=== PATIENT | male | born 1960 | race Caucasian/White ===

== ENCOUNTER 2019-05-06 01:30 | Emergency (ER) | payer BC ==
[~2019-05-06 01:30] MED LIST: CYCL10 PO; IBUP200 PO; LIDO5TP TOP; Mobic15 MG PO
== END 2019-05-06 02:00 | disposition left against medical advice (07) ==
LOC: ER 01:30
DX: Z53.21 Procedure and treatment not carried out due to patient leaving prior to being seen by health care provider (principal)

== ENCOUNTER 2019-05-11 15:34 | Emergency (ER) | payer BC ==
[~2019-05-11] VITALS: Ht 180.3 cm; Wt 81.7 kg
[2019-05-11] MEDS ORDERED: LEVEMIR FL100 UNIT/1 SC (16:13)
[2019-05-11] MEDS ORDERED: INSDET100 SC (16:17)
[2019-05-11] MEDS ORDERED: LISI20 PO (16:19)
[2019-05-11] MEDS ORDERED: AMLO10 PO (16:19)
[2019-05-11] MEDS ORDERED: Amaryl1 MG PO (16:19)
== END 2019-05-11 16:27 | disposition home or self-care (01) ==
LOC: ER 15:34
DX: Z76.0 Encounter for issue of repeat prescription (principal); I10 Essential (primary) hypertension; E11.42 Type 2 diabetes mellitus with diabetic polyneuropathy; Z79.4 Long term (current) use of insulin; Z79.899 Other long term (current) drug therapy
CPT/HCPCS: 82947; 99283

== ENCOUNTER 2019-05-24 17:01 | Emergency (ER) | payer BC ==
[~2019-05-24] VITALS: Ht 180.3 cm; Wt 90.7 kg
[~2019-05-24 17:01] MED LIST changes: +AMLO10 PO; +Amaryl1 MG PO; +INSDET100 SC; +LEVEMIR FL100 UNIT/1 SC; +LISI20 PO
[2019-05-24] MEDS ORDERED: BENADRYL25 MG PO (18:47)
[2019-05-24] MEDS ORDERED: Prednisone20 MG PO (18:47)
[2019-05-24] MEDS ORDERED: PRAVASTATIN SOD10 MG PO (19:06)
== END 2019-05-24 19:16 | disposition home or self-care (01) ==
LOC: ER 17:01
DX: L23.7 Allergic contact dermatitis due to plants, except food (principal); E11.42 Type 2 diabetes mellitus with diabetic polyneuropathy; I10 Essential (primary) hypertension; Z79.4 Long term (current) use of insulin; Z79.899 Other long term (current) drug therapy
CPT/HCPCS: 96372; 99282-25; J3301; Q0163

== ENCOUNTER 2019-05-31 03:52 | Emergency (ER) | payer SELFPAY ==
[~2019-05-31] VITALS: Ht 180.3 cm; Wt 99.8 kg
[~2019-05-31 03:52] MED LIST changes: +BENADRYL25 MG PO; +PRAVASTATIN SOD10 MG PO; +Prednisone20 MG PO
[2019-05-31] MEDS ORDERED: TRAM50 (04:08)
[2019-05-31] MEDS ORDERED: Vistaril50 MG PO (04:29)
== END 2019-05-31 04:51 | disposition home or self-care (01) ==
LOC: ER 03:52
DX: L23.7 Allergic contact dermatitis due to plants, except food (principal); E11.9 Type 2 diabetes mellitus without complications; I10 Essential (primary) hypertension; Z79.899 Other long term (current) drug therapy; Z79.4 Long term (current) use of insulin; Z79.891 Long term (current) use of opiate analgesic
CPT/HCPCS: 99283; J1200; J7512; Q0163

== ENCOUNTER 2019-06-09 18:05 | Emergency (ER) | payer SELFPAY ==
[~2019-06-09] VITALS: Ht 180.3 cm; Wt 99.8 kg
[~2019-06-09 18:05] MED LIST changes: +TRAM50; +Vistaril50 MG PO
[2019-06-09] MEDS ORDERED: Keflex500 MG PO (18:39)
[2019-06-09] MEDS ORDERED: Bactrim Ds Tab1 EACH PO (18:39)
== END 2019-06-09 18:57 | disposition home or self-care (01) ==
LOC: ER 18:05
DX: L03.114 Cellulitis of left upper limb (principal); L02.414 Cutaneous abscess of left upper limb; E11.9 Type 2 diabetes mellitus without complications; I10 Essential (primary) hypertension; E78.5 Hyperlipidemia, unspecified; Z79.899 Other long term (current) drug therapy; Z79.4 Long term (current) use of insulin
CPT/HCPCS: 99282

== ENCOUNTER 2019-06-20 22:52 | Emergency (ER) | payer OTHER ==
[~2019-06-20] VITALS: Ht 180.3 cm; Wt 104.3 kg
[~2019-06-20 22:52] MED LIST changes: +Bactrim Ds Tab1 EACH PO; +Keflex500 MG PO
== END 2019-06-21 00:26 | disposition home or self-care (01) ==
LOC: ER 22:52
DX: S50.812A Abrasion of left forearm, initial encounter (principal); S50.811A Abrasion of right forearm, initial encounter; R07.89 Other chest pain; E11.9 Type 2 diabetes mellitus without complications; I10 Essential (primary) hypertension; Z79.899 Other long term (current) drug therapy; Z79.4 Long term (current) use of insulin; X58.XXXA Exposure to other specified factors, initial encounter
CPT/HCPCS: 71046; 99283-25

== ENCOUNTER 2019-06-26 12:06 | Emergency (ER) | payer OTHER ==
[~2019-06-26] VITALS: Ht 180.3 cm; Wt 109.8 kg
[2019-06-26] MEDS ORDERED: MUPIROCIN15 GM TOP (13:06)
[2019-06-26] MEDS ORDERED: Ultram50 MG PO (13:06)
== END 2019-06-26 13:26 | disposition home or self-care (01) ==
LOC: ER 12:06
DX: S51.812D Laceration without foreign body of left forearm, subsequent encounter (principal); S61.511D Laceration without foreign body of right wrist, subsequent encounter; L03.114 Cellulitis of left upper limb; L03.113 Cellulitis of right upper limb; I10 Essential (primary) hypertension; E11.9 Type 2 diabetes mellitus without complications; Z79.899 Other long term (current) drug therapy; Z79.4 Long term (current) use of insulin
CPT/HCPCS: 99282

== ENCOUNTER 2019-06-30 03:59 | Emergency (ER) | payer OTHER ==
[~2019-06-30] VITALS: Ht 172.7 cm; Wt 102.1 kg
[~2019-06-30 03:59] MED LIST changes: +MUPIROCIN15 GM TOP; +Ultram50 MG PO
== END 2019-06-30 05:00 | disposition home or self-care (01) ==
LOC: ER 03:59
DX: L03.114 Cellulitis of left upper limb (principal); E11.9 Type 2 diabetes mellitus without complications; I10 Essential (primary) hypertension; Z91.14 Patient's other noncompliance with medication regimen; Z79.899 Other long term (current) drug therapy
CPT/HCPCS: 99282; A9270-GY

== ENCOUNTER 2019-07-12 01:52 | Emergency (ER) | payer OTHER ==
[~2019-07-12] VITALS: Ht 180.3 cm; Wt 104.3 kg
[2019-07-12] MEDS ORDERED: Mupirocin22 GM TOP (04:13)
== END 2019-07-12 04:33 | disposition home or self-care (01) ==
LOC: ER 01:52
DX: L03.012 Cellulitis of left finger (principal); E11.9 Type 2 diabetes mellitus without complications; I10 Essential (primary) hypertension; Z79.899 Other long term (current) drug therapy
CPT/HCPCS: 99283

== ENCOUNTER 2019-07-26 00:09 | Emergency (ER) | payer OTHER ==
[~2019-07-26] VITALS: Ht 180.3 cm; Wt 106.6 kg
[~2019-07-26 00:09] MED LIST changes: +Mupirocin22 GM TOP
[2019-07-26] MEDS ORDERED: CEFP200 PO (00:47)
== END 2019-07-26 00:53 | disposition home or self-care (01) ==
LOC: ER 00:09
DX: L03.012 Cellulitis of left finger (principal); R23.8 Other skin changes; E11.9 Type 2 diabetes mellitus without complications; I10 Essential (primary) hypertension; Z79.899 Other long term (current) drug therapy
CPT/HCPCS: 99282

== ENCOUNTER 2019-07-28 01:11 | Observation (INO) | payer OTHER ==
[~2019-07-28] VITALS: Ht 180.3 cm; Wt 101.6 kg
[~2019-07-28 01:11] MED LIST changes: +CEFP200 PO
[2019-07-28 02:06] LABS: BASOPHILS ABSOLUTE AUTO 0.03 K/mm3 (0.00-0.23); BASOPHILS PERCENT AUTO 0 % (0-2); EOSINOPHILS ABSOLUTE AUTO 0.17 K/mm3 (0.00-0.68); EOSINOPHILS PERCENT AUTO 1 % (0-6); Hematocrit 43.3 % (37.0-53.0); Hemoglobin 14.2 g/dL (13.5-17.5); IMMATURE GRAN ABSOLUTE AUTO 0.13 K/mm3 (0.00-0.10); IMMATURE GRAN PERCENT AUTO 1 % (0-1); LYMPHOCYTES ABSOLUTE AUTO 1.46 K/mm3 (0.84-5.20); LYMPHOCYTES PERCENT AUTO 12 % (21-46); MONOCYTES ABSOLUTE AUTO 0.75 K/mm3 (0.16-1.47); MONOCYTES PERCENT AUTO 6 % (4-13); Mean Corpuscular HGB Conc 32.8 g/dL (31.5-36.5); Mean Corpuscular Volume 85 fL (80-100); Mean Platelet Volume 9.7 fL (9.1-12.4); NEUTROPHILS ABSOLUTE AUTO 9.51 K/mm3 (1.96-9.15); NEUTROPHILS PERCENT AUTO 79 % (41-73); Platelet Count 286 K/mm3 (150-400); RDW Coefficient Variation 13.9 % (11.7-14.2); RDW Standard Deviation 43.2 fL (35.1-46.3); Red Blood Cell Count 5.07 M/mm3 (4.30-5.90); White Blood Cell Count 12.05 K/mm3 (4.00-11.30)
[2019-07-28 02:20] LABS: Alanine Aminotransfer (ALT/SGP 33 U/L (12-78); Albumin, Blood 3.1 g/dL (3.4-5.0); Albumin/Globulin Ratio 0.8 (0.8-1.8); Alk Phos 113 U/L (50-136); Anion Gap 11 mmol/L (6-16); Aspartate Aminotrans (AST/SGOT 17 U/L (12-37); Bilirubin, Total 0.5 mg/dL (0.1-1.0); Blood Urea Nitrogen 13 mg/dL (8-24); Bun/Creatinine Ratio 19.5 (12.0-20.0); CO2, Blood 22 mmol/L (21-32); Calcium, Blood 8.2 mg/dL (8.5-10.1); Chloride, Blood 108 mmol/L (98-108); Creatinine, Blood 0.67 mg/dL (0.60-1.20); Globulin, Blood 3.8 g/dL (2.2-4.0); Glomerular Filtration Rate >60 (60-); Glucose, Blood 246 mg/dL (70-99); Potassium, Blood 3.5 mmol/L (3.5-5.5); Sodium, Blood 141 mmol/L (136-145); Total Protein, Blood 6.9 g/dL (6.4-8.2); Troponin I 0.059 ng/mL (0.000-0.040)
[2019-07-28] MEDS ORDERED: GABA300 PO (04:57)
--- NOTE | 2019-07-28 06:13 | NUR ---
SHIFT SUMMARY PT WAS A NEW ADMIT DURING THE NIGHT, ARRIVING ON THE FLOOR AT 0452. HE IS A&O X 4 AND INDEPENDENT IN THE ROOM. PT WAS ADMITTED FOR CHEST PAIN AFTER HAVING AN ANXIETY ATTACK DURING A POLICE STAND-OFF AT HIS HOME PER ER REPORT. HE HAS DENIED CP SINCE ADMISSION. NO C/O NAUSEA OR SOB. TELE SHOWED NSR IN THE 70S. VITALS STABLE. NO ACUTE CHANGES IN PT CONDITION NOTED SINCE ADMISSION. WILL CONTINUE TO MONITOR AND TREAT PER EMAR UNTIL HAND OFF TO DAY SHIFT RN.
--- NOTE | 2019-07-28 07:48 | NUR ---
trop ch 1.15, attempt to notify dani via phone, message to voicemail. charge aide notified.
[2019-07-28 09:01] LABS: International Normalized Ratio 0.99; Prothrombin Time Results 10.6 Sec (9.7-11.5)
[2019-07-28 13:27] LABS: U Amphetamine Screen Not Detected; U Barbituate Screen Not Detected; U Benzodiazapine Screen Not Detected; U Buprenorphine Screen Not Detected; U Cannabinoids Screen Not Detected; U Cocaine Screen Not Detected; U Methadone Screen Not Detected; U Methamphetamine Screen Not Detected; U Opiates Screen Not Detected; U Oxycodone Screen Not Detected; U Phencyclidine Screen Not Detected; U Propoxyphene Screen Not Detected
--- NOTE | 2019-07-28 16:26 | NUR ---
SUMMARY TROP CH THIS AM 1.15, DR CRONIN START PT ON HEP GTT & ORDER CARDIAC CONSULT. DR BATISTA IN TO SEE PT, REVIEW TX'S, ORDER CARDIAC STRESS TEST. NUC MED COMPLETE 1ST PORTION TODAY, HE WILL HAVE 2ND PORTION IN AM, NPO X WATER/MEDS AFTER MIDNITE. HE HAS STATED NO CHEST PAIN, PRESSURE OR DISCOMFORT T/O DAY. NO N/T EXTREMITIES. TELE MX REPORT NSR T/O DAY, HR 70-80'S. VSS. PT STATES HAS HAD MULT STRESSORS RECENTLY, HIS MOTHER CALLED STATE SHE IS STEPPING IN TO ASSIST HIM WITH LEGAL ISSUES/STRESSORS, RELAYED TO PT. HE HAS BEEN CALM & INCREASINGLY PLEASANT, ATTEMPTING TO RELAX TODAY.
--- NOTE | 2019-07-29 06:05 | NUR ---
PENETRATION TESTER SUMMARY PT A/O X4. PLEASANT AND COOPERATIVE. PT DENIES CHEST PAIN, NAUSEA AND DIZZINIESS. HEPARIN DRIP RATE HAS BEEN TITRATED UP PER PHARMACY. HEPARIN BOLUS ALSO GIVEN VIA IV PER PHARMACY. BOTH HEPARINS VERIFIED WITH JADEN BALDERAS. SEE EMAR FOR MORE INFO. PT WAS FOUND TO BE IN THE SHOWER WHILE HEPARIN WAS STILL RUNNING AND TELE WAS STILL ON. PT WAS NOTIFIED EARILER IN SHIFT THAT I WOULD CHECK WITH THE DR. FIRST TO KNOW IF HE CAN BE DISCONNCTED FROM HEPARIN TO TAKE SHOWER. HOWEVER, PT HAD ALREADY WENT TO THE BATHROOM BY HIMSELF BY THE TIME I COULD TELL HIM THAT HE CANNOT BE DISCONNECTED FROM HEPARIN DRIP. I WENT IN AFTER I FOUND OUT HE WAS IN THE SHOWER AND ASKED HIM ABOUT HIS IV. PT DID NOT GET IV SITE WET AND WAS CONNECTED TO HEPARIN THE ENTIRE TIME. TELE STICKERS WERE WET AND REPLACED BY VANDANA STOUT. PT INSTRUCTED THAT HE CANNOT DISCONNECT HIS IV AND IF HE NEEDS ANYTHING, TO USE CALL LIGHT AND LET STAFF KNOW. PT INSTRUCTED IT IS VERY IMPORTANT TO STAY CONNECTED TO HEPARIN DRIP. PT SLEPT WELL THROUGH THE NIGHT. VSS, WILL CONTINUE TO MONITOR.
--- NOTE | 2019-07-29 12:14 | NUR ---
HEPERIN GTT STOPPED AT 1210
[2019-07-29] MEDS ORDERED: ATOR80 PO (15:13)
[2019-07-29] MEDS ORDERED: METO50ER PO (15:14)
[2019-07-29] MEDS ORDERED: CLOP75 PO (15:14)
[2019-07-29] MEDS ORDERED: ASPI81CH PO (15:14)
--- NOTE | 2019-07-29 16:35 | NUR ---
1548 PT DISCHARGED HOME VIA PERSONAL VEHICLE ACCOMPANIED AND DRIVEN BY HIS MOTHER. PT ESCORTED TO FACILITY ENTRANCE VIA W/C BY STAFFING BRANCH MANAGER. IV REMOVED. D/C PAPERWORK REVIEWED WITH PT AND COPY PROVIDED. NEW RX FAXED TO [facility] PER PT REQUEST. PT DENIED CHEST PAIN THIS SHIFT, TOLERATED STRESS TEST WELL.
== END 2019-07-29 15:48 | disposition home or self-care (01) ==
LOC: ER 01:11 → MEDS 01:12
PROVIDERS: Emergency Medicine; Family Medicine; Pharmacist; ADMIT Hospitalist
DX: I21.4 Non-ST elevation (NSTEMI) myocardial infarction (principal); I10 Essential (primary) hypertension; E78.5 Hyperlipidemia, unspecified; I24.9 Acute ischemic heart disease, unspecified; E11.59 Type 2 diabetes mellitus with other circulatory complications; D72.829 Elevated white blood cell count, unspecified; Z79.82 Long term (current) use of aspirin; Z79.84 Long term (current) use of oral hypoglycemic drugs; Z79.899 Other long term (current) drug therapy
CPT/HCPCS: 36415; 71046; 78452; 80053; 82947; 84484; 85025; 85610; 85730; 93005; 93010; 93017; 93306; 96374; 96376; 99285-25; A9500; G0378; J0706; J1644; J2785

== ENCOUNTER 2022-04-27 22:52 | Emergency (ER) | payer OTHER ==
[~2022-04-27] VITALS: Ht 175.3 cm; Wt 108.9 kg
[~2022-04-27 22:52] MED LIST changes: +ASPI81CH PO; +ATOR80 PO; +CLOP75 PO; +GABA300 PO; +METO50ER PO
[2022-04-28] MEDS ORDERED: DOXY100 PO (00:55)
[2022-04-28] MEDS ORDERED: METF500C PO (01:19)
== END 2022-04-28 03:20 | disposition home or self-care (01) ==
LOC: ER 22:52
DX: L02.211 Cutaneous abscess of abdominal wall (principal); E11.65 Type 2 diabetes mellitus with hyperglycemia; I10 Essential (primary) hypertension; E78.5 Hyperlipidemia, unspecified; I25.2 Old myocardial infarction; F17.290 Nicotine dependence, other tobacco product, uncomplicated; Z79.899 Other long term (current) drug therapy; Z79.82 Long term (current) use of aspirin
CPT/HCPCS: 10061; 82947; 99283-25; A9270; J1815

== ENCOUNTER 2022-06-01 18:22 | Emergency (ER) | payer OTHER ==
[~2022-06-01] VITALS: Ht 175.3 cm; Wt 111.1 kg
[~2022-06-01 18:22] MED LIST changes: +DOXY100 PO; +METF500C PO
[2022-06-01 18:55] LABS: BASOPHILS ABSOLUTE AUTO 0.03 K/mm3 (0.00-0.23); BASOPHILS PERCENT AUTO 0 % (0-2); EOSINOPHILS ABSOLUTE AUTO 0.16 K/mm3 (0.00-0.68); EOSINOPHILS PERCENT AUTO 1 % (0-6); Hematocrit 38.2 % (37.0-53.0); Hemoglobin 13.2 g/dL (13.5-17.5); IMMATURE GRAN ABSOLUTE AUTO 0.11 K/mm3 (0.00-0.10); IMMATURE GRAN PERCENT AUTO 1 % (0-1); LYMPHOCYTES ABSOLUTE AUTO 1.17 K/mm3 (0.84-5.20); LYMPHOCYTES PERCENT AUTO 10 % (21-46); MONOCYTES ABSOLUTE AUTO 0.87 K/mm3 (0.16-1.47); MONOCYTES PERCENT AUTO 7 % (4-13); Mean Corpuscular HGB 26.8 pg (26.0-34.0); Mean Corpuscular HGB Conc 34.6 g/dL (31.5-36.5); Mean Corpuscular Volume 78 fL (80-100); Mean Platelet Volume 9.2 fL (9.1-12.4); NEUTROPHILS ABSOLUTE AUTO 9.79 K/mm3 (1.96-9.15); NEUTROPHILS PERCENT AUTO 81 % (41-73); Platelet Count 458 K/mm3 (150-400); RDW Coefficient Variation 12.8 % (11.7-14.2); RDW Standard Deviation 36.5 fL (35.1-46.3); Red Blood Cell Count 4.92 M/mm3 (4.30-5.90); White Blood Cell Count 12.13 K/mm3 (4.00-11.30)
[2022-06-01 19:16] LABS: Albumin/Globulin Ratio 0.4 (0.8-1.8); Bilirubin, Total 0.4 mg/dL (0.1-1.0); Bun/Creatinine Ratio 13.7 (12.0-20.0); Calcium, Blood 8.6 mg/dL (8.5-10.1); Creatinine, Blood 0.51 mg/dL (0.60-1.20); Globulin, Blood 5.1 g/dL (2.2-4.0); Potassium, Blood 3.1 mmol/L (3.5-5.5); Total Protein, Blood 7.1 g/dL (6.4-8.2)
[2022-06-01] MEDS ORDERED: SULTRIDS PO (20:47)
== END 2022-06-01 20:57 | disposition home or self-care (01) ==
LOC: ER 18:22
PROVIDERS: Emergency Medicine
DX: L02.31 Cutaneous abscess of buttock (principal); E11.65 Type 2 diabetes mellitus with hyperglycemia; I10 Essential (primary) hypertension; I25.2 Old myocardial infarction; E78.5 Hyperlipidemia, unspecified; F17.220 Nicotine dependence, chewing tobacco, uncomplicated; Z79.899 Other long term (current) drug therapy; Z79.82 Long term (current) use of aspirin; Z79.84 Long term (current) use of oral hypoglycemic drugs
CPT/HCPCS: 36415; 80053; 82947; 85025; A9270

== ENCOUNTER 2022-06-06 12:32 | Inpatient (IN) | payer OTHER ==
[~2022-06-06] VITALS: Ht 177.8 cm; Wt 108.9 kg
[~2022-06-06 12:32] MED LIST changes: +SULTRIDS PO
[2022-06-06 14:03] LABS: BASOPHILS ABSOLUTE AUTO 0.02 K/mm3 (0.00-0.23); BASOPHILS PERCENT AUTO 0 % (0-2); EOSINOPHILS ABSOLUTE AUTO 0.24 K/mm3 (0.00-0.68); EOSINOPHILS PERCENT AUTO 3 % (0-6); Hematocrit 40.3 % (37.0-53.0); Hemoglobin 13.4 g/dL (13.5-17.5); IMMATURE GRAN PERCENT AUTO 1 % (0-1); LYMPHOCYTES ABSOLUTE AUTO 1.38 K/mm3 (0.84-5.20); LYMPHOCYTES PERCENT AUTO 19 % (21-46); MONOCYTES ABSOLUTE AUTO 0.45 K/mm3 (0.16-1.47); MONOCYTES PERCENT AUTO 6 % (4-13); Mean Corpuscular HGB 26.1 pg (26.0-34.0); Mean Corpuscular HGB Conc 33.3 g/dL (31.5-36.5); Mean Corpuscular Volume 78 fL (80-100); Mean Platelet Volume 9.3 fL (9.1-12.4); NEUTROPHILS ABSOLUTE AUTO 5.12 K/mm3 (1.96-9.15); NEUTROPHILS PERCENT AUTO 70 % (41-73); Platelet Count 557 K/mm3 (150-400); RDW Coefficient Variation 12.8 % (11.7-14.2); RDW Standard Deviation 36.6 fL (35.1-46.3); Red Blood Cell Count 5.14 M/mm3 (4.30-5.90); White Blood Cell Count 7.31 K/mm3 (4.00-11.30)
[2022-06-06 14:12] LABS: Albumin/Globulin Ratio 0.4 (0.8-1.8); Bilirubin, Total 0.3 mg/dL (0.1-1.0); Bun/Creatinine Ratio 12.1 (12.0-20.0); Calcium, Blood 8.4 mg/dL (8.5-10.1); Creatinine, Blood 0.5 mg/dL (0.60-1.20); Globulin, Blood 5.3 g/dL (2.2-4.0); Potassium, Blood 3.5 mmol/L (3.5-5.5); Total Protein, Blood 7.3 g/dL (6.4-8.2)
--- NOTE | 2022-06-06 19:37 | NUR ---
ARRIVAL SUMMARY PT ARRIVED TO THE FLOOR AT 1830, A/OX4, REPORTS NOT WANTING TO STAND UP D/T ABSCESS DRAINAGE, TRANSFERRED TO BED USING SLIDER SHEET, CHANGED OUT DIRTY LINENS FROM ER AND ASSESSED ABSCESS WHICH HAD MODERATE SANGUINOUS DRAINAGE c PUS. WHITE SUPER ABSORBANCY PAD PLACED UNDER PATIENT AND ABD PLACED OVER ABSCESS TO HELP MANAGE DRAINAGE. PT SETTLED IN ROOM. REPORT GIVEN TO TODD STANLEY.
[2022-06-06 20:33] LABS: Influenza A, PCR NEGATIVE (NEGATIVE); Influenza B, PCR NEGATIVE (NEGATIVE); Resp Syncytial Virus, PCR NEGATIVE (NEGATIVE); SARS-Cov-2 (COVID-19) PCR, MMC NEGATIVE (NEGATIVE)
--- NOTE | 2022-06-07 03:59 | NUR ---
VSS. GROIN AND BUTTOX ABSCESS COVERED WITH ABD PADS, CHANGED PRN. PURULENT DRAINAGE NOTED FROM BOTH ABSCESSES. BOTH SITES ARE NOTED TO BE SWOLLEN AND RED, THEY REMAIN BLANCHABLE. THE PT SLEPT T/O THE WHOLE NIGHT. PT DID NOT REQUIRE ANY PAIN MEDICATION. PT HAS BEEN NPO SINCE 0000. PLAN FOR PT TO HAVE AN I&D TODAY. THE PATIENT IS CURRENTLY SLEEPING, IN NO DISTRESS, CALL LIGHT IN REACH.
[2022-06-07 04:53] LABS: BASOPHILS ABSOLUTE AUTO 0.04 K/mm3 (0.00-0.23); BASOPHILS PERCENT AUTO 1 % (0-2); EOSINOPHILS PERCENT AUTO 5 % (0-6); Hematocrit 37.5 % (37.0-53.0); Hemoglobin 12.2 g/dL (13.5-17.5); IMMATURE GRAN ABSOLUTE AUTO 0.12 K/mm3 (0.00-0.10); IMMATURE GRAN PERCENT AUTO 2 % (0-1); LYMPHOCYTES ABSOLUTE AUTO 1.85 K/mm3 (0.84-5.20); LYMPHOCYTES PERCENT AUTO 28 % (21-46); MONOCYTES ABSOLUTE AUTO 0.57 K/mm3 (0.16-1.47); MONOCYTES PERCENT AUTO 9 % (4-13); Mean Corpuscular HGB 25.8 pg (26.0-34.0); Mean Corpuscular HGB Conc 32.5 g/dL (31.5-36.5); Mean Corpuscular Volume 79 fL (80-100); NEUTROPHILS ABSOLUTE AUTO 3.76 K/mm3 (1.96-9.15); NEUTROPHILS PERCENT AUTO 57 % (41-73); Platelet Count 498 K/mm3 (150-400); RDW Coefficient Variation 12.9 % (11.7-14.2); RDW Standard Deviation 36.9 fL (35.1-46.3); Red Blood Cell Count 4.73 M/mm3 (4.30-5.90); White Blood Cell Count 6.64 K/mm3 (4.00-11.30)
[2022-06-07 08:02] LABS: Albumin, Blood 1.8 g/dL (3.4-5.0); Albumin/Globulin Ratio 0.4 (0.8-1.8); Bilirubin, Total 0.3 mg/dL (0.1-1.0); Calcium, Blood 8.1 mg/dL (8.5-10.1); Creatinine, Blood 0.56 mg/dL (0.60-1.20); Globulin, Blood 4.5 g/dL (2.2-4.0); Potassium, Blood 3.2 mmol/L (3.5-5.5); Total Protein, Blood 6.3 g/dL (6.4-8.2)
--- NOTE | 2022-06-07 08:46 | NUR ---
phone conversation with dr. lock, blood sugar is 213. Pt's surgery is scheduled for 1500. Dr. Lock with orders to hold insulin due to NPO status.
--- NOTE | 2022-06-07 13:12 | NUR ---
Pt is NPO awaiting surgery. Room air. IV in left wrist, patent and infusing. Pt with three abscesses on inner left thigh, inner right thigh and right glute draining serosanguinous drainage. Insulin held per Dr. Lock while pt is NPO. Pt continually denies pain when asked, states, "I don't know what you can do to help." Withdrawn mood. He has remained quiet in bed, attempting to rest most of the shift.
--- NOTE | 2022-06-07 19:38 | NUR ---
PT UNDERWENT I AND D PROCEDURE TODAY FOR ABSCESSES ON INNER THIGHS AND RIGHT BUTTOCK. THERE IS A DRE DRAIN TO THE RIGHT BUTTOCK, COVERED WITH A CLEAN/DRY/INTACT DRESSING. TWO ABSCESSES ON INNER RIGHT THIGH AND INNER LEFT THIGH COVERED WITH GAUZE/PAPER TAPE. PT IS RESTING WELL AFTER SURGERY. VITAL SIGNS STABLE. 2LPM O2 VIA NC. GOOD APPETITE, TOLERATING PO INTAKE. PT USES CALL LIGHT APPROPRIATELY.
[2022-06-07 23:37] LABS: Vancomycin, Trough 27.2 ug/mL (5.0-10.0)
--- NOTE | 2022-06-08 01:18 | NUR ---
BLOOD SUAGR CALL PLACED TO DR SAVAGE AROUND 2004 FOR A CBG OF 415, OBTAINED ORDER FOR 8 UNITS OF HUMALOG NOW. CBG CHECKED AGAIN AROUND 2099 BEFORE HS DOSE OF GLARGINE, IT WAS 446. CBG CHECKED AGAIN AROUND 2214 AND IT WAS 457, ANOTHER CALLED PLACED TO DR SAVAGE AND RECIEVED AN ORDER FOR 6 UNITS OF HUMALOG NOW. CBG RECHECKED AT 0020 WITH RESULTS OF 408. PLAN TO CHECK PTS CBG THIS AM TO ASSESS IF IT IS STILL TRENDING DOWN. PLAN TO CALL HOSPITALIST WITH FURTHER CONCERNS.
[2022-06-08 04:50] LABS: BASOPHILS ABSOLUTE AUTO 0.02 K/mm3 (0.00-0.23); BASOPHILS PERCENT AUTO 0 % (0-2); EOSINOPHILS ABSOLUTE AUTO 0.01 K/mm3 (0.00-0.68); EOSINOPHILS PERCENT AUTO 0 % (0-6); Hemoglobin 11.8 g/dL (13.5-17.5); IMMATURE GRAN ABSOLUTE AUTO 0.15 K/mm3 (0.00-0.10); IMMATURE GRAN PERCENT AUTO 2 % (0-1); LYMPHOCYTES PERCENT AUTO 14 % (21-46); MONOCYTES ABSOLUTE AUTO 0.76 K/mm3 (0.16-1.47); MONOCYTES PERCENT AUTO 8 % (4-13); Mean Corpuscular HGB 25.4 pg (26.0-34.0); Mean Corpuscular HGB Conc 31.9 g/dL (31.5-36.5); Mean Corpuscular Volume 80 fL (80-100); Mean Platelet Volume 9.2 fL (9.1-12.4); NEUTROPHILS ABSOLUTE AUTO 7.35 K/mm3 (1.96-9.15); NEUTROPHILS PERCENT AUTO 77 % (41-73); Platelet Count 521 K/mm3 (150-400); RDW Coefficient Variation 13.1 % (11.7-14.2); RDW Standard Deviation 37.2 fL (35.1-46.3); Red Blood Cell Count 4.64 M/mm3 (4.30-5.90); White Blood Cell Count 9.59 K/mm3 (4.00-11.30)
[2022-06-08 05:15] LABS: Albumin, Blood 1.8 g/dL (3.4-5.0); Anion Gap 8 mmol/L (6-16); Blood Urea Nitrogen 15 mg/dL (8-24); Bun/Creatinine Ratio 10.3 (12.0-20.0); CO2, Blood 23 mmol/L (21-32); Calcium, Blood 7.7 mg/dL (8.5-10.1); Chloride, Blood 103 mmol/L (98-108); Creatinine, Blood 1.45 mg/dL (0.60-1.20); Glomerular Filtration Rate 55 (60-); Glucose, Blood 422 mg/dL (70-99); Phosphorus, Blood 3.2 mg/dL (2.5-4.9); Potassium, Blood 4.2 mmol/L (3.5-5.5); Sodium, Blood 134 mmol/L (136-145); Vancomycin, Random 22.9 ug/mL
--- NOTE | 2022-06-08 05:35 | NUR ---
BLOOD SUAGR AM LAB RESULTS SHOW A CBG OF 402. CALL PLACED TO DR NEVILLE, OBTAINED ORDER FOR 15 U LANTUS NOW AND THEN 12U OF LANTUS BID. PLAN TO CALL WITH FURTHER CONCERNS
--- NOTE | 2022-06-08 05:36 | NUR ---
POD1 FOR GROIN ABSCESS REMOVAL ABD DRE DRAIN PLACEMENT. MODERATE SS DRAINAGE NOTED FROM THE DRE. NEW 4X4 GAUZE PLACED ON DRE, OTHER DRESSINGS ARE C/D/I. VSS. THE PT SLEPT ON AND OFF T/O THE NIGHT. PAIN MANAGED WITH TYLENOL AND FENTYNAL. PT VOIDING INTO URINAL AND PASSING FLATTUS W/O DIFFICULTY. TOLLERATING PO INTAKE W/O N/V. PT DID NOT GET OOB THIS SHIFT. LPAN FOR PT TO REMAIN ON IV ABD AND D/C HOME WHEN APPROPRIATE. THE PATIENT IS RESTING IN BED, IN NO DISTRESS, CALL LIGHT IN REACH
--- NOTE | 2022-06-08 15:38 | NUR ---
06/08/22 1538 Karli Trotter VERIFICATIONS: EDIT CHART.
--- NOTE | 2022-06-08 16:31 | NUR ---
SHIFT SUMMARY PT POD #1 FOR I&D TO R GROIN, THIGH, AND BUTTOCK. 4X4 [address] IN PL[address] WITH TAPE, CDI. PT VERY WITHDRAWN AND FATIGUED. PT DECLINES TO GET UP OR TO TAKE A SHOWER. BROTHER OF THE PT REPORTED THAT THIS BEHAVIOR IS HIS BASELINE. PT'S INSULIN ADJUSTED AND BLOOD GLUCOSE LEVELS TRENDING DOWN. PT CONTINUING TO RECEIVE IV ABX AND VSS.
[2022-06-09 05:19] LABS: BASOPHILS ABSOLUTE AUTO 0.03 K/mm3 (0.00-0.23); BASOPHILS PERCENT AUTO 0 % (0-2); EOSINOPHILS ABSOLUTE AUTO 0.14 K/mm3 (0.00-0.68); EOSINOPHILS PERCENT AUTO 1 % (0-6); Hematocrit 36.8 % (37.0-53.0); Hemoglobin 11.8 g/dL (13.5-17.5); IMMATURE GRAN ABSOLUTE AUTO 0.19 K/mm3 (0.00-0.10); IMMATURE GRAN PERCENT AUTO 2 % (0-1); LYMPHOCYTES ABSOLUTE AUTO 1.92 K/mm3 (0.84-5.20); LYMPHOCYTES PERCENT AUTO 18 % (21-46); MONOCYTES ABSOLUTE AUTO 0.81 K/mm3 (0.16-1.47); MONOCYTES PERCENT AUTO 8 % (4-13); Mean Corpuscular HGB 25.7 pg (26.0-34.0); Mean Corpuscular HGB Conc 32.1 g/dL (31.5-36.5); Mean Corpuscular Volume 80 fL (80-100); NEUTROPHILS ABSOLUTE AUTO 7.43 K/mm3 (1.96-9.15); NEUTROPHILS PERCENT AUTO 71 % (41-73); Platelet Count 470 K/mm3 (150-400); RDW Coefficient Variation 13.2 % (11.7-14.2); RDW Standard Deviation 37.9 fL (35.1-46.3); Red Blood Cell Count 4.59 M/mm3 (4.30-5.90); White Blood Cell Count 10.52 K/mm3 (4.00-11.30)
[2022-06-09 05:45] LABS: Albumin, Blood 1.8 g/dL (3.4-5.0); Anion Gap 8 mmol/L (6-16); Blood Urea Nitrogen 17 mg/dL (8-24); Bun/Creatinine Ratio 7.7 (12.0-20.0); CO2, Blood 23 mmol/L (21-32); Calcium, Blood 7.8 mg/dL (8.5-10.1); Chloride, Blood 109 mmol/L (98-108); Creatinine, Blood 2.21 mg/dL (0.60-1.20); Glomerular Filtration Rate 33 (60-); Glucose, Blood 182 mg/dL (70-99); Phosphorus, Blood 3.6 mg/dL (2.5-4.9); Potassium, Blood 3.5 mmol/L (3.5-5.5); Sodium, Blood 140 mmol/L (136-145)
--- NOTE | 2022-06-09 07:30 | NUR ---
PT SLEPT MOST OF NIGHT. NEEDS ENC TO PARTICIPATE IN ACTIVITY, BLOOD SUGARS ARE IMPROVING.VOIDING.IV FLUIDS WERE INFUSING AT SHIFT CHANGE AND STOPPED THIS AM ORDERED FOR 1LITER.PT TAKING SOME PO THIS SHIFT WHICH IS NOTED IMPROVEMENT FROM REPORTED ABSENCE OF PO INTAKE DURING DAY SHIFT.
--- NOTE | 2022-06-09 09:35 | NUR ---
ASSUMED CARE OF PT AT THIS TIME. INTRODUCED MYSELF TO PT, NO NEEDS AT THIS TIME, REQUESTS TO "JUST SLEEP".
--- NOTE | 2022-06-09 09:58 | NUR ---
PT REFUSING MORNING MEDS AT THIS TIME. "I JUST WANT TO SLEEP" WILL ADMINISTER AM MEDICATIONS IN 1 HR. PT AGREES.
--- NOTE | 2022-06-09 15:36 | NUR ---
SHIFT SUMMARY: POD 2 PINROSE DRAIN ON RIGHT BUTTOCK PATIENT IS A&OX4. VS ARE WNL AND IS ON RA. PATIENT DENIES PAIN AT THIS TIME. DRESSING WAS JUST CHANGED WITH GAUZE, ABD PAD, AND HIS DEPENDS THAT ARE NOW C/D/I. DENIES NUMBNESS OR TINGLING IN ALL EXTREMITIES. HE IS A SBA TO THE BATHROOM AND BACK TO BED. HE IS TOLERATING PO INTAKE AND IS VOIDING/PASSING GAS. CALLS APPROPRIATELY. CALL LIGHT WITHIN REACH. THE PLAN IS TO CONTINUE IV FLUIDS TO AIDE WITH IMPROVING HIS KIDNEY LABS/FUNCTION.
[2022-06-10 05:30] LABS: BASOPHILS ABSOLUTE AUTO 0.03 K/mm3 (0.00-0.23); BASOPHILS PERCENT AUTO 0 % (0-2); EOSINOPHILS ABSOLUTE AUTO 0.13 K/mm3 (0.00-0.68); EOSINOPHILS PERCENT AUTO 2 % (0-6); Hemoglobin 11.4 g/dL (13.5-17.5); IMMATURE GRAN ABSOLUTE AUTO 0.16 K/mm3 (0.00-0.10); IMMATURE GRAN PERCENT AUTO 2 % (0-1); LYMPHOCYTES ABSOLUTE AUTO 1.96 K/mm3 (0.84-5.20); LYMPHOCYTES PERCENT AUTO 23 % (21-46); MONOCYTES ABSOLUTE AUTO 0.72 K/mm3 (0.16-1.47); MONOCYTES PERCENT AUTO 8 % (4-13); Mean Corpuscular HGB 25.6 pg (26.0-34.0); Mean Corpuscular HGB Conc 31.7 g/dL (31.5-36.5); Mean Corpuscular Volume 81 fL (80-100); Mean Platelet Volume 9.1 fL (9.1-12.4); NEUTROPHILS ABSOLUTE AUTO 5.69 K/mm3 (1.96-9.15); NEUTROPHILS PERCENT AUTO 66 % (41-73); Platelet Count 439 K/mm3 (150-400); RDW Coefficient Variation 13.4 % (11.7-14.2); RDW Standard Deviation 38.9 fL (35.1-46.3); Red Blood Cell Count 4.45 M/mm3 (4.30-5.90); White Blood Cell Count 8.69 K/mm3 (4.00-11.30)
[2022-06-10 05:53] LABS: Albumin, Blood 1.7 g/dL (3.4-5.0); Anion Gap 9 mmol/L (6-16); Blood Urea Nitrogen 14 mg/dL (8-24); Bun/Creatinine Ratio 5.9 (12.0-20.0); CO2, Blood 21 mmol/L (21-32); Chloride, Blood 113 mmol/L (98-108); Creatinine, Blood 2.36 mg/dL (0.60-1.20); Glomerular Filtration Rate 31 (60-); Glucose, Blood 111 mg/dL (70-99); Phosphorus, Blood 4.2 mg/dL (2.5-4.9); Potassium, Blood 3.4 mmol/L (3.5-5.5); Sodium, Blood 143 mmol/L (136-145)
--- NOTE | 2022-06-10 07:25 | NUR ---
POD 3 S/P I&D. DRE DRAIN LOOSELY IN PLACE. SITE W/SS DRNG, ABD PAD CHANGED X1 THIS SHIFT. PT REP PAIN MINIMAL, MED W/TYLENOL W/REP RELIEF. PT VOIDING W/O DIFFICULTY. IVF ADN ABX CONT PER ORDERS.
--- NOTE | 2022-06-10 14:52 | NUR ---
SHIFT SUMMARY: POD 3 LEFT BUTTOCKS I&D NO SIGNIFICANT CHANGES. PATIENT IS TOLERATING SMALL AMOUNTS OF PO INTAKE AND IS VOIDING/HAVING BMS/PASSING GAS. DR. FORDE CAME BY THE PATIENTS ROOM EARLIER TODAY AND TOOK OUT THE PINROSES SINCE THEY WERE FALLING OUT WHICH HE TOLERATED WELL. HE WAS ABLE TO SHOWER SHORTLY AFTER HAVING THE PINROSES REMOVED AND GOT CLEANED UP. HE IS A SBA TO THE BATHROOM. PAIN IS MANAGED WITH PO TYLENOL. ON HIS TWO INCISION SITES ON HIS CHARLI AREA HE HAS GAUZE AND AN ABD PAD WITH HIS DEPENDS THAT ARE C/D/I. CALLS APPROPRIATELY. CALL LIGHT WITHIN REACH. THE PLAN IS TO HAVE HIS LABS DRAWN AGAIN TO HOPEFULLY SEE IMPROVEMENT. IF THERE IS IMPROVEMENT AND IF ITS APPROPRIATE HE MIGHT BE ABLE TO GO HOME TOMORROW.
--- NOTE | 2022-06-11 06:31 | NUR ---
PT HAD UNEVENTFUL NIGHT. VSS. PT APPEARED TO SLEEP FOR MAJORITY OF NIGHT. INCISION W/SMALL ANT SS DRNG. PT REG GENERALIZED BACK PAIN, DECLINED NEED FOR PAIN MEDS. PT CORDELIA REG PO, IS VOIDING URINE W/O DIFFICULTY. IVF AND ABX CONT PER ORDERS
[2022-06-11 10:14] LABS: Bun/Creatinine Ratio 6.4 (12.0-20.0); Calcium, Blood 7.8 mg/dL (8.5-10.1); Creatinine, Blood 2.18 mg/dL (0.60-1.20); Potassium, Blood 3.6 mmol/L (3.5-5.5)
--- NOTE | 2022-06-11 16:36 | NUR ---
GABAPENTIN PT REPORTS HE WILL NOT TAKE GABAPENTIN. PT ALSO STATES THAT HE HAS IT ORDERED AT HOME AND REFUSES TO TAKE THAT WELL.
--- NOTE | 2022-06-11 19:35 | NUR ---
SHIFT SUMMARY POD4 CHARLI-RECTAL ABSCESS I&D, A/OX 4, VSS, TOLERATING PO, VOIDING AND HAVING BM'S, DENIES PAIN, IV ABX INFUSED ORDERED, PT HAS FLAT AFFECT BUT ANSWERS QUESTIONS. NO ACUTE EVENTS THIS SHIFT, CALL LIGHT IN REACH, REPORT GIVEN TO TODD RN.
--- NOTE | 2022-06-12 03:53 | NUR ---
SHIFT SUMMARY POD 4 FOR PERIRECTAL ABCESS I&D. MEPILEX PLACED ON OPEN WOUND. SS SCANT-MODERATE DRAINAGE NOTED. PATIENT UP TO BSC 1 ASSIST GB, FWW. ABLE TO VOID, AND HAVE BM THIS SHIFT. CLEAN ATTENDS IN PLACE. PATIENT MEDICATED FOR PAIN WITH TYLENOL, DENIES NEED FOR FURTHER PAIN MEDICATION. TOLERATES CL INTAKE, NOT TAKING IN MUCH FOOD. REPORTS HE HAS NO APPETITE. PATIENT ABLE TO REPOSITION SELF IN BED REFUSES ASSISTANCE. VSS. CALL LIGHT IN REACH
[2022-06-12 04:47] LABS: BASOPHILS ABSOLUTE AUTO 0.03 K/mm3 (0.00-0.23); BASOPHILS PERCENT AUTO 0 % (0-2); EOSINOPHILS ABSOLUTE AUTO 0.26 K/mm3 (0.00-0.68); EOSINOPHILS PERCENT AUTO 3 % (0-6); Hematocrit 34.2 % (37.0-53.0); Hemoglobin 11.2 g/dL (13.5-17.5); IMMATURE GRAN ABSOLUTE AUTO 0.07 K/mm3 (0.00-0.10); IMMATURE GRAN PERCENT AUTO 1 % (0-1); LYMPHOCYTES PERCENT AUTO 17 % (21-46); MONOCYTES PERCENT AUTO 7 % (4-13); Mean Corpuscular HGB 26.2 pg (26.0-34.0); Mean Corpuscular HGB Conc 32.7 g/dL (31.5-36.5); Mean Corpuscular Volume 80 fL (80-100); NEUTROPHILS ABSOLUTE AUTO 6.18 K/mm3 (1.96-9.15); NEUTROPHILS PERCENT AUTO 72 % (41-73); Platelet Count 416 K/mm3 (150-400); RDW Coefficient Variation 13.5 % (11.7-14.2); Red Blood Cell Count 4.28 M/mm3 (4.30-5.90); White Blood Cell Count 8.64 K/mm3 (4.00-11.30)
[2022-06-12 05:06] LABS: Bun/Creatinine Ratio 6.5 (12.0-20.0); Creatinine, Blood 2.15 mg/dL (0.60-1.20); Potassium, Blood 3.2 mmol/L (3.5-5.5)
--- NOTE | 2022-06-12 20:06 | NUR ---
SHIFT SUMMARY POD4 CHARLI RECTAL I&D, A/OX 4, VSS, TOLERATING PO THOUGH HE HAS HAD MINIMAL INTAKE TODAY, CBG HAVE BEEN NORMAL AND NO INSULIN COVERAGE, LONG ACTING INSULING HELD THIS AM R/T CBG OF 74 AND NO INTAKE AT BREAKFAST. INCISIONS CLEANED AND DRESSED TO KEEP STOOL OUT OF THEM. PT HAS FLAT AFFECT AND DOESN'T APPEAR TO BE MOTIVATED TO PROVIDE HIS OWN CARE. NO ACUTE EVENTS THIS SHIFT, CALL LIGHT IN REACH, REPORT GIVEN TO TODD RN.
--- NOTE | 2022-06-13 01:18 | NUR ---
HYPERTENSIVE PT REMAINS HYPERTENSIVE WITH REPEAT VITALS CHECK, DR. FISCHER CALLED AND NOTIFIED. RECEIVED ORDER FOR IV HYDRALYZINE.
--- NOTE | 2022-06-13 03:40 | NUR ---
HYPERTENSIVE PT STILL HYPERTENSIVE DESPITE IV HYDRALYZINE, SBP DID NOT CHNAGE STILL 178. DR. FISCHER CALLED AND NOTIFIED. IV LABATELOL, AND TELE ORDERED. INSTRUCTIONS TO HOLD IV FLUIDS FOR NOW.
--- NOTE | 2022-06-13 04:26 | NUR ---
SHIFT SUMMARY PT HAS SLEPT OFF AND ON T/O THE SHIFT. POD 4 I&D OF GROIN ABCESS. WOUNDS DRAINING LIGHT SERIOSANGUINEOUS, DRESSINGS CHANGED THIS SHIFT. PT INCONTINENT OF STOOL. HE FEELS WHEN HE HAS TO GO, BUT DOES NOT GET UP OR CALL FOR ASSISTANCE. PT HAD ONE SMALL BM THIS SHIFT. APPETITE HAS BEEN LOW, BUT HE IS TAKING IN PLENTY OF FLUIDS. PT HYPERTENSIVE THIS SHIFT, PT HAS PMH OF HTN. DR. FISCHER NOTIFIED AND ANTIHYPERTENSIVES ORDERED. PT IS NOW ON TELE, AND FLUIDS ARE ON HOLD FOR NOW. POSSIBLE DC TODAY PENDING LAB RESULTS. BED IN LOWEST POSITON, CALL LIGHT WITHIN REACH.
[2022-06-13 07:24] LABS: BASOPHILS ABSOLUTE AUTO 0.03 K/mm3 (0.00-0.23); BASOPHILS PERCENT AUTO 0 % (0-2); EOSINOPHILS ABSOLUTE AUTO 0.27 K/mm3 (0.00-0.68); EOSINOPHILS PERCENT AUTO 3 % (0-6); Hematocrit 38.2 % (37.0-53.0); Hemoglobin 12.3 g/dL (13.5-17.5); IMMATURE GRAN ABSOLUTE AUTO 0.07 K/mm3 (0.00-0.10); IMMATURE GRAN PERCENT AUTO 1 % (0-1); LYMPHOCYTES ABSOLUTE AUTO 1.15 K/mm3 (0.84-5.20); LYMPHOCYTES PERCENT AUTO 12 % (21-46); MONOCYTES ABSOLUTE AUTO 0.62 K/mm3 (0.16-1.47); MONOCYTES PERCENT AUTO 6 % (4-13); Mean Corpuscular HGB 25.9 pg (26.0-34.0); Mean Corpuscular HGB Conc 32.2 g/dL (31.5-36.5); Mean Corpuscular Volume 81 fL (80-100); Mean Platelet Volume 9.3 fL (9.1-12.4); NEUTROPHILS ABSOLUTE AUTO 7.79 K/mm3 (1.96-9.15); NEUTROPHILS PERCENT AUTO 79 % (41-73); Platelet Count 399 K/mm3 (150-400); RDW Coefficient Variation 13.5 % (11.7-14.2); RDW Standard Deviation 39.8 fL (35.1-46.3); Red Blood Cell Count 4.74 M/mm3 (4.30-5.90); White Blood Cell Count 9.93 K/mm3 (4.00-11.30)
[2022-06-13 07:38] LABS: Bun/Creatinine Ratio 6.2 (12.0-20.0); Calcium, Blood 8.4 mg/dL (8.5-10.1); Creatinine, Blood 2.25 mg/dL (0.60-1.20); Magnesium, Blood 2.1 mg/dL (1.6-2.4)
--- NOTE | 2022-06-13 08:06 | NUR ---
PT INCONTINENT OF STOOL THIS AM, PT ABLE TO AMBULATE TO THE BATHROOM WITH WALKER AND STANDBY ASSIST, REFUSED TO TAKE A SHOWER, DRESSINGS CHANGED, PT REMINDED TO CALL IF HE NEEDS TO GO TO THE BATHROOM FOR ASSISTANCE.
[2022-06-13] MEDS ORDERED: BASAGLAR K100 UNIT/1 SC (15:54)
[2022-06-13] MEDS ORDERED: DOXY100 PO (15:55)
--- NOTE | 2022-06-13 18:11 | NUR ---
PT HAS BEEN AMBULATING TO THE BATHROOM W/ WALKER AND STANDBY ASSIST, CORDELIA WELL, DIARRHEA HAS DECREASED THIS AFTERNOON, DSG CHANGED THIS AFTERNOON, PT DC'D HOME, DC INSTRUCTIONS GIVEN TO MOM OVER THE PHONE W/ PT CONSENT AND TO PT, PT ACCOMPANIED BY BROTHER, VERBALIZED UNDERSTANDING, [facility] TO CONTACT PT W/ PCP APPT PER CARE MANAGEMENT, WOUND CARE REFERRAL SENT TO THE WOUND CLINIC.
== END 2022-06-13 18:30 | disposition home or self-care (01) | DRG 603 ==
LOC: ER 12:32 → SURS 15:55
PROVIDERS: Emergency Medicine; Family Medicine; Student in an Organized Health Care Education/Training Program; Surgery; ADMIT Internal Medicine
PROC: 0J9C0ZZ Drainage of Pelvic Region Subcutaneous Tissue and Fascia, Open Approach (ICD-10-PCS; 2022-06-07)
PROC: 0J9M0ZZ Drainage of Left Upper Leg Subcutaneous Tissue and Fascia, Open Approach (ICD-10-PCS; principal; 2022-06-07 14:00)
PROC: 0J990ZZ Drainage of Buttock Subcutaneous Tissue and Fascia, Open Approach (ICD-10-PCS; 2022-06-07 14:00)
DX: L02.214 Cutaneous abscess of groin (principal); E87.1 Hypo-osmolality and hyponatremia; L02.416 Cutaneous abscess of left lower limb; L02.31 Cutaneous abscess of buttock; N17.9 Acute kidney failure, unspecified; L03.314 Cellulitis of groin; I10 Essential (primary) hypertension; E78.5 Hyperlipidemia, unspecified; E11.42 Type 2 diabetes mellitus with diabetic polyneuropathy; F17.220 Nicotine dependence, chewing tobacco, uncomplicated; E11.65 Type 2 diabetes mellitus with hyperglycemia; F12.10 Cannabis abuse, uncomplicated; E87.6 Hypokalemia; D75.839 Thrombocytosis, unspecified; D64.9 Anemia, unspecified; E88.09 Other disorders of plasma-protein metabolism, not elsewhere classified; B95.61 Methicillin susceptible Staphylococcus aureus infection as the cause of diseases classified elsewhere; Z20.822 Contact with and (suspected) exposure to COVID-19; I25.2 Old myocardial infarction; Z79.899 Other long term (current) drug therapy; Z79.811 Long term (current) use of aromatase inhibitors; Z79.02 Long term (current) use of antithrombotics/antiplatelets; Z79.82 Long term (current) use of aspirin; Z79.84 Long term (current) use of oral hypoglycemic drugs; Z79.2 Long term (current) use of antibiotics; Z98.890 Other specified postprocedural states
CPT/HCPCS: 0241U; 36415; 72193; 80048; 80053; 80069; 80202; 82947; 83036; 83735; 83880; 85025; 87070; 87075; 87077; 87186; 87205; 96374-59; 96375; 99285-25; A9270; J0360; J0690; J0692; J1100; J1815; J1885; J2250; J2405; J2543; J2704; J3010; J3370; J3480; J7030; J7050; J7120; Q9967

== ENCOUNTER 2023-05-21 01:43 | Inpatient (IN) | payer OTHER ==
[2023-05-21] VITALS (32 sets, daily range): BP systolic 119–189; BP diastolic 81–111
[~2023-05-21] VITALS: Ht 180.3 cm; Wt 96.5 kg
[~2023-05-21 01:43] MED LIST changes: +BASAGLAR K100 UNIT/1 SC
[2023-05-21 03:00] LABS: BASOPHILS ABSOLUTE AUTO 0.06 K/mm3 (0.00-0.23); BASOPHILS PERCENT AUTO 0 % (0-2); EOSINOPHILS ABSOLUTE AUTO 0.03 K/mm3 (0.00-0.68); EOSINOPHILS PERCENT AUTO 0 % (0-6); Hematocrit 43.5 % (37.0-53.0); Hemoglobin 14.4 g/dL (13.5-17.5); IMMATURE GRAN ABSOLUTE AUTO 0.17 K/mm3 (0.00-0.10); IMMATURE GRAN PERCENT AUTO 1 % (0-1); LYMPHOCYTES ABSOLUTE AUTO 0.27 K/mm3 (0.84-5.20); LYMPHOCYTES PERCENT AUTO 1 % (21-46); MONOCYTES ABSOLUTE AUTO 1.56 K/mm3 (0.16-1.47); MONOCYTES PERCENT AUTO 8 % (4-13); Mean Corpuscular HGB 26.8 pg (26.0-34.0); Mean Corpuscular HGB Conc 33.1 g/dL (31.5-36.5); Mean Corpuscular Volume 81 fL (80-100); Mean Platelet Volume 10.5 fL (9.1-12.4); NEUTROPHILS ABSOLUTE AUTO 17.52 K/mm3 (1.96-9.15); NEUTROPHILS PERCENT AUTO 89 % (41-73); Platelet Count 352 K/mm3 (150-400); RDW Coefficient Variation 13.6 % (11.7-14.2); RDW Standard Deviation 40.1 fL (35.1-46.3); Red Blood Cell Count 5.37 M/mm3 (4.30-5.90); White Blood Cell Count 19.61 K/mm3 (4.00-11.30)
[2023-05-21 03:50] LABS: Alanine Aminotransfer (ALT/SGP 13 U/L (12-78); Albumin, Blood 2.3 g/dL (3.4-5.0); Albumin/Globulin Ratio 0.4 (0.8-1.8); Alk Phos 158 U/L (50-136); Anion Gap 16 mmol/L (6-16); Aspartate Aminotrans (AST/SGOT 9 U/L (12-37); Bilirubin, Total 1.1 mg/dL (0.1-1.0); Blood Urea Nitrogen 23 mg/dL (8-24); Bun/Creatinine Ratio 24.2 (12.0-20.0); C-Reactive Protein, High Sens. >190.000 mg/L (0.000-3.000); CO2, Blood 20 mmol/L (21-32); Calcium, Blood 9.4 mg/dL (8.5-10.1); Chloride, Blood 90 mmol/L (98-108); Creatinine, Blood 0.95 mg/dL (0.60-1.20); Globulin, Blood 5.4 g/dL (2.2-4.0); Glomerular Filtration Rate 91 (60-); Glucose, Blood 431 mg/dL (70-99); Potassium, Blood 3.8 mmol/L (3.5-5.5); Sodium, Blood 126 mmol/L (136-145); Total Protein, Blood 7.7 g/dL (6.4-8.2)
[2023-05-21 07:58] LABS: Glucose, Blood 442 mg/dL (70-99)
[2023-05-21 16:54] LABS: Anti-Xa UFH, PHA Monitoring <0.10 IU/mL; International Normalized Ratio 1.17; Prothrombin Time Results 12.2 Sec (9.7-11.5)
--- NOTE | 2023-05-21 18:45 | NUR ---
Summary. Pt arrived to ICU at 0845, report received from HISTOPATH TECH. Pt alert and oriented, on RA. R/leg has large blood blister and diabetic ulcer on bottom of foot, area red/inflammed with red streaking running up foot and inside of calf/thigh. CT w/contrast and MRI completed this shift. Venous Duplex of R/leg completed. Dr. Mari at bedside this afternoon to evaluate pt. Pt tired/sleeping much of shift. Able to move own weight independently, bed controls and call light within reach all shift. Pt voiding using urinal w/out difficulty. See chart for further details, will continue to monitor and report off to nightshift RN.
--- NOTE | 2023-05-21 20:00 | NUR ---
update family this rn talked to the patients wellingtondi taylor. wellingtonece called wanting and update, and per patient okay to give update. while on the phone with claudia, she mentioned that the living environment the patient will not be able to return to due to the mortage being reversed and payments haven't been made. claudia stated that the lety and his brother live in their moms house, who passed recently. this rn listened to claudia concerns and informed her that the information would be passed along. will inform day shift RN when giving report.
[2023-05-22 01:01] VITALS: BP 110/73
[2023-05-22 01:11] LABS: Hematocrit 37.6 % (37.0-53.0); Hemoglobin 12.7 g/dL (13.5-17.5); Mean Corpuscular HGB 26.9 pg (26.0-34.0); Mean Corpuscular HGB Conc 33.8 g/dL (31.5-36.5); Mean Corpuscular Volume 80 fL (80-100); Mean Platelet Volume 10.7 fL (9.1-12.4); Platelet Count 308 K/mm3 (150-400); RDW Coefficient Variation 13.7 % (11.7-14.2); RDW Standard Deviation 39.9 fL (35.1-46.3); Red Blood Cell Count 4.72 M/mm3 (4.30-5.90); White Blood Cell Count 18.27 K/mm3 (4.00-11.30)
[2023-05-22 01:40] LABS: Albumin, Blood 1.7 g/dL (3.4-5.0); Albumin/Globulin Ratio 0.4 (0.8-1.8); Bilirubin, Total 0.4 mg/dL (0.1-1.0); Bun/Creatinine Ratio 29.7 (12.0-20.0); Calcium, Blood 8.4 mg/dL (8.5-10.1); Creatinine, Blood 0.91 mg/dL (0.60-1.20); Globulin, Blood 4.5 g/dL (2.2-4.0); Potassium, Blood 3.3 mmol/L (3.5-5.5); Total Protein, Blood 6.2 g/dL (6.4-8.2)
[2023-05-22 01:55] LABS: BAND PERCENT MAN 15 % (0-8); BASOPHILS PERCENT MAN 0 % (0-2); EOSINOPHILS PERCENT MAN 0 % (0-6); LYMPHOCYTES ABSOLUTE MAN 0.73 K/mm3 (0.84-5.20); LYMPHOCYTES PERCENT MAN 4 % (21-46); MONOCYTES ABSOLUTE MAN 1.46 K/mm3 (0.16-1.47); MONOCYTES PERCENT MAN 8 % (4-13); NEUTROPHILS ABSOLUTE MAN 16.07 K/mm3 (1.96-9.15); SEG NEUTROPHILS PERCENT MAN 73 % (41-73); TOTAL CELLS COUNTED 100
[2023-05-22 03:56] VITALS: BP 110/79
--- NOTE | 2023-05-22 04:41 | NUR ---
shift summary this rn assumed care at 1900. vital signs stable and have remained stable throughout the shift. pcu status. tele sr. patient is alert and oriented x4. neuro is intact. patient has a flat affect and is withdrawn. patient reports no chest pain/pressure, shortness of breath, or pain. see shift assessment for further detials. patient uses urinal indepdently. patient as heparin infusing at 20u/kg/hr. see emar. plan of care is up to date. no acute changes. call light within reach and bed in lowest position.
--- NOTE | 2023-05-22 10:33 | NUR ---
ASSUMPTION OF CARE BEDSIDE SHIFT REPORT RECEIVED FROM NOC RN. PT RESTING IN BED, ALERT AND ORIENTED. PT ANSWERS MOST QUESTIONS APPROPRIATELY AND IS ABLE TO MAKE HIS NEEDS KNOWN. PT AFFECT FLAT, AND WITHDRAWN. HR 70-80'S NSR, MAP >65. PT ON RA, OXYGEN SATURATION >95%, PT DENIES SOB OR CP. PT USES URINAL TO VOID, ATTENDS IN PLACE. PIV TO RIGHT FOREARM AND LEFT FOREARM SL. PT HAS LARGE BLISTER TO RIGHT FOOT, ULCER ALSO PRESENT, RED STREAKING PRESENT THAT GOES UP THE RIGHT EXTREMITY TO THE GROIN. BED IN LOWEST POSITION, CALL LIGHT WITHIN REACH. CARE CONTINUES.
--- NOTE | 2023-05-22 12:27 | NUR ---
PT UPDATE THIS RN BROUGHT THE PTS LUNCH TRAY IN, UPON OFFERING THE TRAY THE PT DECLINED AND STATED "I TOLD MY BROTHER THAT I CAME HERE TO SO THATS WHAT I'M GOING TO DO". PT DENIES HAVING A PLAN OR THOUGHTS OF KILLING OR HARMING HIMSELF. PT STATED HE JUST DOESNT HAVE THE DESIRE TO CONTINUE LIVING. CHARGE NURSE AWARE. PALLIATIVE CARE CONSULTED.
[2023-05-22] MEDS ORDERED: ACET500 PO (13:21)
--- NOTE | 2023-05-22 14:48 | NUR ---
Palliative Care called to pt's room this am by the bedside RN. She states the pt has been making comments about wanting to . Attempted to assess pt, and he immediately closed his eyes and crossed his arms. He answered mostly the questions requiring only yes or no answers, and otherwise remained mostly silent. He did state he "didn't want to come here",that he "only came to the hospital to ". Bedside RN states he refused both breakfast and lunch trays today. He also stated he has no interests left in life since his parents and aunts and uncles . I did speak to his brother Feliciano who acts in a caregiver capacity towards the patient, and reports pt stopped checking blood sugars, stopped getting up off the couch, even began soiling himself sometime ago. Feliciano also reports the patient worked at a [employer] for many years up until 2019, when he was abruptly fired from his job, and began getting into trouble with local police officers. Requested Mental Health evaluation for this patient, discussed with GREASE PACKER. Palliative Care will continue to follow. Palliative Care will remain involved.
[2023-05-22 16:36] VITALS: BP 116/81
--- NOTE | 2023-05-22 16:52 | NUR ---
SHIFT SUMMARY PT ALERT AND ORIENTED X4, ABLE TO MAKE NEEDS KNOWN. HR NSR 70-80'S, MAP >65. PT ON RA, OXYGEN SATURATION >95%. PIV TO RAC AND LAC SL. PT USES URINAL TO VOID. NO BM THIS SHIFT. REPORT CALLED TO SURGICAL FLOOR RN. PT TRANSFERED TO SURGICAL FLOOR ROOM 227 VIA HOSPITAL BED WITH BELONGINGS.
--- NOTE | 2023-05-22 19:18 | NUR ---
TRANFER TO 227 PT ARRIVED FROM ICU IN HIS BED, TRANSFERRED TO NEW BED WITH LIFT SHEET, FOLLOWS, INSTRUCTIONS BUT DID NOT SAY ANYTHING TO STAFF, COOPERATING WITH CARE/MEDICATIONS BUT REFUSING PO, CONFIRMED DINNER INSULIN GIVEN MY EQUIPMENT SUPERINTENDENT BUT WAS NOT CHARTED. PT RESTING COMFORTABLY WITH CALL LIGHT IN REACH.
[2023-05-22 19:45] VITALS: BP 132/82
[2023-05-23 04:43] VITALS: BP 143/83
--- NOTE | 2023-05-23 05:53 | NUR ---
SHIFT SUMMARY PT IS HERE FOR AN ULCERATION/INFX OF HIS RIGHT FOOT. PT WAS TRANSFERRED FROM ICU YESTERDAY (05/22/23) AROUND SHIFT CHANGE (1900). PT HAS HAD MINIMAL INTERACTIONS WITH STAFF. PT HAS USED THE URINAL APPROPRIATELY THROUGHOUT THE SHIFT AND HIS VITAL SIGNS HAVE BEEN STABLE. NO ACUTE EVENTS OVERNIGHT. BED IS IN LOWEST POSITION, CALL LIGHT IS WITHIN REACH.
[2023-05-23 06:02] LABS: Hematocrit 34.9 % (37.0-53.0); Hemoglobin 11.6 g/dL (13.5-17.5); Mean Corpuscular HGB 26.7 pg (26.0-34.0); Mean Corpuscular HGB Conc 33.2 g/dL (31.5-36.5); Mean Corpuscular Volume 80 fL (80-100); Mean Platelet Volume 10.8 fL (9.1-12.4); Platelet Count 326 K/mm3 (150-400); RDW Coefficient Variation 14.3 % (11.7-14.2); RDW Standard Deviation 41.6 fL (35.1-46.3); Red Blood Cell Count 4.34 M/mm3 (4.30-5.90); White Blood Cell Count 18.75 K/mm3 (4.00-11.30)
[2023-05-23 06:25] LABS: Albumin, Blood 1.7 g/dL (3.4-5.0); Anion Gap 11 mmol/L (6-16); Blood Urea Nitrogen 23 mg/dL (8-24); Bun/Creatinine Ratio 28.6 (12.0-20.0); CO2, Blood 20 mmol/L (21-32); Calcium, Blood 8.4 mg/dL (8.5-10.1); Chloride, Blood 105 mmol/L (98-108); Glomerular Filtration Rate 101 (60-); Glucose, Blood 237 mg/dL (70-99); Phosphorus, Blood 2.1 mg/dL (2.5-4.9); Potassium, Blood 3.4 mmol/L (3.5-5.5); Sodium, Blood 136 mmol/L (136-145)
[2023-05-23 07:25] VITALS: BP 132/83
[2023-05-23 08:58] LABS: BAND PERCENT MAN 9 % (0-8); BASOPHILS PERCENT MAN 0 % (0-2); EOSINOPHILS PERCENT MAN 0 % (0-6); LYMPHOCYTES ABSOLUTE MAN 0.37 K/mm3 (0.84-5.20); LYMPHOCYTES PERCENT MAN 2 % (21-46); MONOCYTES ABSOLUTE MAN 1.12 K/mm3 (0.16-1.47); MONOCYTES PERCENT MAN 6 % (4-13); NEUTROPHILS ABSOLUTE MAN 17.25 K/mm3 (1.96-9.15); SEG NEUTROPHILS PERCENT MAN 83 % (41-73); TOTAL CELLS COUNTED 100
[2023-05-23 15:41] VITALS: BP 138/90
[2023-05-23 15:42] VITALS: BP 138/88
--- NOTE | 2023-05-23 19:22 | NUR ---
SHIFT SUMMARY S/P R FOOT BLISTER, A/OX4 BUT WITH FLAT AFFECT AND VWRY WITHDRAWN, HE DOES RESPOND TO QUESTIONS BUT HIS RESPONSES ARE MINIMAL AND INTERMITTENT, HE HAS BEEN REFUSING CARE T/O THE SHIFT WITH PO FOOD/DRINK/MEDS, HE WAS RESISTANT AT TAKING HIS INSULING TODAY FOR LUNCH BUT EVENTUALLY WAS RECEPTIVE TO TAKING IT, IV ABX INFUSED HE HAS NOT REFUSED ANY OF THEM, DENIES PAIN, REFUSED REPOSITIONING AND JUST WANTED TO SLEEP TODAY. NO ACUTE EVENTS THIS SHIFT, CALL LIGHT IN REACH.
[2023-05-23 20:13] VITALS: BP 138/87
--- NOTE | 2023-05-24 04:46 | NUR ---
SHIFT SUMMARY VSS. PT SLEPT THROUGHOUT MOST OF THE NIGHT. PT C/O PAIN T/O THE NIGHT BUT WAS UNWILLING TO TAKE MEDICATION MORE THAN ONCE. PT OFFERED MANY NONPHARMACOLOGICAL METHODS, BUT DECLINED ALL. WHILE AWAKE THE PT WAS MINIMALLY COOPERATIVE WITH CARE. HAS BEEN NPO SINCE 0000 IN ANTICIPATION OF POSSIBLE PROCEEDURE ON THE RLE. NO ACUTE EVENTS NOTED T/O THE NIGHT.
[2023-05-24 05:07] VITALS: BP 144/89
[2023-05-24 06:41] LABS: Hematocrit 35.9 % (37.0-53.0); Hemoglobin 12.3 g/dL (13.5-17.5); Mean Corpuscular HGB 27.5 pg (26.0-34.0); Mean Corpuscular HGB Conc 34.3 g/dL (31.5-36.5); Mean Corpuscular Volume 80 fL (80-100); Mean Platelet Volume 10.7 fL (9.1-12.4); Platelet Count 328 K/mm3 (150-400); RDW Coefficient Variation 14.2 % (11.7-14.2); RDW Standard Deviation 41.4 fL (35.1-46.3); Red Blood Cell Count 4.48 M/mm3 (4.30-5.90); White Blood Cell Count 16.39 K/mm3 (4.00-11.30)
[2023-05-24 07:15] LABS: Albumin, Blood 1.6 g/dL (3.4-5.0); Albumin/Globulin Ratio 0.3 (0.8-1.8); Bilirubin, Total 0.6 mg/dL (0.1-1.0); Bun/Creatinine Ratio 20.7 (12.0-20.0); Calcium, Blood 8.3 mg/dL (8.5-10.1); Creatinine, Blood 0.72 mg/dL (0.60-1.20); Globulin, Blood 4.7 g/dL (2.2-4.0); Phosphorus, Blood 2.7 mg/dL (2.5-4.9); Potassium, Blood 3.2 mmol/L (3.5-5.5); Total Protein, Blood 6.3 g/dL (6.4-8.2)
[2023-05-24 07:38] VITALS: BP 149/91
--- NOTE | 2023-05-24 16:04 | NUR ---
PT TO PRE OP SENT 1600 PENCILLIN WITH RN. PT WENT IN BED.
--- NOTE | 2023-05-24 16:19 | NUR ---
PT BROUGHT TO [facility] IN BED. PT IS ALERT AND ORIENTED BUT NODS OFF BETWEEN QUESTONS. Pre-Op teaching done. Pt verbalizes understanding. History, Chart, Medications and Allergies reviewed before start of procedure.Patient confirms NPO status and agrees with scheduled surgery.
[2023-05-24 16:51] VITALS: BP 136/84
--- NOTE | 2023-05-24 16:53 | NUR ---
1615: PT REFUSING TO SIGN ANESTHESIA CONSENT W/DR MONROE. PT UNABLE/UNWILLING TO SAY IF HE WANTS TO HAVE SURGERY. DR. IRBY IN PROCEDURE AND UPDATED. DR. IRBY CANCELLING CASE AND WILL COME SEE PT AT A LATER TIME TO DISCUSS FURTHER POC. 1650 PT RETURNED TO 227 VIA BED.
--- NOTE | 2023-05-24 16:54 | NUR ---
PT BACK TO ROOM DID NOT HAVE SURGERY
--- NOTE | 2023-05-24 18:33 | NUR ---
SUMMARY DR IRBY IN AT SHIFT CHANGE THIS AM AND CHANGED PT'S DRESSING TO RLE. PLANNED FOR I&D THIS AFTERNOON. WHEN PT TAKEN BACK TO PRE OP, PT REFUSED TO PROCEED WITH SURGERY. PT WITHDRAWN. REFUSED REPOSITIONING T/O SHIFT. INITIALLY REFUSED PAIN MEDS THIS AM, BUT AGREED TO TAKE OXYCODONE MIDDAY PER ORDERS FOR PAIN. SLEPT OFF AND ON T/O AFTERNOON. ABX ADMINISTERED PER ORDERS. PT DECLINED DINNER TRAY. RESTING WITH EYES CLOSED AT THIS TIME. BREATHING E/U. CALL LIGHT IN REACH.
[2023-05-24 19:43] VITALS: BP 147/89
[2023-05-25 02:58] VITALS: BP 155/92
[2023-05-25 07:41] LABS: Hematocrit 35.9 % (37.0-53.0); Mean Corpuscular HGB 26.7 pg (26.0-34.0); Mean Corpuscular HGB Conc 33.4 g/dL (31.5-36.5); Mean Corpuscular Volume 80 fL (80-100); Mean Platelet Volume 10.1 fL (9.1-12.4); Platelet Count 365 K/mm3 (150-400); RDW Coefficient Variation 14.4 % (11.7-14.2); Red Blood Cell Count 4.49 M/mm3 (4.30-5.90); White Blood Cell Count 17.82 K/mm3 (4.00-11.30)
--- NOTE | 2023-05-25 07:44 | NUR ---
SHIFT SUMMARY NO ACUTE CHANGES THROUGH THE NIGHT, PT CONTINUES TO DECLINE THE NEED FOR CARE & PAIN MEDICATION, HE DID HOWEVER ALLOW THIS RN & [facility] TECH TO GIVE HIM A BEDBATH & CHANGE HIS LINEN. PT IS USING THE URINAL APPEARS TO BE SEMI INCONTINENT OF BOTH BOWEL/URINE, CHARLI CARE COMPLETED, BRIEF PLACED. PT TOOK ALL MEDICATIONS & ALLOWED ABX INFUSIONS. PT IS ON RA, VSS, PAIN MANAGED PER EMAR, DRSG TO RIGHT FOOT C/D/I, IN THIS AM TO SEE PT, HE CONTINUES TO REFUSE SURGERY. REPORT GIVEN TO DAY RN, CALL LIGHT IN REACH, RESP UNLABORED.
[2023-05-25 08:10] VITALS: BP 136/81
[2023-05-25 08:15] LABS: Bun/Creatinine Ratio 15.2 (12.0-20.0); Calcium, Blood 7.9 mg/dL (8.5-10.1); Creatinine, Blood 0.72 mg/dL (0.60-1.20)
[2023-05-25 14:39] VITALS: BP 129/80
--- NOTE | 2023-05-25 17:35 | NUR ---
SUMMARY NO ACUTE CHANGES T/O SHIFT. PT C/O OF PAIN BUT REFUSED PAIN MEDS TWICE WHEN BROUGHT IN ROOM TO BE ADMINISTERED. PT DECLINED SURGERY WHEN DR IRBY SAW HIM THIS AM. DR IRBY PLANNING TO RETURN THIS EVENING TO DISCUSS SURGERY WITH PATIENT AGAIN. PT HAS HAD MINIMAL PO INTAKE, REFUSED SOME MEALS. REFUSED REPOSITIONING UNTIL THIS EVENING WHEN THIS RN INSISTED HE BE REPOSITIONED TO ATTEMPT TO AVOID SKIN BREAKDOWN. EDUCATED PT ON DANGERS OF LYING IN ONE POSITION. PLACED PILLOW UNDER R HIP. PT SLEPT OFF AND ON T/O DAY. WITHDRAWN. CALL LIGHT IN REACH.
[2023-05-25 19:59] VITALS: BP 141/86
[2023-05-26 03:16] VITALS: BP 151/85
--- NOTE | 2023-05-26 06:09 | NUR ---
SHIFT SUMMARY PT IS HERE AT THE HOSPITAL FOR [facility]PS[facility] AND A RIGHT FOOT INFX/CELLULITIS. PT IS TO BE SEEN BY DR. IRBY THIS AM TO SEE IF HE WILL ALLOW AN I&D OF HIS RIGHT FOOT (PT REFUSED THE PROCEDURE YESTERDAY). PT HAS BEEN NPO SINCE MIDNIGHT. VITAL SIGNS HAVE BEEN STABLE AND THE PT HAD NO ACUTE EVENTS OCCUR THIS SHIFT. BED IS IN LOWEST POSITION, CALL LIGHT IS WITHIN REACH.
[2023-05-26 06:25] LABS: BASOPHILS ABSOLUTE AUTO 0.04 K/mm3 (0.00-0.23); BASOPHILS PERCENT AUTO 0 % (0-2); EOSINOPHILS ABSOLUTE AUTO 0.16 K/mm3 (0.00-0.68); EOSINOPHILS PERCENT AUTO 1 % (0-6); Hematocrit 36.2 % (37.0-53.0); Hemoglobin 12.2 g/dL (13.5-17.5); IMMATURE GRAN ABSOLUTE AUTO 0.65 K/mm3 (0.00-0.10); IMMATURE GRAN PERCENT AUTO 4 % (0-1); LYMPHOCYTES ABSOLUTE AUTO 1.76 K/mm3 (0.84-5.20); LYMPHOCYTES PERCENT AUTO 10 % (21-46); MONOCYTES ABSOLUTE AUTO 1.21 K/mm3 (0.16-1.47); MONOCYTES PERCENT AUTO 7 % (4-13); Mean Corpuscular HGB 26.9 pg (26.0-34.0); Mean Corpuscular HGB Conc 33.7 g/dL (31.5-36.5); Mean Corpuscular Volume 80 fL (80-100); Mean Platelet Volume 10.2 fL (9.1-12.4); NEUTROPHILS ABSOLUTE AUTO 13.47 K/mm3 (1.96-9.15); NEUTROPHILS PERCENT AUTO 78 % (41-73); Platelet Count 414 K/mm3 (150-400); RDW Coefficient Variation 14.4 % (11.7-14.2); RDW Standard Deviation 42.2 fL (35.1-46.3); Red Blood Cell Count 4.54 M/mm3 (4.30-5.90); White Blood Cell Count 17.29 K/mm3 (4.00-11.30)
[2023-05-26 07:03] LABS: Bun/Creatinine Ratio 11.2 (12.0-20.0); Creatinine, Blood 0.72 mg/dL (0.60-1.20); Potassium, Blood 3.4 mmol/L (3.5-5.5)
[2023-05-26 07:45] VITALS: BP 145/88
--- NOTE | 2023-05-26 08:38 | NUR ---
pt laying in bed with eyes closed, wakes easily, a/ox3, very odd, refusing some medications, states he doesn't want to eat, encouraged him to have a few bites as he has potassium this am, he agreed, attempted to move beg legs down so he could have his tray, but was too painful for him, offered a pain pill, he refused, states it wont do any good, attempted to talk with him about it, but he was adiment he didn't want it, lungs clear dim in bases, on r/a, no cough noted, hrr, voids via urinal, can be incont of stool, skin has dressing to right foot, markus, call light in reach.
[2023-05-26] MEDS ORDERED: AMOCLA875 PO (14:10)
[2023-05-26] MEDS ORDERED: INSULANPEN SC (14:10)
[2023-05-26] MEDS ORDERED: VISBIOME 112.51 EACH PO (14:10)
[2023-05-26] MEDS ORDERED: HUMALOG KW100 UNIT/1 SC (14:11)
--- NOTE | 2023-05-26 15:28 | NUR ---
pt has been discharged to home with home health, he states his brother manages his insulin at home, went through instructions, he said he understood, [facility], iv x2 removed intact. given extra dressing supplies for foot. left via wheelchair with transport in attendence.
== END 2023-05-26 15:38 | disposition home or self-care (01) | DRG 872 ==
LOC: ER 01:43 → ICUE 05:14 → ERHOLD 05:14 → SURS 05:14 → ICUE 08:43 → SURS 05-22 16:27
PROVIDERS: Emergency Medicine; Internal Medicine; Pharmacist; ADMIT Internal Medicine
DX: A40.0 Sepsis due to streptococcus, group A (principal); L03.115 Cellulitis of right lower limb; E87.1 Hypo-osmolality and hyponatremia; L97.419 Non-pressure chronic ulcer of right heel and midfoot with unspecified severity; R45.851 Suicidal ideations; F32.A Depression, unspecified; I10 Essential (primary) hypertension; I25.10 Atherosclerotic heart disease of native coronary artery without angina pectoris; E11.42 Type 2 diabetes mellitus with diabetic polyneuropathy; F17.220 Nicotine dependence, chewing tobacco, uncomplicated; E11.65 Type 2 diabetes mellitus with hyperglycemia; E78.5 Hyperlipidemia, unspecified; E11.621 Type 2 diabetes mellitus with foot ulcer; E66.9 Obesity, unspecified; Z68.34 Body mass index [BMI] 34.0-34.9, adult; M19.90 Unspecified osteoarthritis, unspecified site; G89.29 Other chronic pain; M54.9 Dorsalgia, unspecified; K21.9 Gastro-esophageal reflux disease without esophagitis; I25.2 Old myocardial infarction; Z79.82 Long term (current) use of aspirin; Z79.02 Long term (current) use of antithrombotics/antiplatelets; Z59.89 Other problems related to housing and economic circumstances; Z53.29 Procedure and treatment not carried out because of patient's decision for other reasons
CPT/HCPCS: 36415; 71045; 73630; 73701; 73718; 80048; 80053; 80069; 82947; 83036; 83605; 83880; 84100; 84484; 85025; 85027; 85379; 85520; 85610; 85651; 85730; 86141; 87040; 87070; 87147; 87205; 93005; 93010; 93926; 93971; 94644; 94664; 96365-59; 96367-59; 96375-59; 99285-25; A9270; J1644; J1650; J1815; J2270; J2405; J2540; J2543; J2704; J2930; J3010; J3370; J3480; J7030; J7050; J7120; P9047; Q9967

== ENCOUNTER 2023-06-01 02:23 | Observation (INO) | payer OTHER ==
[~2023-06-01] VITALS: Ht 180.3 cm; Wt 93.5 kg
[~2023-06-01 02:23] MED LIST changes: +ACET500 PO; +AMOCLA875 PO; +HUMALOG KW100 UNIT/1 SC; +INSULANPEN SC; +VISBIOME 112.51 EACH PO
[2023-06-01] MEDS ORDERED: Ampicillin Sod/Sulbactam Sod 3 GM in NS 100 ML IV ONE (02:55)
[2023-06-01] MEDS ORDERED: NS 1,000 ML IV SCH ×2 (03:00→13:00)
[2023-06-01 03:30] LABS: BASOPHILS ABSOLUTE AUTO 0.03 K/mm3 (0.00-0.23); BASOPHILS PERCENT AUTO 0 % (0-2); EOSINOPHILS ABSOLUTE AUTO 0.15 K/mm3 (0.00-0.68); EOSINOPHILS PERCENT AUTO 2 % (0-6); Hematocrit 37.1 % (37.0-53.0); Hemoglobin 12.4 g/dL (13.5-17.5); IMMATURE GRAN ABSOLUTE AUTO 0.12 K/mm3 (0.00-0.10); IMMATURE GRAN PERCENT AUTO 1 % (0-1); LYMPHOCYTES ABSOLUTE AUTO 1.53 K/mm3 (0.84-5.20); LYMPHOCYTES PERCENT AUTO 16 % (21-46); MONOCYTES ABSOLUTE AUTO 0.66 K/mm3 (0.16-1.47); MONOCYTES PERCENT AUTO 7 % (4-13); Mean Corpuscular HGB Conc 33.4 g/dL (31.5-36.5); Mean Corpuscular Volume 81 fL (80-100); Mean Platelet Volume 9.2 fL (9.1-12.4); NEUTROPHILS ABSOLUTE AUTO 7.36 K/mm3 (1.96-9.15); NEUTROPHILS PERCENT AUTO 75 % (41-73); Platelet Count 608 K/mm3 (150-400); RDW Coefficient Variation 13.6 % (11.7-14.2); RDW Standard Deviation 39.8 fL (35.1-46.3); White Blood Cell Count 9.85 K/mm3 (4.00-11.30)
[2023-06-01 03:54] LABS: Albumin, Blood 1.7 g/dL (3.4-5.0); Albumin/Globulin Ratio 0.3 (0.8-1.8); Bilirubin, Total 0.4 mg/dL (0.1-1.0); Bun/Creatinine Ratio 18.4 (12.0-20.0); Calcium, Blood 8.4 mg/dL (8.5-10.1); Creatinine, Blood 0.65 mg/dL (0.60-1.20); Globulin, Blood 6.4 g/dL (2.2-4.0); Potassium, Blood 3.9 mmol/L (3.5-5.5); Total Protein, Blood 8.1 g/dL (6.4-8.2)
[2023-06-01] MEDS ORDERED: Mag Hydrox/AL Hydrox/Simeth 30 ML UDC PO ONE (04:30)
[2023-06-01] MEDS ORDERED: FLU VACC QS2023-24(6MOS UP)/PF 60 MCG/0.5 ML SYRINGE IM SCH (12:25)
[2023-06-01] MEDS ORDERED: Acetaminophen 325 MG TABLET PO PRN (12:30)
[2023-06-01] MEDS ORDERED: Ampicillin Sod/Sulbactam Sod 3 GM in NS 100 ML IV SCH (12:45)
[2023-06-01 12:59] VITALS: BP 166/117
[2023-06-01] MEDS ORDERED: HydrALAZINE HCl 20 MG / ML 1ML Vial IV PRN (13:25)
[2023-06-01] MEDS ORDERED: DiphenhydrAMINE HCl 50 MG Cap PO ONE (15:45)
[2023-06-01 16:21] VITALS: BP 147/102
[2023-06-01] MEDS ORDERED: Insulin Regular 100 UNIT/ML 10ML Vial SC SCH ×2 (18:00→21:00)
--- NOTE | 2023-06-01 19:43 | NUR ---
SHIFT SUMMARY: MUNIR IS A&OX4. VS W/IMPROVING BP AND BLOOD SUGAR. PT IS A PATCHY HISTORIAN, UNABLE TO ANSWER QUESTIONS ABOUT PREVIOUS ADMISSION. PT STATES THAT HE LIVES WITH HIS BROTHER, BUT HAS NO CONTACT INFORMATION FOR HIM. UNCLEAR IF PT IS HAVING DIFFICULTIES LEARNING/RETAINING NEW INFORMATION. PT STATES THAT HE WAS NOT TAKING ANY MEDICATIONS AT HOME EXCEPT FOR TYLENOL. PT ALSO STATED THAT HE WAS SITTING IN [place] FOR FIVE DAYS AT HOME, BUT THAT HE DOES NOT USE ANY ASSISTIVE DEVICES TO AMBULATE. PT NWB ON RLE AT THIS TIME. HE IS USING THE URINAL WITHOUT DIFFICULTY, ATTENDS UNDERNEATH PT IF INCONTINENT. PT REFUSED PAIN MEDICATION PER SEP. CALLED HOSPITALIST AND REPORTED RASH AND REDNESS IN CHARLI AREA, ONE TIME ORDER FOR PO BENADRYL GIVEN. ORTHO CONSULT CALLED TO DR. HERNANDEZ. PT REFUSED DINNER. DISCUSSED THE IMPORTANCE OF BLOOD SUGAR CONTROL AND HEALING WITH PT, PT STATED HIS BLOOD SUGAR WAS "FINE" IN THE 200'S. PT IS LYING IN BED WITH THE CALL LIGHT IN REACH. REPORT WAS GIVEN TO DEVELOPMENT COORDINATOR RN.
[2023-06-01 20:24] VITALS: BP 148/94
[2023-06-01] MEDS ORDERED: Insulin Glargine-Yfgn 100 Unit/mL 3 ML SYR SC SCH (21:00)
[2023-06-01] MEDS ORDERED: Lactobacil 2-S.Thermo-Bifido 1 1 Cap PO SCH (21:00)
--- NOTE | 2023-06-02 04:53 | NUR ---
SHIFT SUMMARY MUNIR IS ALERT AND FULLY ORIENTED, BUT RESPONDS SLOWLY. PT DENIES PAIN EVERY TIME HE IS ASKED THIS SHIFT. NASAL MRSA SWAB COLLECTED AND SENT TO LAB. PT NPO FROM MIDNIGHT IN ANTICIPATION OF POTENTIAL BKA TOMORROW. NO ACUTE EVENTS TONIGHT. PT HAS RASHY SKIN ON PROXIMAL EXTREMETIES/ TRUNK. PT HAS NEED FOR EDUCATION REGARDING SURGERY. PT CURRENTLY RESTING IN BED IN A LOW POSITION WITH CALL LIGHT IN REACH.
[2023-06-02 05:26] VITALS: BP 154/87
[2023-06-02 06:42] LABS: Albumin, Blood 1.5 g/dL (3.4-5.0); Albumin/Globulin Ratio 0.3 (0.8-1.8); Bilirubin, Total 0.5 mg/dL (0.1-1.0); Bun/Creatinine Ratio 11.4 (12.0-20.0); Calcium, Blood 7.9 mg/dL (8.5-10.1); Creatinine, Blood 0.7 mg/dL (0.60-1.20); Globulin, Blood 5.4 g/dL (2.2-4.0); Potassium, Blood 3.5 mmol/L (3.5-5.5); Total Protein, Blood 6.9 g/dL (6.4-8.2)
[2023-06-02 07:17] LABS: BASOPHILS ABSOLUTE AUTO 0.04 K/mm3 (0.00-0.23); BASOPHILS PERCENT AUTO 1 % (0-2); EOSINOPHILS PERCENT AUTO 2 % (0-6); Hematocrit 32.6 % (37.0-53.0); Hemoglobin 10.6 g/dL (13.5-17.5); IMMATURE GRAN ABSOLUTE AUTO 0.07 K/mm3 (0.00-0.10); IMMATURE GRAN PERCENT AUTO 1 % (0-1); LYMPHOCYTES ABSOLUTE AUTO 1.53 K/mm3 (0.84-5.20); LYMPHOCYTES PERCENT AUTO 18 % (21-46); MONOCYTES ABSOLUTE AUTO 0.65 K/mm3 (0.16-1.47); MONOCYTES PERCENT AUTO 8 % (4-13); Mean Corpuscular HGB 26.7 pg (26.0-34.0); Mean Corpuscular HGB Conc 32.5 g/dL (31.5-36.5); Mean Corpuscular Volume 82 fL (80-100); Mean Platelet Volume 9.5 fL (9.1-12.4); NEUTROPHILS ABSOLUTE AUTO 5.85 K/mm3 (1.96-9.15); NEUTROPHILS PERCENT AUTO 70 % (41-73); Platelet Count 538 K/mm3 (150-400); RDW Coefficient Variation 13.4 % (11.7-14.2); RDW Standard Deviation 40.7 fL (35.1-46.3); Red Blood Cell Count 3.97 M/mm3 (4.30-5.90); White Blood Cell Count 8.34 K/mm3 (4.00-11.30)
[2023-06-02] MEDS ORDERED: DiphenhydrAMINE HCL 25 MG Cap PO PRN (07:30)
[2023-06-02 07:38] VITALS: BP 158/93
[2023-06-02] MEDS ORDERED: Triamcinolone Acet 0.5% Cream 15 gm TOP SCH (09:00)
[2023-06-02] MEDS ORDERED: CEPH500 PO (15:48)
[2023-06-02] MEDS ORDERED: PROBIOTIC1 EA14 PO (15:49)
--- NOTE | 2023-06-02 18:26 | NUR ---
Pt has agreed to comfort care. Dr. Douglas agrees to keep patient tonight, set up hospice prior to discharge. Pt will require a same day admission. Pt's reports leg pain at 8/10.
[2023-06-02] MEDS ORDERED: LORazepam 1 MG Tab PO PRN (18:35)
[2023-06-02] MEDS ORDERED: Morphine Sulfate 20 MG/1ML 1 ML Oral Syringe SL PRN (18:35)
--- NOTE | 2023-06-02 18:52 | NUR ---
Patient alert & oriented 2-3. Ortho surgeon consulted this morning, educated patient on plan of care, and the need for BKA. Patient responsed that he has heard this before. And stated "I don't want, surgery, I will with this leg". MD plan to discharge home with ABX. Palliative care RN met with patient & contacted family, patient agreeable to comfort care & to discharge home on hospice. Patient will not DC home tonight. Will continue plan of care, awaiting discharge planning.
--- NOTE | 2023-06-03 04:26 | NUR ---
SHIFT SUMMARY PATIENT ON COMFORT CARE. AXOX 2 AND BEDREST. FLAT AFFECT. DENIES CHEST PAIN, SOB, AND N/V. SLEPT MOST OF THE SHIFT. NO IV ACCESS. CALL LIGHT IN REACH. BED IN LOWEST POSITION. WILL CONTINUE TO MONITOR UNTIL DAY SHIFT NURSE ASSUMES CARE.
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
--- NOTE | 2023-06-03 17:28 | NUR ---
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 HE IS AWARE OF HIS CHOICE AND IS CHOOSING TO KEEP HIS LEG AND WISHES TO WITH HIS LEG. DISCHARGE HAS ALREADY BEEN COMPLETED OF YESTERDAY, BUT AWAITING WHERE [facility] (WORKING WITH NURSE TIMBER REPAIRER ON PLACEMENT) HE HAS REFUSED ALL CARE THAT I HAVE TRIED TO PROVIDE TODAY, EVEN COMFORT CARE MEDICATION; EVEN THOUGH HE STATES HE IS IN BED. EDUCATED PATIENT ON COMFORT CARE AND MEDICATIONS INVOLVED AND PATIENT CONTINUED TO DECLINE; STATING MORPHINE KILLED HIM PARENTS. AFTER PATIENT MADE THAT STATEMENT I ASKED HIM WHAT HIS GOAL WAS AND HIS RESPONSE WAS " I HAVE NO GOALS." PATIENT REQUEST TO SLEEP. CONTINUED TO CHECK IN ON PATIENT THROUGHOUT THE SHIFT TO SEE IF PATIENT'S AQUITY FOR NEED OF CARE CHANGED. HE REMAINS IN BED, SLEEPING, RESPIRATIONS EVEN AND UNLABORED, CALL LIGHT WITHIN REACH; PATIENT REMINDED HOW TO OPERATE CALL LIGHT WITH EXITING ROOM. PATIENT DID NOT USE CALL LIGHT DURING SHIFT. PLAN OF CARE ONGOING. POSSIBLE DISCHARGE TOMORROW; DEPENDING ON PLACEMENT.
--- NOTE | 2023-06-04 04:25 | NUR ---
SHIFT SUMMARY PATIENT HAD NO ACUTE CHANGES. AXOX 2-3 AND BEDREST. ON COMFORT CARE. NO IV ACCESS. DENIES CHEST PAIN, SOB, AND N/V. REFUSED PO MEDICATION. SLEPT MOST OF THE SHIFT. CALL LIGHT IN REACH. BED IN LOWEST POSITION. WILL CONTINUE TO MONITOR UNTIL DAY SHIFT NURSE ASSUMES CARE.
--- NOTE | 2023-06-04 16:37 | NUR ---
pt resting been refusing care review of medications with nursing.
--- NOTE | 2023-06-04 18:04 | NUR ---
SHIFT SUMMARY: PT IS A 62 YEAR OLD MALE HERE ON COMFORT CARE AFTER DECLINING TO MOVE FORWARD TO AMPUTATION OF HIS RIGHT LOWER EXTREMITY. HE IS AWAITING PLAN FOR DISCHARGE FOR PLACEMENT. HE HAS REFUSED MOST CARE WITH THE EXCEPTION OF A ONE TIME ADMINISTERATION OF ROXANOL, HIS PROBIOTIC, AND APPLIED TRIAMCINOLONE TODAY. HE REMAINS IN BED, CALL LIGHT WITHIN REACH ( HASN'T USED)-REORIENTS ON HOW TO USE CALL LIGHT EACH TIME EXITING ROOM. SEE OTHER NURSE NOTES FOR OTHER UPDATES THROUGHOUT THE SHIFT. RESPIRATIONS EQUAL AND UNLABORED. PLAN OF CARE ONGOING.
--- NOTE | 2023-06-04 19:02 | NUR ---
AT SHIFT CHANGE PATIENT COMPLAINING OF HIS BACK ITCHING. HIVES PRESENT TRIAMCINOLONE APPLIED TO RASH AND BENADRYL GIVEN ALONG WITH ATIVAN AND ROXANL PATIENT WAS WILLING AND COOPERATIVE OF CARE/TREATMENT
--- NOTE | 2023-06-05 04:49 | NUR ---
SHIFT SUMMARY 62 YR M ADMITTED ON 06/01/23. COMFORT CARE. PT HAS SLEPT FOR THIS ENTIRE SHIFT. HE DID NOT WANT TO WAKE UP FOR EVENING MEDS SO THEY HAVE BEEN RETURNED TO THE [facility]. NO ACUTE CHANGES THIS SHIFT.
--- NOTE | 2023-06-05 13:10 | NUR ---
Attempted to visit with Pt. Pt resting in bed with his eyes closed. Pt remains with his eyes closed with moderate level of verbal stimuli. No S/S of distress at this time. Spoke with Primary RN Jean Marie and discussed case. Pt wanting to sleep today, no new concerns at this time. Palliative Care will remain available
--- NOTE | 2023-06-05 15:53 | NUR ---
SHIFT SUMMARY: PATIENT HAD NO NEW ACUTE CHANGES IN CONDITION THIS SHIFT. PATIENT ON COMFORT CARE. RECEIVED ONE DOSE OF ROXANOL THIS SHIFT. PATIENT IS ALERT TO SELF AND PLACED. PATIENT HAS BEEN SLEEPING FOR THE MOST PART OF THIS SHIFT. RESPOND TO VERBAL STIMULI, RR IS EVEN AND UNLABORED. PER PATIENT "I JUST WANT TO SLEEP TODAY." REFUSED BREAKFAST AND LUNCH. PATIENT IS CONTINENCE OF BLADDER AND USES URINAL IN BED INDEPNDENTLY. DRESSING TO R FOOT C/D/I. BED ALARM ON FOR SAFETY. CALL LIGHT IN REACH.
--- NOTE | 2023-06-06 04:54 | NUR ---
SHIFT SUMMARY 62 YR M ADMITTED SINCE 06/01/23. COMFORT CARE. NO ACUTE CHANGES THIS SHIFT. PT C/O HIS BACK ITCHING AND HAD CREAM/OINTMENT APPLIED TWICE THIS SHIFT. OTHER THAN THAT HE HAS SLEPT THROUGH THIS SHIFT AND HAS HAD NO REQUESTS FOR ANYTHING. HE DID NOT WANT TO WAKE FOR 2100 MEDS.
[2023-06-06 07:13] VITALS: BP 149/88
--- NOTE | 2023-06-06 09:27 | NUR ---
Attempted to visit with Pt this AM. Just like yesterday morning, Pt does not respond to this RN and remains with his eyes closed. Unsure if he is deeply resting or just not interested in engaging. Spoke with Primary RN Gorge and discussed case. Gorge reports Pt was complaining of pain just prior to this RN's visit and will offer pain medication. Palliative Care will remain available
[2023-06-06] MEDS ORDERED: Morphine Sulfate 20 MG/1ML 1 ML Oral Syringe SL PRN (09:30)
--- NOTE | 2023-06-06 19:35 | NUR ---
SHIFT SUMMARY PT DOES NOT ENGAGE IN CONVERSATION. DIFFICULT TO ASSESS MENTATION. PT REFUSED ALL MEDIATIONS INCLUDING PAIN MEDICATIONS. PT DID ASK DURING THE MORNING ASSESSMENT WHY HIS FOOT HURT. THIS NURSE EXPLAINED HE HAD AN INFECTION. PAIN MADICATIONS WERE BROUGHT IN AND THIS NURSE ATTEMPTED TO ADMINISTER AFTER ASSESSMENT PT PT REFUSED AND STATED HE WANTED TO SLEEP. PT CONTINUED TO REFUSE ALL OFFERS OF PAIN MEDICATIONS T/O DAY. PT ATE AND DRANK VERY LITTLE. OFFERED PT DIFFERENT FOOD AND DRINK OPTIONS BUT PT CONTINUED TO STATE HE JUST WANTED TO SLEEP. URINE IS VERY CONSINTRATED. PT USES URINAL IND. BED IN LOWEST POSITION AND CALL LIGHT IN REACH.
--- NOTE | 2023-06-07 10:27 | NUR ---
Case review facilitated. Medical history, social matrix, and prognostic indicators discussed with Dr Douglas. The principal is a 62 y/o gentlemen with a treatable condition that requires surgical remediation. He verbalizes that he is unreceptive to having the recommended procedure i.e. BKA, and consistently refuses all other forms of clinical intervention e.g. antibiotic therapy, dressing changes, debridement, alalgesics etc. It is reported that he has not been amenable to a cognitive evaluation. His recall performance is low, but he is able to communicate his choices cohesively, and according to the orthopedist he appears to comprehend the benefits of ongoing care, and the risks associated with forgoing it. While his judgement seems questionable when benchmarked against normal standards, this alone does not sufficiently or necessarily indicate that he is non-decisional. If his mentation is intact, it is his right and privilege to refuse treatments that do not align with his value laden preferences. If he has deemed that his quality of life would be diminished by the loss of a limb to the extent that would be a more reasonable option, then his autonomy of choice should be honored. If however, we suspect that his mentation is grossly impaired, then we should pursue a guardianship arrangement. I made a formal recommendation to Dr Douglas to have our psychiatric nurse practioner engage in further assesment. Perhaps by leveraging this resource, we can get a better sense of his capacity status, and maybe even ascertain what the unvoiced or underlying predicates to his treatment disinterest are. Conceptually, you could discharge the patient home with a hospice election, but given the complexities identified by the care coordination office e.g. an unsuitable domicile and a lack of family assistance, this does not appear to be feasible or safe. If he is found to be decisional, and he is elegible to be dispositioned to a hospice care unit, then this may constitute a logical path forward, assuming that his medical diagnosis meets the required threshold, and he has the appropriate insurance benefits. Thank you for this consult. Bhavesh Cardenas ThD, PAMELA
--- NOTE | 2023-06-07 17:16 | NUR ---
SHIFT SUMMARY PATIENT CONTINUES TO BE ON COMFORT CARE. PATIENT SLEEPING MOST OF THE TIIME. PATIENT WILL AROUSE AND ANSWER A FEW QUESTIONS. PATIENT EASILY AGITATED AND STATES THAT HE WISHES PEOPLE WOULD JUST LEAVE HIM ALONE. PATIENT REFUSING ANY MEDICATIONS INCLUDING PAIN MEDICATION. PATIENT TELLING PROVIDERS HE DOESNT CARE IF HE DIES. PATIENT STATING IF HE HAD A GUN HE WOULD JUST SHOOT HIMSELF AND GET IT OVERWITH. PATIENT STATES THAT HE DOESNT CARE IF THEY CUT HIS FOOT OFF AND THEN HE CAN JUST BLEED TO . PATIENT REFUSING TO EAT BECAUSE HE DOESNT HAVE A WAY TO GET UP TO THE BATHROOM AND REFUSES TO TRY TO USE A COMMODE. PATIENT WILLING TO DRINK SOME WATER. DRESSING REMOVED FROM R FOOT. NEW DRESSING APPLIED. PATIENT CONTINUES TO BE EASILY AGITATED WHEN ATTEMPTING TO PROVIDE ANY CARE. PATIENT VERBALLY EXPRESSING FRUSTRATION AND REPEATEDLY STATING HE WISHED EVERYONE WOULD LEAVE HIM ALONE AND LET HIM .
--- NOTE | 2023-06-07 17:59 | NUR ---
Pt withdrawn and struggling with interaction. Mostly says no or expresses wanting to . Pt looks more fatigued and anil. review of pt with Tunnel Elastic Operator Chainstitch for review of his abilities. Will follow up after assessment for plan of care and contacts.
[2023-06-07] MEDS ORDERED: Ampicillin Sod/Sulbactam Sod 3 GM in NS 100 ML IV SCH (18:00)
--- NOTE | 2023-06-07 22:08 | NUR ---
BEDSIDE REPORT DONE WITH JIMMY RN, SHE NOTIFIED PT THAT WE WERE GOING TO COVER HIS WOUND, PT AT FIRST SAID NO BUT DID ALLOW US TO APPLY BANDAGE- URINAL AT BEDSIDE WITH 400ML DARK DONNY URINE DUMPED -SPOKE WITH PT RE: STARTING IV FOR ABX AND PT STATED " NO MEDICATIONS DO NOT WORK" INFORMED PT THAT THIS RN WOULD COME BACK AND DISCUSS IN MORE DETAIL 1999 PT REFUSED ASSESSMENT, CONTINUES TO DENY ALLOWING IV STARTED, " HE STATED IF HE HAD A GUN HE WOULD JUST SHOOT OFF HIS LEG" ENCOURAGED PT TO THINK ABOUT ALLOWING IV ABX, PT STATED NO- PT DID ALLOW THIS RN TO BRING HIM FRESH ICE WATER - PT PRETENDED TO BE SLEEPING WHEN RETURNING WITH THE WATER- REMINDED PT THAT I'M RIGHT OUTSIDE HIS DOOR AND IF HE CHANGES HIS MIND ON FOOD, DRINK, OR MEDICATIONS TO PLEASE GIVE A CALL- BED LOW POSITION, CALL LIGHT WITHIN REACH
--- NOTE | 2023-06-08 04:34 | NUR ---
SHIFT SUMMARY PT REFUSED ALL CARE T/O SHIFT, PT AGREED TO A GLASS OF ICE WATER AND WARM BLANKETS T/P NIGHT, PT USED THE URINAL TWICE- PT ANSWERED NO TO ALL OTHER QUESTIONS, PT SLEEPING IN OWN CLOTHES- ASKED PT IF HE WOULD CONSIDER ALLOWING ANTIBIOTICS - HE STATED, "MEDICATIONS DO NOT WORK"- SPOKE WITH PT AND REQUESTED TO LET ME KNOW IF HE CHANGES HIS MIND. PATIENT DIDN'T ANSWER JUST CLOSED HIS EYES AND STOPPED TALKING TO THIS RN- BED LOW POSITION, CALL LIGHT WITHIN REACH
--- NOTE | 2023-06-08 07:55 | NUR ---
Case update. The decisional capacity assessments provided by the behavioral medicine team are much appreciated. The care coordination office will initiate the guardianship process per psychiatrys recommendation. Bhavesh Cardenas, PhD, PAMELA
--- NOTE | 2023-06-08 16:37 | NUR ---
SHIFT SUMMARY PATIENT CONTINUES TO REFUSE ALL CARE. PATIENT REFUSES ANY PAIN MEDICATIONS. PATIENT WILL NOT ALLOW NURSING TO INSERT IV FOR IV ANTIBIOTICS. PATIENT GETS EASILY AGITATED WITH QUESTIONS AND TELLS STAFF TO LEAVE HIM ALONE. PATIENT REFUSES TO ALLOW STAFF TO PROVIDE ANY PERSONAL CARE. FOOT DRESSING CHANGED YESTERDAY BY THIS NURSE YESTERDAY. PATIENT REFUSES TO ALLOW NURSE TO CHANGE DRESSING TODAY. PATIENT STATES IF HE HAD A GUN HE WOULD GET IT ALL OVER WITH. PATIENT NOT EATING OR DRINKING. FOOD AND WATER OFFERED TO PATIENT THROUGHOUT THE DAY.
--- NOTE | 2023-06-09 05:28 | NUR ---
SHIFT SUMMARY NOC A/O TO SELF ON COMFORT CARE MEASURES. REFUSED ALL CARE AND RX INCLUDING Q6H ABX. PT IS WITHDRAWN AND ORDERS STAFF OUT OF ROOM. NUTRITION AND FLUIDS OFFERED, BUT PT REFUSES BOTH ADAMANTLY AND TELLS STAFF TO LEAVE. PT HAS DRESSING IN PLACE ON R FOOT THAT IS C/D/I. PT IS CURRENTLY RESTING WITH BED IN LOWEST POSITION, AND CALL LIGHT WITHIN REACH.
--- NOTE | 2023-06-09 16:43 | NUR ---
SHIFT SUMMARY- PT SLEPT FOR MOST OF THIS SHIFT. HE IS REFUSING MEDICTION AND FOOD. BED IS IN THE LOW PSOITON AND CALL LIGHT IS WITHIN REACH.
--- NOTE | 2023-06-09 17:50 | NUR ---
RN TO RN REPORT AND HANDOFF FROM KENAN JORGE RN AT [id number]
--- NOTE | 2023-06-09 18:45 | NUR ---
PATIENT REFUSED ZOSYN THIS EVENING.
--- NOTE | 2023-06-10 05:52 | NUR ---
SHIFT SUMMARY NOC A/O TO SELF AND PLACE ON COMFORT CARE. PLEASANT BUT STILL REFUSING ALL ASSESSMENT AND PERSONAL CARE. NO ACUTE CHANGES TO REPORT. PT REFUSED ALL RX WELL. PT IS CURRENTLY RESTING WITH BED IN LOWEST POSITION, AND CALL LIGHT WITHIN REACH.
--- NOTE | 2023-06-10 17:02 | NUR ---
SHIFT SUMMARY Pt remains verbally aroused. Declines to answer location/date assessment. Denies pain. States leave me alone, I just want to sleep. Declines IV start, explained importance of IV antibiotics. Resp even nonlabored on RA. Urine dark sun in color. Has not been out of bed this shift. Emotional support provided. Pain and safety maintained. Drsg to right foot intact.
--- NOTE | 2023-06-10 21:40 | NUR ---
PATIENT DENIED 2100 MEDS.
--- NOTE | 2023-06-11 00:23 | NUR ---
PATIENT REFUSED TO LET THIS RN PUT AN IV IN TO RECEIVE IV ANTIBIOTICS-ASKED PATIENT WHY-HE STATED "BECAUSE YOU ARE NOT A DOCTOR". TRIED TO TALK TO PATIENT ABOUT BENEFITS TO GETTING HIS ANTIBIOTICS-PATIENT STOPPED TALKING.
--- NOTE | 2023-06-11 05:05 | NUR ---
SHIFT SUMMARY PATIENT IS ALERT TO SELF WITH VERBAL STIMULI. PATIENT REFUSED MEDS, REFUSED TO HAVE IV PLACED FOR IV ANTIBIOTICS-PATIENT EDUCATED ON THE IMPORTANCE OF ANTIBIOTICS. PATIENT HAS USED THE URINAL THIS SHIFT. PATIENT REFUSING CARE. PATIENT STATES-"LEAVE ME ALONE SO I CAN SLEEP". PATIENT COMFORT CARE. BED IS LOCKED IN THE LOWEST POSITION WITH CALL LIGHT IN REACH.
[2023-06-11] MEDS ORDERED: Ondansetron 4 MG SoluTab MM PRN (14:35)
--- NOTE | 2023-06-11 15:01 | NUR ---
PT CONTINUES TO DECLINE IV ANTIBIOTICS. PT DID EAT SOME CRACKERS WITH PEANUTBUTTER AND DRINKING WATER. COMPLAINED OF FEELING ILL. EDUCAITON PROVIDED ON THE BENEFITS OF IV ANTIBIOTICS. PT REFUSED. REPORTED NAUSEA. DR. Weaver NOTIFIED. SEE EMAR. OFFERED PAIN MEDICATION THIS MORNING. PT ACCEPTED TYLENOL. BUT REFUSED PAIN MEDICAION THIS AFTERNOON. PT IS VERY WITHDRAWN AND REFUSES TO ANSWER QUESTIONS AT TIMES.
[2023-06-11 15:15] VITALS: BP 163/84
--- NOTE | 2023-06-11 15:22 | NUR ---
Case Conference Note Spoke with Dr Kaplan and discussed case. Comfort Care order cancelled and Pt placed as Full Code until guardianship can be established as Pt does not have capacity to make decisions. Palliative Care will remain available
--- NOTE | 2023-06-11 19:07 | NUR ---
SHIFT SUMMARY NO ACUTE CHANGES THIS SHIFT. PT DID EAT SOME FOOD AND DRINK. REFUSING IV MEDICAITIONS. REFUSING MOST CARE. I WAS UNABLE TO ASSESS ANY OTHER SYSTEM EXECPT FOR LUNG SOUNDS. PT SHUT DOWN AND WOULD NOT ANSWER ANY QUESTIONS OR ALLOW A FULL ASSESSMENT. PLS SEE PREVIOUS NOTE PT MADE A FULL CODE TODAY PT STATING THAT HE DOESNT WANT TO LIVE
[2023-06-11 19:46] VITALS: BP 158/93
--- NOTE | 2023-06-11 21:25 | NUR ---
PATIENT C/O FEELING NAUSEOUS AND LIKE HE COULD VOMIT-ASKED PATIENT IF HE WANTED THE NAUSEA MEDICINE HE HAD EARLIER TODAY-PATIENT DENIED, ASKED PATIENT IF HE WANTED A NAUSEA BAG-HE ASKED FOR A BUCKET-WAS BASIN GIVEN TO PATIENT.
[2023-06-12 04:14] VITALS: BP 145/89
--- NOTE | 2023-06-12 04:14 | NUR ---
SHIFT SUMMARY NO ACUTE CHANGES THIS SHIFT. PATIENT ASKED FOR WARM BLANKETS. PATIENT REFUSED IV MEDICATIONS AND ORAL MEDICATION. PATIENT REFUSED MOST CARE-DID READJUST HIMSELF IN BED WHEN ASKED TO MOVE UP IN BED TO PREVENT HIM FROM FALLING. PATIENT C/O BEING COLD-WARM BLANKETS PROVIDED. CALLED FACILITIES TO HAVE ROOM TEMPERATURE TURNED UP. BED LOCKED IN THE LOWEST POSITION WITH CALL LIGHT IN REACH.
[2023-06-12 07:32] VITALS: BP 133/83
[2023-06-12 11:32] VITALS: BP 125/82
--- NOTE | 2023-06-12 13:07 | NUR ---
PT IS VERY WITHDRAWN. REFUSING ALL CONVERSATION WITH ME. PALLIATIVE CARE AT PT BEDSIDE TODAY. CONTINUES TO REFUSE ALL IV AND NEEDLE POKES.
[2023-06-12] MEDS ORDERED: Morphine Sulfate 20 MG/1ML 1 ML Oral Syringe SL PRN (14:50)
[2023-06-12 15:30] VITALS: BP 147/91
--- NOTE | 2023-06-12 15:56 | NUR ---
SHIFT SUMMARY PT DECLINES CONVERSATION. STATES THAT HE JUST WANTS TO BE LEFT ALONE. MEDICATED PAIN PER EMAR. PT REFUSED TO EAT, BUT LEFT SOME SNACKS IN THERE AND HE ATE THEM WHEN NO ONE WAS IN THE ROOM. HE IS CONTINUING TO REFUSE IV AND NEEDLE POKES. HIS BEHAVOIR APPEARS CHILD LIKE IN NATURE. USED NURTURING AND FIRM CONVERSATION. PT SEEMED TO BE SLIGHTLY MORE RESPONSIVE AND AGGREABLE.
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
[2023-06-12 20:09] VITALS: BP 154/85
[2023-06-13 02:39] VITALS: BP 127/77
--- NOTE | 2023-06-13 07:24 | NUR ---
SHIFT SUMMARY PATIENT REFUSED ALL MEDICATIONS. PATIENT REFUSED IV ACCESS IV ABX AND THE IV ABX. ASKED THE PATIENT IF WE COULD START AN IV ON HIM SO HE CAN RECEIVE HIS ABX-"PATIENT SAID NO YOUR NOT A DOCTOR" ASKED PATIENT IF A DOCTOR PUT AN IV IN WOULD HE TAKE HIS ABX-PATIENT STATED "NO THE DOCTORS NOT PUTTING ONE IN AND I WONT TAKE ANYTHING". PATIENT SLEPT T/O NIGHT, ADJUSTING HIMSELF IN BED, USING THE URINAL. BED IS LOCKED IN THE LOWEST POSITION WITH CALL LIGHT IN REACH.
[2023-06-13 08:06] VITALS: BP 139/92
--- NOTE | 2023-06-13 09:28 | NUR ---
pt resting looks comfortable. Nursing was able to get him to order food today. slot shift supervisor unable to get him to acccept medications. Will reassess today and see how he tolerates turns and bedside care. Will try some more therputic time with him and nomalized conversation to see if he can respond.
[2023-06-13 15:40] VITALS: BP 122/79
[2023-06-13] MEDS ORDERED: Calcium Carbonate 500 MG Tab Chew PO PRN (16:00)
--- NOTE | 2023-06-13 16:43 | NUR ---
NO CHANGES. PT REFUSED IV ANTIBIOTICS. HE DID REQUEST TUMS. SEE UPDATED EMAR. REFUSED PAIN MEDICAITON. HE ATE 50% SOME OF HIS LUNCH TODAY. HE WANTED A GRILLED CHEESE SANDWICH. DRANK 25% OF GLUCERNA
[2023-06-13 19:39] VITALS: BP 139/82
[2023-06-14 03:17] VITALS: BP 144/88
--- NOTE | 2023-06-14 05:18 | NUR ---
SHIFT SUMMARY NO ACUTE CHANGES. PATIENT REFUSED ANTIBIOTICS, AND IV PLACEMENT. PATIENT REFUSED SCHEDULED MEDICATIONS. PATIENT C/O PAIN-ASKED PATIENT IF HE WOULD LIKE TYLENOL FOR PAIN-MEDICATED WITH TYLENOL. BED IS LOCKED IN THE LOWEST POSITION WITH CALL LIGHT IN REACH.
[2023-06-14 07:18] VITALS: BP 129/77
--- NOTE | 2023-06-14 14:00 | NUR ---
Isidro is resting on his right side. He appears comfortable. His lunch tray is untouched. Offered lunch or snack. He kept his eyes closed and didn't respond. Offered to read him a poem. Isidro asked this RN to go away. He did not appear angry, just matter of fact. Will remain available and continue to offer theraputic cares.
[2023-06-14 15:51] VITALS: BP 140/90
--- NOTE | 2023-06-14 17:10 | NUR ---
PT HAS HAD NOT ACUTE CHANGES. PT REFUSES IV AND REFUSES MEDICATION TO DAY. ATTEMPTS TO DO FOOT CARE PT NOT COOPERATING AND DID NOT WANT IT UNWRAPPED. BANDAGE OVER R FOOT ULCER IS INTACT. PT RESTING IN BED DENIES ANY NEED FOR PAIN MEDICATION. WILL CONTINUE TO MONITOR. CALL LIGHT WITHIN REACH.
[2023-06-14 19:40] VITALS: BP 155/98
[2023-06-15 02:44] VITALS: BP 118/71
--- NOTE | 2023-06-15 04:09 | NUR ---
CAREER SERVICES COORDINATOR SUMMARY VSS WHEN ALLOWING STAFF TO TAKE THEM. HAS BEEN REFUSING MEDS AND TREATMENTS THROUGHOUT SHIFT. AT TIMES WILL IGNORE NURSE WHEN NURSE IS OFFERING MEDS. OTHER TIMES WILL OUTRIGHT REFUSE THEM. HAD BEEN SLEEPING MOST OF THE SHIFT, THEN AROUND [facility], VOICED FEELING "COLD". OFFERED WARM BLANKET AND PT ACCEPTED IT. RESPS EVEN. ISOLATION PRECAUTIONS MAINTAINED. CALL LIGHT IN REACH. WILL CONTINUE TO ENCOURAGE COMPLIANCE WITH TREATMENT/PLAN OF CARE.
[2023-06-15 07:10] VITALS: BP 147/94
[2023-06-15] MEDS ORDERED: Miconazole Nitrate 2% 85 GM PWD TOP PRN (09:50)
--- NOTE | 2023-06-15 13:24 | NUR ---
Isidro is laying on his right side with his knees pulled up. Blankets are half on half off. FLACC scale places pain 2/10. He declined pain medication at this time with a nod of his head. Offered a snack with no response. Left snack on his bedside table. Replaced batteries in his bedside fan. Will remain available and continue to offer theraputic cares.
[2023-06-15 16:09] VITALS: BP 167/101
--- NOTE | 2023-06-15 17:08 | NUR ---
PATIENT REFUSING ALL CARE TODAY DESPITE MULTIPLE ATTEMPTS TO CARE FOR HIM. REFUSING MEALS. WHEN ATTEMPTED TO EDUCATE THIS PATIENT HE STATES "I'M NOT INTERESTESTED IN YOUR LISTS." AWAITING GUARDIANSHIP. PATIENT VERY WITHDRAWN AND ANGRY WITH STAFF. MD AWARE.
[2023-06-15 20:53] VITALS: BP 154/102
[2023-06-16 05:06] VITALS: BP 147/94
--- NOTE | 2023-06-16 07:46 | NUR ---
SHIFT SUMMARY PT REFUSING CARE. COOPERTIVE WITH VITAL SIGNS BUT REFUSED IV IN ORDER TO ADMINISTER IV ANTIBIOTICS. DID NOT ALLOW ME TO UNWRAP DRESSING TO RIGHT FOOT TO ASSESS. PATIENT SLEPT MAJORITY OF SHIFT, USED URINAL ONCE, DARK TEA COLORED URINE. CALL LIGHT IN REACH. AWAITING GUARDIANSHIP. AWARE OF PT'S NONCOMPLIANCE. PT HAS NO MOTIVATION AND KEEPS TELLING US TO "LEAVE HIM ALONE" STAFF ENTERS ROOM FOR CARE, BETWEEN MYSELF AND REGULATORY INTERN.
[2023-06-16 07:53] VITALS: BP 130/86
--- NOTE | 2023-06-16 08:16 | NUR ---
Isidro resting with eyes closed. He nodded head no when asked about pain. Other than that he agreed to fan this morning. No further communication NOC RN denies any changes last night. This morning his hands are very warm to the touch compared to his arms. When this PC RN mentioned to pt that his hands were warm he said, "fan over there." Turned bedside fan toward pt. Plan: Will remain available.
[2023-06-16 15:29] VITALS: BP 148/87
--- NOTE | 2023-06-16 17:43 | NUR ---
SHIFT SUMMARY PT REMAINED IN BED T/O SHIFT. REFUSED REPOSITIONING. REFUSED MEDICATIONS. REFUSED MEALS. REFUSED BEDBATH. REFUSED PAIN MEDS. REFUSED ORAL CARE. REFUSED DRESSING CHANGE TO FOOT. REFUSED PARTS OF HEAD TO TOE ASSESSMENT. PT STATES THAT HE IS IN PAIN, YET WILL NOT ACCEPT ANY PAIN MEDS FROM THIS RN. PT STATES HE WOULD "RATHER LIE HERE IN PAIN, THAN TAKE MEDS". MD AWARE OF THESE REFUSALS. PT DID AGREE TO A FRESH ICE WATER TWICE TODAY. NO OTHER ACUTE CHANGES AT THIS TIME. VS REVIEWED. CALL LIGHT IN REACH.
[2023-06-16] MEDS ORDERED: Bisacodyl 10 MG Supp PR PRN (18:00)
[2023-06-16] MEDS ORDERED: Magnesium Hydroxide Conc 10 ML UDC PO PRN (18:00)
--- NOTE | 2023-06-16 20:42 | NUR ---
PT REFUSED ALL PM MEDICATIONS, VITAL SIGNS, ALLOWED THIS NURSE TO LISTEN TO HIS HEART/LUNGS. REFUSED ALL OTHER CARE AT THIS TIME.
[2023-06-16] MEDS ORDERED: Docusate Sodium 100 MG Cap PO SCH (21:00)
[2023-06-16] MEDS ORDERED: Sennosides 8.6 MG Tab PO SCH (21:00)
--- NOTE | 2023-06-17 04:14 | NUR ---
SHIFT SUMMARY PT REFUSED ALL CARE THIS SHIFT. REFUSED MEDICATIONS, VITAL SIGNS, AND CARE. LET THIS NURSE LOOK AT HIS FOOT BANDAGE BUT WOULD NOT LET ME TOUCH HIM. BANDAGE LOOKS DRY AND INTACT. BED KEPT IN LOWEST POSITION WITH CALL LIGHT IN REACH.
[2023-06-17 07:32] VITALS: BP 100/41
--- NOTE | 2023-06-17 16:52 | NUR ---
PT CONTINUES TO REFUSE CARE. MANY TIMES PT WILL NOT EVEN RESPOND WHEN TALKED TO. PT WOULD NOT LET BANDAGE BE CHANGED ON R FOOT. CALL LIGHT IS WITHIN REACH WILL CONTINUE TO MONITOR.
--- NOTE | 2023-06-18 03:31 | NUR ---
SHIFT SUMMARY PT REFUSING ALL CARE, VITALS, MEDICATIONS. WOULD NOT LET ME ASSESS HIS FOOT AT ALL. PT STATED THERE WAS NOTHING I COULD DO TO HELP HIM. I ENCOURAGED PT TO TAKE ABX BUT STILL REFUSING. IGNORES STAFF OR SOMETIMES WILL GIVE A YES OR NO RESPONSE WHEN ASKED QUESTIONS. PT DID ASK ME FOR WATER AND TOLD ME HE WAS COLD. PT GIVEN ICE WATER AND WARM BLANKETS. BED KEPT IN LOWEST POSITION WITH CALL LIGHT WITHIN REACH. WILL CONTINUE TO MONITOR.
[2023-06-18 07:18] VITALS: BP 150/93
--- NOTE | 2023-06-18 17:14 | NUR ---
SHIFT SUMMARY PATIENT CONTINUES TO BE RESISTANT WITH CARE. PATIENT REFUSING TO ALLOW STAFF TO HELP WITH REPOSITIONING AND TURNING. PATIENT FOUND INCONTINENT OF STOOL. PATIENT RELUCTANTLY ALLOWED STAFF TO GIVE HIM A BED BATH AND CHANGE LINENS. CHARLI AREA EXCORIATED WITH WHITE DISCHARGE. MEDICATED POWDER APPLIED TO AREA. PATIENT CONTINUES TO REFUSE TO TAKE MEDICATIONS. PATIENT PAINFUL BUT UNWILLING TO TAKE MEDICATIONS. PATIENT CONTINUES TO REFUSE TO EAT. OCCASIONALLY DRINKING SOME WATER. R FOOT DRESSING REWRAPPED.
[2023-06-18 19:48] VITALS: BP 116/68
--- NOTE | 2023-06-19 07:28 | NUR ---
REPORT RECEIVED. ENTERED ROOM AND SPOKE QWITH PT BUT PT WOULDNT ANSWER, HE KEPT EYES CLOSED AND WHEN I OFFERED ANYTHING HE WOULDNT ANSWER. NO IV ACCESS. ONCE I SPOKE ABOUT WARM BLANKETS PT FINALLY ANSWERED AND AGREED TO A BLANKET. NO C/O PAIN NO DISTRESS, PT JUST QUIETLY LAYED THERE PARTIAL ASSESSMENT WAS DONE.
[2023-06-19 07:45] VITALS: BP 141/82
[2023-06-19] MEDS ORDERED: OxyCODONE HCL 10 MG TABCR PO PRN (12:25)
[2023-06-19 15:54] VITALS: BP 135/83
[2023-06-19] MEDS ORDERED: Nystatin 100,000 Unit/GM CREAM 15 GM TOP SCH (16:00)
--- NOTE | 2023-06-19 18:00 | NUR ---
SHIFT SUMMARY PATIENT CONTINUES TO REFUSE MOST CARE. PATIENT AGREED TO TAKE PAIN MEDS TODAY. PAIN MEDS CHANGED TO PILL FORM. PATIENT NOT LIKING TASTE OF ROXINOL. PATIENT REQUESTED MORE PAIN MEDICATION THIS AFTERNOON AND TOOK PILL EASILY. PATIENT CONTINUES TO EAT AND DRINK MINIMALLY. GROIN CONTINUES TO BE VERY TENDER WITH WHITE DISCHARGE. PATIENT VERBALLY IRRITABLE WITH ANY CARE. PATIENT OFTEN DOES NOT INTERACT OR ANSWER QUESTIONS, BUT IMPROVED TODAY. PATIENT CONTINUES TO STATE THAT IF HE HAD A GUN HE WOULD GET THIS OVERWITH.
[2023-06-19 19:51] VITALS: BP 130/92
[2023-06-20 02:49] VITALS: BP 124/68
--- NOTE | 2023-06-20 06:33 | NUR ---
SHIFT SUMMARY: PT IS ADMITTED FOR DIABETIC FOOT ULCER AND HYPERGLYCEMIA AND IS A DNR. IS ALERT AND ABLE TO MAKE SOME NEEDS KNOWN. DECLINED ALL MEDS AND STATED WHAT'S THE POINT BUT HAS ALLOWED MOST NIGHT ADLs. HE IS ON CONTACT PRECAUTIONS FOR MRSA.
[2023-06-20 15:49] VITALS: BP 116/64
--- NOTE | 2023-06-20 17:18 | NUR ---
SHIFT SUMMARY PATIENT RESTLESS THROUGHOUT SHIFT. PATIENT PULLED NG TUBE OUT AT SHIFT CHANGE THIS MORNING. NEW KENZIE PLACED AND XRAY OBTAINED. TUBE FEEDING RESTARTED. FAMILY AT BEDSIDE AFTER NEW KENZIE PLACED. EDUCATED FAMILY THAT PATIENT WILL NEED TO BE RESTRAINED IF NOT BEING MONITORED BY FAMILY. FAMILY IN AGREEMENT WITH PLAN. PATIENT DANGLED AT BEDSIDE 3 X TODAY. PATIENT CONTINUES TO HAVE BACK PAIN AND DIFFICULTY GETTING COMFORTABLE. PATIENT CONTINUES TO BE INCONTINENT WITH URINE AND NEEDING FREQUENT ATTENDS CHANGES. CONTINUE TO PROVIDE EDUCATION AND SUPPORT TO FAMILY. FAMILY VERY HOPEFUL THAT PATIENT WILL RETURN TO BASELINE PRIOR TO THIS EVENT. PATIENT TO BE NPO AT MIDNIGHT FOR POSSIBLE CHRISS BY CARDIOLOGY. DR ARELLANO SPOKE TO PALMYRA REGARDING TRANSFER. NO BEDS AVAILABLE AT THIS TIME. PATIENT PLACED IN RESTRAINT, OUT OF ROOM AND PATIENT ATTEMPTING TO PULL NG TUBE OUT RESTRAINTS INITIATED.
--- NOTE | 2023-06-20 17:36 | NUR ---
SHIFT SUMMARY PATIENT CONTINUES TO BE RESISTANT WITH CARE AT TIMES. PATIENT CONTINUES TO EAT MINIMAL FOODS AND DRINK LIMITED LIQUIDS. PATIENT BATHED AND PERICARE PROVIDED. GROIN CONTINUES TO BE INFLAMED AND TENDER. POWDER AND CREAM APPLIED TO AREA. PATIENT WILLING TO TAKE A PAIN PILL TODAY FOR FOOT PAIN. PATIENT STATES L FOOT VERY PAINFUL ALSO. NO OPEN WOUNDS OR DISCOLORATION SEEN.
--- NOTE | 2023-06-21 05:15 | NUR ---
REINFORCING BAR SETTER SUMMARY CONTINUE TO REFUSE ALL TREATMENTS, MEDS AND ATTEMPTS TO ASSESS/CHANGE HIM. CALL LIGHT IN REACH. ISOLATION PRECAUTIONS MAINTIANED
[2023-06-21 07:41] VITALS: BP 144/80
--- NOTE | 2023-06-21 10:28 | NUR ---
NURSE NOTE THIS RN ATTEMPTED TO COMPLETE ASSESSMENT AND PASS MEDICATIONS AND PATIENT REFUSED. PATIENT HAS BEEN DECLINING CARE, MEDICATIONS, AND FOOD AT THIS TIME, WILL TRY AGAIN LATER IN SHIFT. IS AWARE.
--- NOTE | 2023-06-21 17:29 | NUR ---
SHIFT SUMMARY PATIENT IS ALERT AND ORIENTED. PATIENT HAS REFUSED CARE ALL SHIFT. PATIETNT ALLOWED NURSING STAFF TO GET MORNING VITALS. ASSESSMENT WAS DONE TO BEST THAT PATIENT ALLOWED THIS RN TO GIVE. DR DESOUZA.
--- NOTE | 2023-06-21 21:44 | NUR ---
REFUSING ALL MEDS AND TREATMENTS. WILL CONTINUE TO ENCOURAGE PT TO COMPLY WITH TREATMENT. RESTING QUIETLY WATCHING TV. CALL LIGHT IN REACH
--- NOTE | 2023-06-22 05:49 | NUR ---
DIRECT SUPPORT STAFF MEMBER SUMMARY CONTINUES TO REFUSE CARE AND ALL MEDS. HAS BEEN RESTING QUIETLY WITH OCCASIONAL INTERRUPTIONS. WATCHING TV. RESPS EVEN. CALL LIGHT IN REACH. ISOLATION PRECAUTIONS MAINTAINED. REQUEST MADE TO CHARGE NURSE FOR F/U WITH PSYCH CONSULT/VISIT RE PT RATIONALE FOR REFUSAL. WILL CONT TO MONITOR
[2023-06-22 07:42] VITALS: BP 133/80
[2023-06-22 16:05] VITALS: BP 148/92
--- NOTE | 2023-06-22 18:31 | NUR ---
Will ask for multidisiplinary team meeting to review pt care needs. Pt does not have the ability to navigate multiple staff and requests. He is lacking capacity. Pt is having pain he has lost his family and has endstage disease. Will suggest hospice house out of area.
--- NOTE | 2023-06-22 19:13 | NUR ---
SHIFT SUMMARY PATIENT REFUSED MOST CARE AND FOOD TODAY, HE DID REQUEST WATER AND ICE CREAM. PATIENT STATES PAIN 04/27 BUT STATES "THOSE MEDS DONT WORK" REFUSED ALL MEDICATIONS TODAY. BED IN LOW POSITION. CALL LIGHT IN REACH. PATIENT DOES NOT CALL.
--- NOTE | 2023-06-23 06:36 | NUR ---
SHIFT SUMMARY PT IS DROWSY, BUT WAKES WHEN STERNAL RUBBED. IRRITATED, TELLING ME TO GET OUT OF HIS ROOM. REFUSING ALL CARES AND MEDICATIONS. WOULD NOT ALLOW ME TO PREFORM AN ASSESSMENT. BED IN LOWEST POSITION. FIRE SAFETY CHECKS COMPLETED
[2023-06-23 15:18] VITALS: BP 150/91
--- NOTE | 2023-06-23 15:41 | NUR ---
Isidro does not want to talk to this PC RN this morning. Primary RN reports Isidro asked for Tylenol this morning. This afternoon, RN reports pt had self tranfered to [facility] and back to bed. He interacted with RN from yesterday. He would greatly benefit from continuity of care with the same Primary RN as much as possible. Will discuss with discharge planner.
--- NOTE | 2023-06-23 17:04 | NUR ---
SHIFT SUMMARY- PT IS ALERT AND PLESANT THIS SHIFT. HE SAT AT THE EDGE OF THE BED TWICE THIS SHIFT. THE BED ALARM WAS SET OFF AND PT HAD TRANSFERED HIMSELF TO THE [facility]. HE REPORTED THAT HE NEEDED TO HAVE A BM BUT WAS UNSUCCESSFUL. HE REPORTED WANTING TO TRY TO GO TO THE [facility] LATER THIS SHIFT BUT DECIDED AGAINST IN DUE TO FEAR OF FALLING. HE SLEPT FOR MUCH OF THIS SHIFT. OFFERED TYLONEL SEVERAL TIMES THIS SHIFT PT WAS OPEN TO TAKING IT BUT WANTED TO WAIT UNTIL LATER. HIS BED IS IN THE LOW POSITION AND CALL LIGHT IS WITIN REACH.
[2023-06-23 19:37] VITALS: BP 114/68
[2023-06-24 03:45] VITALS: BP 141/87
--- NOTE | 2023-06-24 05:30 | NUR ---
SHIFT SUMMARY NOC PT A/O TO SELF AND PLACE. PLEASANT BUT REFUSING MOST CARE. PT DID HAVE C/O OF BLE PAIN AND GIVEN TYLENOL. PT OTHERWISE SLEPT ENTIRETY OF SHIFT. PT IS CURRENTLY RESTING WITH BED ALARM ON, BED IN LOWEST POSITION, AND CALL LIGHT WITHIN REACH.
[2023-06-24 07:16] VITALS: BP 140/83
--- NOTE | 2023-06-24 16:59 | NUR ---
SHIFT SUMMARY- PT SLEPT FOR MOST OF THIS SHIFT. HIS APPETITE IS POOR. HE DENIES ANY PAIN TODAY. HIS BED IS IN THE LOW POSITION AND CALL LIGHT IS WITIN REACH.
[2023-06-24 20:09] VITALS: BP 125/77
--- NOTE | 2023-06-25 06:02 | NUR ---
SHIFT SUMMARY: PT IS ADMITTED FOR DIABETIC FOOT ULCER AND IS A DNR. IS ALERT AND ABLE TO MAKE MOST NEEDS KNOWN. HAS REFUSED ALL CARES THROUGH SHIFT. STATING I JUST WANT TO BE LEFT ALONE AND SLEEP OR GO AWAY. THESE STATEMENTS ALSO COVER MEDICATIONS. WHEN ASKED ABOUT PAIN HE DID NOT RESPOND. HE DID NOT SHOW ANY SX OF PAIN.
--- NOTE | 2023-06-25 11:42 | NUR ---
PATIENT ON SCHEDULED IV ABX, DOES NOT HAVE IV ACCESS AND HAS BEEN REFUSING MEDS. THIS RN SPOKE TO DR. BREWER REGARDING THIS CONCERNED. RECEIVED ORDER FROM DR. BREWER TO DC'D IV ABX.
--- NOTE | 2023-06-25 17:06 | NUR ---
SHIFT SUMMARY: PATIENT A/OX3, APPEARS TO BE WITHDRAWN AND HAS FLAT AFFECT. PATIENT REFUSED SCHEDULED MEDS PER EMAR AND VITALS TAKEN THIS SHIFT. PATIENT ALLOWED THIS RN TO PERFOMED PART OF SKIN ASSESSMENT AND REQUESTED "JUST LET ME SLEEP." PATIENT HAS BEEN SLEEPING OFF AND ON T/O SHIFT. PATIENT REFUSED ALL MEALS AND USES URINAL IN BED INDEPNDENTLY. PATIENT ASSIGNED GUARDIAN (TRAY) CAME AND SAW PATIENT TODAY. DRESSING TO R FOOT C/D/I. NO IV ACCESS PER ORDER. BED ALARM ON FOR SAFETY. CALL LIGHT IN REACH.
--- NOTE | 2023-06-26 03:39 | NUR ---
SHIFT SUMMARY PT IS A&O TO SELF AND PLACE. REFUSING ALL MEDICATIONS, CARE, AND VITALS THIS SHIFT. PT REFUSING TO ANSWER ASSESSMENT QUESTIONS. THIS RN ATTEMPTED TO PERFORM ASSESSMENT. PT NOT RESPONDING OR IGNORING ANY OF MY QUESTIONS. LITTLE TO NO PO INTAKE THIS SHIFT. PT SLEEPING/RESTING IN BED T/O SHIFT. REFUSES ANY PAIN MEDICATIONS. BED KEPT IN LOWEST POSITION WITH CALL LIGHT WITHIN REACH. WILL CONTINUE TO MONITOR.
[2023-06-26 08:04] VITALS: BP 112/67
--- NOTE | 2023-06-26 16:23 | NUR ---
SHIFT SUMMARY: PATIENT A/OX3, CALM, PLEASANT AND COOPERATIVE c CARE PROVIDED THIS SHIFT. PATIENT ALLOWED THIS RN TO PERFORMED FULL HEAD TO TOE SKIN ASSESSMENT AND TOOK ALL SCHEDULED MEDS PER EMAR THIS SHIFT. PATIENT ALLOWED THIS RN AND BAG WORKER GIVING HIM BEDBATH AND LINEN CHANGED TODAY. PATIENT DECLINED TO EAT HIS MEALS, BUT REQUESTED SADI CRACKERS AND ICE WATER, WHICH HAS BEEN PROVIDED TO THE PATIENT T/O SHIFT. THIS RN ASKED PATIENT OF WHY HE IS NOT ALLOWING NURSES TO TAKE CARE FOR HIM AND REFUSING MEDS. PER PATIENT, "I DON'T CARE ANYMORE, MY MOM , ALL MY SISTER AND I HAVE TWO BROTHER WHO ARE STILL ALIVE, BUT THEY DON'T CARE ABOUT ME AND WHY SHOULD I." PATIENT APPEARS DEPRESSED, WITHDRAWN AND HAS FLAT AFFECT. PATIENT CONTINENCE AND USES URINAL IN BED. R FOOT DRESSING C/D/I. PATIENT DENIES CP/PRESSURE, SOB, N/V AND GENERALIZED PAIN. PATIENT USES CALL LIGHT AND ABLE TO MAKE NEEDS KNOWN THIS SHIFT. NO IV ACCESS PER ORDER. BED ALARM ON FOR SAFETY. CALL LIGHT IN REACH.
[2023-06-26 16:27] VITALS: BP 127/76
[2023-06-26 20:15] VITALS: BP 104/62
--- NOTE | 2023-06-27 03:58 | NUR ---
SHIFT SUMMARY PT HAS RESTED T/O THE SHIFT, PT HAS REFUSED MEDICATIONS THIS SHIFT, STATING "JUST LET ME SLEEP." PT DID ALLOW TO HAVE HIS VITALS TAKEN AND DID LET RN PERFORM ASSESSMENT, PT HOWEVER DID NOT WANT ME TO TOUCH HIS RIGHT FOOT FOR A FULL ASSESSMENT. DRESSING APPEARS C/D/I. PT REPORTS THAT HIS FEET ARE NUMB AND TINGLING ALL THE THE. PT REPORTS PAIN IN RIGHT FOOT A 10/10 BUT REFUSED PAIN MEDICATIONS WHEN OFFERED. PT ROUNDED ON T/O THE NIGHT AND DENIES NEEDS WHEN ASKED. VITALS ARE STABLE. BED IN LOWEST POSITION, CALL LIGHT WITHIN REACH.
[2023-06-27 05:30] VITALS: BP 137/81
[2023-06-27 07:25] VITALS: BP 111/74
[2023-06-27 15:29] VITALS: BP 133/79
--- NOTE | 2023-06-27 17:40 | NUR ---
SHIFT SUMMARY: PATIENT REFUSED SCHEDULED MEDS PER EMAR THIS SHIFT. PATIENT ALLOWED UNDERWRITING DIRECTOR TO HAVE HIS VITALS TAKEN AND DID LET THIS RN PERFORM ASSESSMENT, REFUSED DRESSING CHANGED TO R FOOT, DRESSING TO R FOOT APPEARS C/D/I. THIS RN REMINDED PATIENT THAT TODAY HIS BIRTHDAY, PATIENT REPLIED "I DON'T GIVE A F... JUST LET ME SLEEP AND LIVE ME ALONE WHEN YOU ARE DONE LISTENING TO MY LUNGS." PATIENT SLEPT THE ENTIRETY OF THIS SHIFT. NO URINE OUTPUT THIS SHIFT. PATIENT REPORTS PAIN 10/10 TO R FOOT, OFFERED PRN PAIN MEDS BUT DECLINED. VITAL SIGNS REVIEWED. BED ALARM ON FOR SAFETY. CALL LIGHT IN REACH.
[2023-06-27 20:34] VITALS: BP 136/88
--- NOTE | 2023-06-28 16:41 | NUR ---
SHIFT SUMMARY PT HAS REFUSED ANY CARE TODAY. MEDS AND CREAMS OFFERED. CHECKED FOR BEING WET AND HAS BEEN DRY. DRESSING INTACT TO RLE. SAYS LEAVE ME ALONE WHENEVER STAFF ASKS/OFFERS TO HELP PT. VISITOR FROM THE COURT TO SEE HIM BY THE NAME OF ADAM BUT PT SAID HE DIDN'T WANT TO SPEAK WITH ADAM.
--- NOTE | 2023-06-29 04:28 | NUR ---
Shift Summary Pt refusing all care this shift, just wanted to be left alone to sleep. He slept well t/o the shift. Dressing on R foot appears C/D/I. Awaiting placement into [facility].
--- NOTE | 2023-06-29 18:40 | NUR ---
SHIFT SUMMARY PT REFUSED ANY CARE INCLUDING CHECKING FOR WETNESS. WON'T EAT AND FOOD. SAYS HE WOULDN'T FEED IT TO A DOG. SAYS LEAVE ME THE HELL ALONE OR GO AWAY. BASIC ASSESSMENT COMPLETED WITH LUNGS, HEART, ABD SOUNDS BUT OTHERWISE WOULDN'T ANSWER QUESTIONS OR MOVE FOR SKIN ASSESSMENT. HAS LAID ON HIS R SIDE ALL DAY. ICE WATER OFFERED TODAY BUT REFUSED. DID ACCEPT IT THIS EVENING.
--- NOTE | 2023-06-30 01:16 | NUR ---
06/29/23 6555 PT LYING IN BED, REPORTS PAIN IN R FOOT BUT REFUSES PAIN MEDS OR ANY OTHER INTERVENTIONS. REFUSED DRESSING CHANGE FOR R FOOT AND TO LET THE SOCK BE REMOVED OR CHANGED ON THE L FOOT. PT REFUSED MEDICATIONS AND AN ASSESSMENT. NO AUDIBLE SOB OR RESPIRATORY DISTRESS APPARENT, ON RA. PT REFUSES TO WEAR ARM BANDS, THEY ARE BY THE RN COMPUTER IN ROOM. PT DENIES NEED FOR ANYTHING AT THIS TIME. CALL LIGHT IS IN REACH. PT ENCOURAGED TO CALL IF HE NEEDS ANYTHING.
--- NOTE | 2023-06-30 01:18 | NUR ---
PT LYING IN BED, EYES CLOSED, APPEARS TO BE RESTING. BREATHIG IS EVEN, UNLABORED. NO APPARENT SIGNS OF DISTRESS. CALL LIGHT IS IN REACH.
--- NOTE | 2023-06-30 04:18 | NUR ---
PT LYING IN BED, EYES CLOSED, APPEARS TO BE RESING. BREATHING IS EVEN, UNLABORED. NO APPARENT SIGNS OF DISTRESS. CALL LIGHT IS IN REACH.
--- NOTE | 2023-06-30 04:18 | NUR ---
0200 PT LYING IN BED, EYES CLOSED, APPEARS TO BE RESTING. BREATHING IS EVEN, UNLABORED. NO APPARENT SIGNS OF DISTRESS. CALL LIGHT IS IN REACH.
--- NOTE | 2023-06-30 05:01 | NUR ---
PT IS AAO X SELF AND ?, PT WILL NOT ANSWER QUESTIONS TO FULLY ASSESS ORIENTATION. PT HAS HX OF DEVELOPMENTAL DELAY. ON RA. REPORTS PAIN BUT REFUSES ANY MEDS. ALSO REFUSES ASSESSMENT AND DRESSING CHANGE. NO APPARENT SOB OR RESPIRATORY DISTRESS. DID NOT GIVE PAIN SCALE BUT FACE SCALE FOR PAIN WAS ABOUT A 2/10. WOUND TO R FOOT.
--- NOTE | 2023-06-30 06:02 | NUR ---
PT LYING IN BED, EYES CLOSED, APPEARS TO BE RESTING. BREATHING IS EVEN, UNLABORED. NO APPARENT SIGNS OF DISTRESS. CALL LIGHT IS IN REACH. NO OTHER CHANGES THIS SHIFT.
--- NOTE | 2023-06-30 11:54 | NUR ---
0940- RN WENT INTO PT'S ROOM TO ADMINISTER PT'S AM MEDS. PT POLITELY REFUSED HIS MEDS AND ALSO HIS HEAD TO TOE ASSESSMENT. RN ASKED IF PT WOULD BE OKAY IF HIS FOOT DRESSING WAS CHANGED. PT STATED, "LATER. JUST LEAVE ME ALONE."
--- NOTE | 2023-06-30 16:36 | NUR ---
1637- RN ASKED PT IF HEAD TO TOE ASSESSMENT OR DRESSING CHANGE CAN BE PERFORMED AND PT POLITELY REFUSED. RN ASKED AGAIN AND PT BECAME IRRITBALE. RN LEFT ROOM.
--- NOTE | 2023-06-30 16:38 | NUR ---
1628- PT REFUSED SCHEDULED MED.
--- NOTE | 2023-06-30 17:16 | NUR ---
SUMMARY- PT HAS REFUSED ALL CARE FROM RN THIS SHIFT. RN UNABLE TO PERFORM HEAD TO TOE ASSESSMENT AND DRESSING CHANGE. PT DID LET TALCER PERFORM AM VITALS AND ATE SADI CRACKERS AND CHEESE. PT REFUSED ANY FLUIDS THIS SHIFT. PT SLEPT ALL SHIFT AND WANTED TO BE LEFT ALONE.
--- NOTE | 2023-07-01 04:56 | NUR ---
1900: ASSUMED CARE OF PT, REPORT RECEIVED FROM DAY SHIFT RN. PT IS FOUND TO BE LAYING IN BED WITH EVEN UNLABORED BREATHING. REFUSED ALL CARE, VITALS, MEDICATIONS, AND ASSESSMENTS DURING THE NIGHT. SET OFF BED ALARM AT ONE POINT AND REQUESTED TUMS FOR HEART BURN, PROVIDED PER ORDERS, SEE EMR. NO S/S OF DISTRESS. PROVIDER IS AWARE OF PT'S REFUSAL TO PARTICIPATE IN TREATMENT.
--- NOTE | 2023-07-01 11:41 | NUR ---
PATIENT REFUSING CARE, CONITNUES TO REFUSE, BREAKFAST, MEDICATIONS, REPOSITIONING, PATIENT SLEEPING, NO S/S OF DISTRESS, RESPE EVEN AND NONLABORED, CALL LIGHT WITH IN REACH
--- NOTE | 2023-07-01 15:20 | NUR ---
MINIMLA INTERACTION THROUGH OUT THE DAY, WAKES EASILY AND THEN BACK TO SLEEP
--- NOTE | 2023-07-01 17:31 | NUR ---
NO CHANGE, PATIENT CONTINUES TO REFUSE ALL CARE, FOOD OR MEDICATIONS. WAKES TO VOICE AND TOUCH, EASILY BACK TO SLEEP. FAILURE TO THRIVE, PATIENT ENCOURAGED TO GET UP, PATIENT REFUSES, DENIES PAIN PRESENTLY, CALL LIGHT WITH IN REACH WILL CONTINUE TO MONITOR
[2023-07-01 22:02] VITALS: BP 138/69
--- NOTE | 2023-07-02 05:02 | NUR ---
1900: ASSUMED CARE OF PT, BEDSIDE REPORT RECEIVED FROM DAY SHIFT RN. PT REFUSES TO PARTICIPATE IN REPORT OR CARES. REFUSES ASSESSMENT AND MEDICAIONS THROUGHOUT SHIFT. BREATHING REMAINS EVEN AND UNLABORED DURING THE SHIFT. SAFETY MEASURES TAKEN. PT EXPRESSESS NO NEEDS.
--- NOTE | 2023-07-02 16:44 | NUR ---
SHIFT SUMMARY Pt alert to self this shift. Declines to answer assessment questions or any care to foot or skin. Did allow hygiene care. Pt declines meals. Pt states to leave him alone and turn the lights off.
[2023-07-02 19:58] VITALS: BP 115/78
--- NOTE | 2023-07-03 01:57 | NUR ---
END OF SHIFT SUMMARY PT SLEPT FOR THE ENTIRE SHIFT. PT REQUESTED ONE CUP OF WATER. PT WOULD NOT ANSWER ASSESSMENT QUESTIONS. TRAFFIC CONTROL TECHNICIAN WAS ABLE TO OBTAIN VS AT BEGINNING OF SHIFT. PT DID NOT ACKNOWLEDGE THIS AUTHOR's COMMANDS, PT DID NOT EVEN OPEN HIS EYES. MEDICATIONS WERE NOT GIVEN DUE TO PT'S INABILITY TO OPEN EYES. CALL LIGHT WITHIN REACH, WCTM.
--- NOTE | 2023-07-03 18:02 | NUR ---
SHIFT SUMMARY Pt continues to decline care, assessment, answer questions, or to eat meals. Continues to lay on right side, refuses to open eyes or converse. Just states to leave him alone, "no meds". No acute distress noted. Resp even nonlabored.
--- NOTE | 2023-07-04 02:33 | NUR ---
07/04/231999 PT LYING IN BED, WAS ABLE TO LISTEN TO LUNGS, THEY WERE CLEAR T/O, PT REFUSED FURTHER ASSESSMENT, REFUSED DRESSING CHANGE, REFUSED MEDS. DID ASK FOR COLD WATER, BROUGHT THAT TO HIM. DENIES NEED FOR ANYTHING ELSE AT THIS TIME. NO OTHER APPARENT SIGNS OF DISTRESS. CALL LIGHT IS IN REACH.
--- NOTE | 2023-07-04 02:34 | NUR ---
07/03/23 2200 PT LYING IN BED, EYES CLOSED, APPEARS TO BE RESTING. BREATHING IS EVEN, UNLABORED. NO APPARENT SIGNS OF DISTRESS. CALL LIGHT IS IN REACH.
--- NOTE | 2023-07-04 02:35 | NUR ---
0000 PT LYING IN BED, EYES CLOSED, APPEARS TO BE RESTING. BREATHING IS EVEN, UNLABORED. NO APPARENT SIGNS OF DISTRESS. CALL LIGHT IS IN REACH.
--- NOTE | 2023-07-04 02:36 | NUR ---
PT REQUESTED AND RECIEVED WARM BLANKET FROM THE [place] DECORATOR. DENIES NEED FOR ANYTHING ELSE AT THIS TIME. NO OTHER APPARENT SIGNS OF DISTRESS. CALL LIGHT IS IN REACH.
--- NOTE | 2023-07-04 05:10 | NUR ---
0400 PT LYING IN BED, AWAKE, NO APPARENT SIGNS OF DISTRESS. CALL LIGHT IS IN REACH.
--- NOTE | 2023-07-04 05:11 | NUR ---
PT IS AAO TO SELF AND UNK TO WHAT ELSE, PT REFUSES TO COOPERATE WITH AN ASSESSMENT. HX OF DEVELOPMENTALLY DELAYED. PT REPORTS PAIN ALL OVER BUT REFUSES PAIN MEDS AND ANY OTHER TYPE OF MEDS. WAS ABLE TO LISTEN TO PT'S LUNGS, THEY WERE CLEAR T/O, HOWEVER PT REFUSED ANY FURTHER ASSESSMENT. WOUND TO R FOOT, DRESSING IS INTACT, PT REFUSED DRESSING CHANGE AND ASSESSMENT OF WOUND.
[2023-07-04 09:18] VITALS: BP 121/75
[2023-07-04 15:07] VITALS: BP 141/84
--- NOTE | 2023-07-04 17:20 | NUR ---
SHIFT SUMMARY Pt continues to decline to answer assessment questions or allow assessment or care. Declines all meds, however did c/o nausea after eating cheese requesting Tums. Sx subsided. Voiding dark sun urine per urinal. Declines to get oob. Pain and safety maintained at this time. Will continue to monitor this shift.
[2023-07-04 19:25] VITALS: BP 129/79
--- NOTE | 2023-07-05 04:19 | NUR ---
END OF SHIFT SUMMARY PT SLEPT WELL OVERNIGHT. PT REFUSED 2100 MEDICATIONS. PT ALSO REFUSING CARE. PT DID LET CARESTAFF TAKE VITAL SIGNS. PT DENIED PAIN/DISCOMFORT. DOLLY PUSHER NOTIFIED THIS RN THAT PT HAS BEEN INDEPENDENT WITH TRANSFERS IN THE ROOM. PT REFUSED TO LET THIS AUTHOR ASSESS LEG DRESSINGS. PT ABLE TO MAKE NEEDS KNOWN. PT REQUESTED A WARM BLANKET, AND EXTRA PILLOW. CALL LIGHT WITHIN REACH, WCTM.
--- NOTE | 2023-07-05 08:17 | NUR ---
pt laying on his side, woke him up, pt refused care, assessment, and medications, told this nurse to leave, just leave. call light in reach.
--- NOTE | 2023-07-05 16:44 | NUR ---
attempted to give pt a pain pill several times, he wont respond, he is laying on his side, resp even and unlabored, wont open eyes. will try again later, call light in reach.
--- NOTE | 2023-07-05 18:09 | NUR ---
pt still remains unwilling to speak to staff, offered pain meds throughout the day, wont open his eyes, his linen was changed and he was changed this afternoon. no further changes this shift. call light in reach.
[2023-07-05 20:36] VITALS: BP 121/64
--- NOTE | 2023-07-06 02:16 | NUR ---
PT STILL REFUSING CARE. OFFERED PT PAIN MEDS AND HE REFUSED. DOES NOT WANT TO EAT OR DRINK. PT WOULD NOT OPEN EYES WHEN SPEAKING, STATES "I WISH YOU WOULD JSUT LEAVE ME ALONE"
--- NOTE | 2023-07-06 11:02 | NUR ---
REFUSED PT REFUSED BREAKFAST. REFUSED MORING MEDICATIONS. REFUSED ASSESSEMENT. REFUSED VS. HE WAS POLITE ABOUT THE REFUSEL OF CARE. HE WANTED THE LIGHTS OFF AND THE DOOR SHUT. DRESSING TO RIGHT FOOT CD&I. HE REFUSED DRESSING CARE. CARE ONGOING.
--- NOTE | 2023-07-06 14:53 | NUR ---
NOTE PT RESTING QUEITLY. RESP EVEN AND UNLABORED. THE ONLY THING HE ATE FOR LUNCH WERE CRACKERS. TRAY REMOVED. CARE ON GOING.
--- NOTE | 2023-07-06 16:50 | NUR ---
EVENING NOTE FAMILY CALLED. RELATED GUAREDSHIP INFORMATION. PT REFUSING CARE. BROUGHT HIM A PEPSI AND WATER. SAT AT BEDSIDE AND TALKED WHILE HE LAY THERE WITH HIS EYES CLOSED. NO PHYSICAL RESPONSE. CARE ONGOING.
--- NOTE | 2023-07-06 22:15 | NUR ---
PT REFUSES ALL CARE - SAYS "LEAVE ME ALONE." PT SAYS "NO" WHEN ASKED ABOUT HIM TAKING HIS MEDICATIONS. I ASKED PT IF I COULD LISTEN TO HIS LUNGS - "NO". PT REQUESTING TO BE LEFT ALONE, BUT ASKING FOR A WARM BLANKET - PROVIDED. CALL LIGHT WITHIN REACH.
--- NOTE | 2023-07-07 05:31 | NUR ---
SHIFT SUMMARY - PT HAS DECLINED CARE ALL NIGHT. CARE MANAGEMENT IS ON BOARD. REPORT IS PT NOW HAS A GUARDIAN. BED ALARM ON FOR SAFETY. CALL LIGHT WITHIN REACH. BED IN LOW POSITION. PT HAS BEEN OFF/ON SLEEPING THROUGHOUT THE NIGHT. WILL CONTINUE TO MONITOR UNTIL AM SHIFT CHANGE.
[2023-07-07 07:37] VITALS: BP 145/93
--- NOTE | 2023-07-07 09:28 | NUR ---
ASSESSMENT PT REFUSED BREAKFAST. REFUSED MORNING MEDCIATIONS. REFUSED DRESSING CHANGE. TOLD HIM THAT SOME NEW PEOPLE MAYBE COMING TO SEE HIM TODAY. MUNIR STATED,"TELL THEM TO FUCK OFF." CARE ONGOING.
--- NOTE | 2023-07-07 16:19 | NUR ---
Spiritual Care Consult received, chart reviewed, and information gathered from pt's RN. Patient immediately moved as I walked in but then turned his head to the side and closed his eyes. I speak to patient like he is fully involved in the conversation but he does not respond to any me except to peek out of one eye every now and then when he thought I might have looked away. I talk in simple terms about the meaning, purpose and the value of life. I speak about the of his mother, the grieving process and ways to manage that kind of loss. I spend time empowering him, highlighting his courage and drive to have some fight left in him and beauty of what he gets to carry on in his mother's honor. Patient did not respond except to lift his head and look at me real quick when I was taking the ISO gown and gloves off while exiting the . I will continue to remain available to patient and family.
[2023-07-07 20:29] VITALS: BP 139/83
[2023-07-07 20:30] VITALS: BP 139/83
[2023-07-08 00:50] VITALS: BP 155/101
--- NOTE | 2023-07-08 00:50 | NUR ---
PATIENT C/O CHEST PAIN, WHEN ASKED TO DESCRIBE THE PAIN PATIENT SAID HE COULDNT. I ASKED PATIENT IF HSI CHEST FELT TIGHT-PATIENT RESPONDED WITH I DONT KNOW. ASKED PATIENT IF HIS CHEST FELT HEAVY- IF SOMEONE WAS SITTING ON CHEST-PATIENT RESPONDED WITH I DONT KNOW. CHECKED PATIENTS B/P-B/P-155/101, PULSE-114. PATIENT STATING THAT HIS CHEST WAS HURTING REALLY BAD.
--- NOTE | 2023-07-08 01:00 | NUR ---
HOSPITALIST CONTACTED. HOSPITALIST CONTACTED AND INFORMED OF PATIENTS VITALS SIGNS AND CHEST PAIN. DR. FISCHER ORDER TO TREAT PATIENT FOR PAIN AND ASSESS FOR FURTHER CHEST PAIN FOLLOWING TREATMENT.
--- NOTE | 2023-07-08 01:10 | NUR ---
TOOK PAIN MEDICATION TO PATIENT FOR CHEST PAIN. PATIENT REFUSED TO TAKE PAIN MED. EXPLAINED TO PATIENT THAT THE DOCTOR ORDER FOR PATIENT TO BE TREATED WITH PRN PAIN MEDS-SEE EMAR-PATIENT REFUSED AND SAID-"IM NOT TAKING FUCKING DRUGS". MED DESTROYED WITH DIXON GRECO RN.
--- NOTE | 2023-07-08 06:03 | NUR ---
SHIFT SUMMARY. PATIENT HAS DECLINED MOST OF CARE TONIGHT.PATIENT ALLOWED THIS RN TO LISTEN TO HIS LUNGS AND BOWEL TONES. PATIENT ALLOWED FOR B/P TO BE TAKEN. PATIENT HAS DECLINED ALL OTHER CARE AND MEDICATIONS. PATIENT TOLD THIS RN THAT THE MEDICATION IS POSION. EDUCATED PATIENTS ON MEDICATION COMPLIANCE-PATIENT NON-RECEPTIVE TO EDUCATION AND TOLD THIS RN TO "FUCK OFF". BROUGHT PATIENT SNACK OF GRAHM CRACKERS AND PEANUT BUTTER-PATIENT ATE SNACK. BED IS LOCKED IN THE LOWEST POSITION WITH CALL LIGHT IN REACH.
[2023-07-08 06:52] VITALS: BP 119/79
[2023-07-08 08:06] VITALS: BP 116/103
[2023-07-08 15:52] VITALS: BP 120/78
--- NOTE | 2023-07-08 17:48 | NUR ---
SUMMARY- PT LET RN ASSESS HIM THIS MORNING PARTIALLY. PT REFUSED R FOOT DRESSING CHANGE. PT DID NOT ANSWER ANY QUESTIONS THIS SHIFT. PT STAYED IN BED ALL SHIFT. REFUSED ALL MEDS TODAY. PT LET MALE INFERTILITY SPECIALIST TAKE VITALS X2 THIS SHIFT.
--- NOTE | 2023-07-08 23:11 | NUR ---
PT REFUSING CARE, REFUSING VITALS. PT APPEARS TO BE SLEEPING, WONT ANSWER OUR QUESTIONS. CHEST RISING AND FALLING. DRESING TO RIGHT FOOT C/D/I, WONT ACCEPT CARE FOR DRESSING CHANGES.
[2023-07-09 02:22] VITALS: BP 130/64
--- NOTE | 2023-07-09 02:33 | NUR ---
PT ALLOWED VS THIS MORNING WITH SOME CONVINCING. STATES "WOULD YOU JUST LEAVE ME ALONE". PT STILL OTHERWISE REFUSING CARE. WATER PROVIDED. CALL LIGHT IN REACH. PROVIDED CLEAN TOP SHEET AND WARM BLANKET
--- NOTE | 2023-07-09 03:53 | NUR ---
ASKED MY CHARGE NURSE WENCESLAO MATTA WITH ASSISTANCE IN LOOKING UP WHEN DRESSING TO RIGHT FOOT WAS LAST CHANGED OR ANY KIND OF WOUND CARE DONE. IT LOOKS LIKE THE DRESSING HAS NOT BEEN TOUCHED SINCE 06/18/23 PER DOCUMENTATION. PT IS DEEMED NOT COMPETENT TO MAKE HIS OWN MEDICAL DECISIONS, LEGAL GUARDIANSHIP IS IN PLACE. WILL FOLLOW UP WITH DAY SHIFT AND ELEVATE CONCERNS TO MANAGEMENT AND LEGAL GUARDIANSHIP TO SEE WHAT CAN BE DONE FAR CARE GOES TO THIS DIABETIC FOOT ULCER THAT THE PATIENT REFUSED TO HAVE AMPUTATED THIS HOSPITAL STAY. PT IS PENDING LTC PLACEMENT. CARE CONTINUES.
[2023-07-09 08:20] VITALS: BP 161/84
--- NOTE | 2023-07-09 16:22 | NUR ---
DISCUSSED CASE WITH BEDSIDE RN. SHE REPORTED THAT ANISHA HAD NOT HAD HIS DRESSINGS CHANGED OR TAKEN PAIN MEDICATIONS. I WENT IN AND DISCUSSED THIS WITH ANISHA. HE REPORTED THAT THE PAIN MEDICATIONS DIDN'T HELP LAST TIME AND THEY WOULDNT DO ANYTHING THIS TIME. DISCUSSED THAT IT MAY TAKE A FEW DAYS OF BEING ON THEM CONSISTANTLY FOR THEM TO MAKE A DIFFERENCE WITH THE PAIN AND TRIED TO GET THE PATIENT TO OPEN UP ABOUT WHY HE DID NOT WAS TO TRY IT. HE SPOKE ABOUT NOT WANTING TO HAVE HIS FOOT AMPUTATED. CALLED GUARDIAN AND LEFT MESSAGE. FLOOR RN WANTED TO SEE IF SHE WOULD BE AVALIABLE TO COME WATCH THE DRESSING CHANGE POSSIBLY TOMORROW.
[2023-07-09 16:32] VITALS: BP 117/67
--- NOTE | 2023-07-09 17:48 | NUR ---
SHIFT SUMMARY: NO CHANGES IN PATIENT CONDITION. PATIENT ALERT AND ORIENTED, DOES NOT LIKE TO ANSWER TO ASSESSMENT QUESTIONS. PER PATIENT "JUST LEAVE ALONE, I JUST NEED SLEEP." PATIENT REFUSED DRESSING CHANGED TO R FOOT. PATIENT REPORTS PAIN TO R FOOT, OFFERED PAIN MEDICATION, BUT REFUSED. PATIENT REFUSED SCHEDULED MEDS PER EMAR. THIS RN SPOKE TO PALLIATIVE CARE RNKARLA DURING PATIENT ROUNDING REGARDING DRESSING CHANGED REFUSAL OR SHE CAN GET HOLD c PATIENT GUARDIAN IF SHE COULD CONVINCED THE PATIENT TO HAVE DRESSING CHANGED TOMORROW. PER PALLIATIVE CARE RN, SHE WILL MADE AN ATTEMPT TO CONTACT THE PATIENT GUARDIAN THIS PM. PATIENT SLEPT OFF AND ON T/O SHIFT. PATIENT REFUSED ALL MEALS THIS SHIFT AND ONLY ATE CHEESE AND CRACKERS FOR SNACKS PER REQUEST. BED ALARM ON FOR SAFETY. CALL LIGHT IN REACH.
[2023-07-09 21:38] VITALS: BP 140/83
--- NOTE | 2023-07-09 23:12 | NUR ---
PT REFUSED ASSESSMENT THIS EVENING STATED "I DO NOT WANT YOU TO TOUCH ME". I ASKED PT IF I COULD AT LEAST LOOK AT HIS FOOT WOUND AND HE SAID NO, QUESTIONED PT WHY HE DOES NOT WANT ANYONE TO TOUCH HIS FOOT TELLING HIM IT HASNT BEEN CHANGED SINCE 06/18 AND HE STATES "NO ONE HERE IS SKILLED ENOUGH TO DO IT". I ASKED HIM "WHAT WOULD YOU HAVE US DO" AND HE STATES "CUT IT OFF AND THROW IT AWAY" I TOLD PT THAT IS WHAT THE DOCTORS WANTED TO DO IN THE FIRST PLACE AND HE STATED "I KNOW BUT NO ONE HERE IS SKILLED ENOUGH TO DO IT". LEGAL GUARDIANSHIP IS IN PLACE PT IS DEEMED NOT COMPETENT TO MAKE OWN MEDICAL DECISIONS BY PSYCHE. LEGAL GUARDIAN DID NOT COME BY TODAY PER DAY SHIFT NURSE. PALLIATIVE CARE NURSE ATTEMPTED TO REACH LEGAL GUARDIAN BUT NO ANSWER, A VOICEMAIL WAS LEFT PER DAY SHIFT NURSE REPORT. WILL PASS ON TO DAY SHIFT TO ATTEMPT TO REACH LEGAL GUARDIAN AGAIN TO BE PRESENT FOR TREATMENT OF FOOT, TO DISTRACT/COMFORT PT. CARE CONTINUES, CALL LIGHT IN REACH. BED ALARM ON. R FOOT IS NOT DISCOLORED DISTAL TO DRESSING BUT APPEARS DRY.
[2023-07-10 04:46] VITALS: BP 152/94
[2023-07-10 08:10] VITALS: BP 145/110
--- NOTE | 2023-07-10 15:20 | NUR ---
SHIFT SUMMARY: PATIENT LET THIS RN ASSESS HIM THIS AM PARTIALLY AND ANSWER SOME OF THE ASSESSMENT QUESTIONS. PATIENT REFUSED R FOOT DRESSING CHANGED. PATIENT REFUSED BREAKFAST TRAY AND ATE 25% FOR LUNCH. PATIENT STAYED IN BED AND SLEPT OFF AND ON T/O SHIFT. PATIENT REFUSED SCHEDULED MEDS PER EMAR. PATIENT REPORTS PAIN TO R FOOT, OFFERED PAIN MEDICATION, BUT REFUSED. PATIENT LET LINE CONTROLLER TO HAVE HIS VITALS TAKEN. NO IV ACCESS PER ORDER. BED ALARM ON FOR SAFETY. CALL LIGHT IN REACH.
[2023-07-10 16:09] VITALS: BP 146/84
--- NOTE | 2023-07-10 19:00 | NUR ---
Spoke with nursing about changing his dressing and his lack of food and medication. Engaged with lety. He was very crabby and verbal. Lots of wwearing. This writes is aware of his family dynamic and his mothers illness. His language is family. repeated some of his swear words and told [facility]. was parental with lety and told him to eat and get care. set up his tray he fianlly ante some of his meal. His body movements display discomfort and incresing frailty. He threated to knock me down. Told him to get up and try. It was an exercise in stimulus and letting him vent. I them spoke gently about his mother and his loss and reassured him we will care for him. He is disabled, abandoned and sick. Will contact guarding and phsycians and care team about possible pain patch and other routes of medication medications by suppository. Suggest going in and changes dressing in stages with minimal conversation. will review with medical floor leadership staff.
--- NOTE | 2023-07-11 03:47 | NUR ---
1900: ASSUMED CARE OF PT. REPORT RECEIVED FROM DAY SHIFT RN. PT IS LAYING IN BED ON HIS LEFT SIDE. BREATHING IS EVEN AND UNLABORED, LCTA, HRR. NO ACUTE DISTRESS AT THIS TIME. PT RESPONDS WITH "WHY ARE YOU IN HERE?" NOT COOPERATIVE WITH FURHTER EXAMINATION, REFUSES MEDICATIONS. VOID OF CLEAR DONNY URINE IN THE URINAL, SEE EMR. PT DID NOT CALL DURING THE NIGHT. REMAINED IN BED WITH THE BED ALARM ON. FRESH WATER PROVIDER AND ROOM PICKED UP. SAFETY MEASURES TAKEN THROUGHOUT THE NIGHT.
[2023-07-11 04:27] VITALS: BP 159/100
--- NOTE | 2023-07-11 15:41 | NUR ---
SHIFT SUMMARY: NO NEW CHANGES IN PATIENT CONDITION THIS SHIFT. PATIENT LET THIS RN AND JADEN TARANGO DRESSING CHANGED TO R FOOT, BED BATH AND LINEN CHANGED. PATIENT CONTINUES TO REFUSED PAIN AND SCHEDULED MEDS PER EMAR THIS SHIFT. PATIENT ONLY ATE CHEESE AND CRACKERS PER REQUEST. PATIENT STAYED IN BED AND HAS BEEN SLEEPING OFF AND ON T/O SHIFT. NO IV ACCESS. AWAITING FOR SAFE PLACEMENT. BED ALARM ON FOR SAFETY CALL LIGHT IN REACH.
[2023-07-11 20:25] VITALS: BP 158/92
--- NOTE | 2023-07-12 00:30 | NUR ---
ASSUMED PT CARE FORM DAYSHIFT PT. PT RESTING IN BED ON ENTERING ROOM. INTRODUCED SELF. PT CONTINUES TO LYE IN BED WITH EYES CLOSED, NO REPSONCE GIVEN TO QUESTIONS ASKS. PT DOES NOT RESPOND TO ASSESSMENT WITH STETHASCOPE AND VITAL SIGNS TAKEN. OFFERED TO REPOSITION PT DUE TO FEET PRESSING AGENST FOOTBOARD OF BED. PT OPENS EYES AND STATES "NO YOU WONT, GET THE FUCK OUT OF MY ROOM". STATED CONCERN OF COMFORT, AGAIN OFFERED TO REPOSITION, PT STATES "DON'T YOU TOUCH ME". STOOL NOTED OF PT'S BLACKETS AND SHEETS, INFORMED PT LINENES WOULD NEED TO BE CHANGED. PT AGAIN STATES "GET THE FUCK OUT OF MY ROOM". [id number] CHRONOGRAPH OPERATOR DISCUSSED WITH PT IMPORTANCE OF SKIN CARE AND LINEN CHANGE. PT CONTINUES TO PROTEST BUT ALLOWS CHARLI CARE TO BE PERFORMED AND LINEN TO BE CHANGED. PT STATES "I HAVEN'T BEEN CHANGED FOR THREE MONTHS, I DON'T NEED TO BE CHANGED NOW". CONTIUED TO EDUCATE PT ON NEED TO KEEP SKIN CLEAN TO PREVENT BREAKDOWN. PT REFUSED ALL CARE AND TREATMENT AT THIS TIME. RESTING IN BED WITH EYES CLOSED. CALL LIGHT IN REACH. BED IN LOW POSITION. BED ALARM ON.
--- NOTE | 2023-07-12 05:15 | NUR ---
SHIFT SUMMARY: PT RESTING IN BED WITH EYES CLOSED MAJORITY OF NIGHT. DOES NO PRESENT WITH ANY VISIBLE SIGNS OF DISTRESS. MOVES SELF WELL IN BED, REPOSITIONING. CALL LIGHT IN REACH. BED IN LOW POSITION.
[2023-07-12 05:59] VITALS: BP 133/89
--- NOTE | 2023-07-12 18:28 | NUR ---
SHIFT SUMMARY PT HAS RESTED WITH EYES CLOSED, RESP EVEN & UNLABORED. REFUSED ALL MEDS & VS TODAY. IS NOT INTERACTING WITH STAFF, WILL NOT OPEN EYES, WILL NOT SPEAK, WILL NOT ANSWER DIRECT QUESTIONS. DID NOT EAT OR DRINK TODAY. MADE NO URINE TODAY. PT WAS DRY WITH LINEN CHANGE AND DID ALLOW MINIMAL HYGIENE CARE. HAS REPOSITIONED SELF IN BED AT WILL. DRESSING TO R FOOT REMAINS C/D/I, WAS CHANGED YESTERDAY. CALL LIGHT IS WITHIN REACH.
[2023-07-12 19:17] VITALS: BP 112/66
[2023-07-13 04:39] VITALS: BP 131/82
--- NOTE | 2023-07-13 07:28 | NUR ---
SHIFT SUMMARY PT A&OX3. VSS ON ROOM AIR. DENIES PAIN. REFUSING ALL CARES. DRESSING TO R FOOT, C/D/I. BRIEF IN PLACE. DID NOT HAVE ANY PO INTAKE. FIRE SAFETY CHECKS COMPLETED
[2023-07-13 14:59] VITALS: BP 114/68
--- NOTE | 2023-07-13 19:40 | NUR ---
SHIFT SUMMARY: PATIENT CONTINUES TO REFUSE ALL CARE. DID EAT PART OF A HALF SANDWICH, A PIECE OF CHEESE AND DRANK SOME WATER THIS AFTERNOON. DRESSING ON R FOOT NOT CHANGED. STAYED IN BED ALL DAY, HAS GOOD BED MOBILITY. IS WEARING ATTENDS, IS A BIT COMBATIVE WHEN NURSING STAFF CHANGES HIM.
--- NOTE | 2023-07-13 22:57 | NUR ---
RESTING QUIETLY, RESPS EVEN. REFUSES TO SPEAK TO STAFF WHEN NURSE IS ASKING QUIETIONS. CALL LIGHT IN REACH. ISOLATION PRECAUTIONS MAINTAINED
--- NOTE | 2023-07-14 03:16 | NUR ---
INSTALLATION SPECIALIST SUMMARY CONTINUES TO IGNORE STAFF INSTRUCTIONS. QUIET AND APPEARS TO BE SLEEPING EACH TIME STAFF ENTERS ROOM TO TALK TO PT. RESPS EVEN. NO NOTED S/S ACUTE DISTRESS. ISOLATION PRECAUTION MAINTAINED. CALL LIGHT IN REACH. RAILS UP X 3 FOR SAFETY. WILL CONTINUE TO MONITOR AND ENCOURAGE COMPLIANCE WITH TREATMENT
[2023-07-14 04:36] VITALS: BP 164/98
--- NOTE | 2023-07-14 06:24 | NUR ---
REPOSTIONED. BRIEF CHANGED. VOICED AGITATION. CALL LIGHT IN REACH
--- NOTE | 2023-07-15 03:37 | NUR ---
DIRECTOR OF ACADEMIC SUMMARY AROUND HS, VOICED HAD BM, BUT WHEN STAFF CAME IN TO CHANGE HIM, HE VOICED ANGER WHEN ENCOURAGED TO TURN, ETC. VOICED DISCOMFORT IN RIGHT FOOT. BUT BECAME RUDE AND INSENSITIVE WHEN NURSE ASKED IF HE WANTED A PAIN MED. HAS BEEN RESTING QUIETLY WITH FEW INTERRUPTIONS SINCE. CALL LIGHT IN REACH. RAILS UP X 2 FOR SAFETY. CONTINUES TO REFUSE MEDS AND MOST OF TREATMENTS. ISOLATION PRECAUTIONS MAINTAINED. ENCOURAGED TO COMPLY WITH TREATMENT. WILL CONTINUE TO MONITOR
--- NOTE | 2023-07-15 19:08 | NUR ---
SHIFT SUMMARY- PT CONTINUES TO REFUSE CARE, HOWEVER TODAY HE HAD ISIDRO STAFF COME TO EVALUATE FOR POSSIBLE PLACEMENT. WHILE THEY WERE HERE THIS RN WAS ABLE TO REMOVE THE DRESSING CLEAN THE WOUND AND REPLACE THE DRESSING. PT IS VERY PAINFUL BUT ADIMANTLY REFUSES TO TAKE PAIN MEDICATION WHEN OFFERED. PT ALSO HAD A LARGE BROWN PASTY BM. ATTENDS CHANGE PERFORMED, WELL A FULL BED BATH. AT THAT TIME (ABOUT 1530). PT HAS REQUESTED SEVERAL CUPS OF ICE WATER THIS EVENING. WITCH HE HAS DRANK. PT IN BED, CALL LIGHT IN REACH. HE FLIPPED AROUND PUTTING HIS HEAD AT THE FOOT OF THE BED AND REFUSED TO MOVE. NO CURRENT S&S OF DISTRESS.
[2023-07-15 19:51] VITALS: BP 149/100
[2023-07-15 19:53] VITALS: BP 152/100
[2023-07-16] MEDS ORDERED: Morphine Sulfate 20 MG/1ML 1 ML Oral Syringe SL PRN (14:35)
--- NOTE | 2023-07-16 19:06 | NUR ---
SHIFT SUMMARY- PT STILL CONTINUES TO REFUSE FOOD, CARE AND MEDICATION. ATTENDS WAS CHECKED AT 1900 CLEAN AND DRY. THERE IS NYSTATIN POWDER AT THE BEDSIDE, HOWEVER THE PT HAS A LOT OF CREAM IN PLACE THAT HE WILL NOT ALLOW STAFF TO CLEAN AT THIS TIME. PT HAS A FLAT AFFECT AND OFTEN DOES NOT RESPOND TO STAFF WHEN THEY SPEAK TO HIM. PT MOVES ABOUT IN THE BED, REFUSES TO ALLOW STAFF TO PROVIDE HIM WITH ANY COMFORT, PAIN MEDICATION OR PILLOWS. WILL PASS ON IN REPORT TO NIGHT RN. PT WAS SWITCHED TO COMFORT CARE TODAY, PLAN IS FOR DISCHARGE ON HOSPICE. PT IN BED, CALL LIGHT IN REACH NO S&S OF DISTRESS NOTED.
--- NOTE | 2023-07-17 05:06 | NUR ---
SHIFT SUMMARY 62 YR M ON COMFORT CARE. NO CHANGES THIS SHIFT. PT IS STILL REFUSING ALL CARE AND HAS SLEPT FOR THIS ENTIRE SHIFT. HE HAS NOT ASKED FOR ANYTHING OR FOR ANY ASSISTANCE.
--- NOTE | 2023-07-17 16:59 | NUR ---
PT IS ALERT. PT IS PURPOSELY NON VERBAL FOR MOST QUESTIONS. THIS AM THE PT ADAMANTLY STATED TO LEAVE HIM ALONE, THE WELLNESS INSTRUCTOR WAS AT THE BEDSIDE A WITENESS. THE PT CONTINUED TO REFUSE CARE T/O THE DAY EXCEPT HE ALLOWED THE CATALYST PLANT SUPERVISOR'S TO PROVIDE HIM A BED BATH AND THIS AFTERNOON THE PT AGREED TO SOME SNACKS. CALL LIGHT IN REACH. BED IN THE LOW POSITION
--- NOTE | 2023-07-18 04:06 | NUR ---
COMFORT CARE SHIFT SUMMARY PATIENT HAS HAD NO ACUTE EVENTS THIS SHIFT. PATIENT HAS REFUSED ALL CARE THIS SHIFT AND REQUESTS NURSING STAFF LEAVE HIM ALONE. PATIENT HAS REFUSED HIS MEDICATION. ATTEMPTED TO CLEAN UP PATIENT AND PATIENT RESISTED AND TOLD STAFF TO LEAVE. WILL MONITOR UNTIL SHIFT CHANGE.
--- NOTE | 2023-07-18 18:06 | NUR ---
PT IS A/OX4, PT CONTINUES TO REFUSE MOST CARE AND WOUND DRESSING CHANGES. PT WAS GIVEN TUMS THIS AFTERNOON PER HIS REQUEST FOR GAS AND REFLUX. PT WAS GIVEN SNACKS PER HIS REQUEST. PT ADIMITTED TO HAVING PAIN, HOWEVER, DECLINED PAIN MEDICATION. CALL LIGHT IN REACH. BED IN THE LOW POSITION
--- NOTE | 2023-07-19 00:48 | NUR ---
07/18/232136 PT LYING IN BED, EYES CLOSED, APPEARS TO BE RESTING, IS REFUSING TO OPEN EYES AND ANSWER QUESTIONS AT THIS TIME. WOUND TO R FOOT, DRESSING IS C/D/I, PT REFUSES FURTHER ASSESSMENT OF WOUND AND REFUSES DRESSING CHANGE. PT'S LUNGS ARE DIMINISHED, NO EDEMA IN LE'S. PT REFUSES ANY FURTHER ASSESSMENT. NO APPARENT SIGNS OF DISTRESS. CALL LIGHT IS IN REACH.
--- NOTE | 2023-07-19 00:50 | NUR ---
07/18/23 2200 PT LYING IN BED, EYES CLOSED, APPEARS TO BE RESTING. BREATHING IS EVEN, UNLABORED. NO APPARENT SIGNS OF DISTRESS. CALL LIGHT IS IN REACH.
--- NOTE | 2023-07-19 00:51 | NUR ---
0000 PT LYING IN BED, EYES CLOSED, APPEARS TO BE RESTING. BREATHING IS EVEN, UNLABORED. NO APPARENT SIGNS OF DISTRESS. CALL LIGHT IS IN REACH.
--- NOTE | 2023-07-19 02:15 | NUR ---
PT LYING IN BED, REQUESTED AND RECIEVED CHEESE AND CRACKERS AND OJ. NO OTHER APPARENT SIGNS OF DISTRESS. CALL LIGHT IS IN REACH.
--- NOTE | 2023-07-19 04:38 | NUR ---
PT LYING IN BED, AWAKE, WENT TO CHECK PT'S ATTENDS AND DISCOVERED HE DID NOT HAVE ANY ON. BED AND BLANKETS ARE DRY. PT DOES NOT WANT ANOTHER ATTENDS ON AT THIS TIME. NO OTHER APPARENT SIGNS OF DISTRESS. CALL LIGHT IS IN REACH.
--- NOTE | 2023-07-19 04:39 | NUR ---
PT IS AAO X 1, NO DISCOMFORT REPORTED OR VISIBLE FOR THIS SHIFT. PT DECLINED MEDS. PT HAS R FOOT WOUND W/DRESSING THAT APPEARS C/D/I, PT REFUSED ASSESSMENT OF WOUND AND REFUSED DRESSING CHANGE.
--- NOTE | 2023-07-19 05:45 | NUR ---
PT LYING IN BED, EYES CLOSED, APPEARS TO BE RESTING. BREATHING IS EVEN, UNLABORED. NO APPARENT SIGNS OF DISTRESS. CALL LIGHT IS IN REACH. NO OTHER CHANGS THIS SHIFT.
--- NOTE | 2023-07-19 16:39 | NUR ---
COMFORT CARE SHIFT SUMMARY PATIENT IS ALERT AND ORIENTED. PATIENT HAS SLEPT MOST OF SHIFT. PATIENT HAS REFUSED ALL OF HIS DAILY MEDICATIONS. PATIENT HAS REFUSED MOST OF PATIENT CARE. PATIENT HAS NOT COMPLAINED OF PAIN, NAUSEA, SOB OR VOMITTING THIS SHIFT. PATIENT HAS ONLY REQUESTED SNACKS. BED IN LOCKED AND LOWEST POSITON. CALL LIGHT IN PLACE. WILL MONITOR UNTIL SHIFT CHANGE.
--- NOTE | 2023-07-19 19:14 | NUR ---
RECEIVED REPORT FROM CHRIS RN. PT LYING IN BED. RESP E/U ON RA. NO NEEDS AT THIS TIME. PT STATES HE KNOWS HOW TO USE THE CALL LT. CALL LT IN REACH.
--- NOTE | 2023-07-20 02:57 | NUR ---
PT DENIES NEEDS, STATES HIS FEET FEEL NUMB BUT DOESN'T NEED ANYTHING FOR PAIN. WILL CONTINUE TO PROVIDE CARE. CALL LT IN REACH.
--- NOTE | 2023-07-20 05:29 | NUR ---
PT RESTING QUIETLY AT THIS TIME. RESP E/U ON RA. CALL LT IN REACH.
--- NOTE | 2023-07-20 05:31 | NUR ---
SHIFT SUMMARY: PT ALERT AND ABLE TO STATE NEEDS. NO ACUTE CHANGES. DENIED PAIN AND SOB. DECLINED PAIN MEDS T/O SHIFT, STATES HE DIDN'T NEED ANY YET. PT HAS BEEN PLEASANT. WILL CONTINUE TO PROVIDE CARE UNTIL SHIFT REPORT TO ONCOMING NURSE.
--- NOTE | 2023-07-20 18:04 | NUR ---
SHIFT SUMMARY PT MEDICATED WITH TYLENOL ONCE TODAY. REFUSED ALL OTHER MEDS. PT DID ALLOW FOR AM CHARLI CARE AND NYSTATIN APPLICATION. PT ALSO HAD LINENS CHANGED AT THIS TIME. PT BECAME VERY IRRITABLE DURING THIS TIME. CALMED DOWN AFTER CARE HAD STOPPED. PT PROVIDED WITH KAVITA AND SADI MOULTON TO SNACK ON T/O SHIFT. AWAITING PLACEMENT. ASHUTOSH TO REVIEW PATIENT TOMORROW. REFUSED ALL OTHER CARE AND REPOSITIONS THE REST THE SHIFT. NO OTHER ACUTE CHANGES IN ASSESSMENT AT THIS TIME. RESTING IN BED WITH EYES CLOSED. EVEN RISE AND FALL TO CHEST.
--- NOTE | 2023-07-21 04:08 | NUR ---
SHIFT SUMMARY PATIENT ON COMFORT CARE. AXO X 1-2 AND BEDREST. NO IV ACCESS. RESTING IN BED WITH EYES CLOSED T/O SHIFT. PATIENT DENIES PAIN. REFUSED MEDICATION AND REPOSITIONING AT TIMES. CALL LIGHT IN REACH. BED IN LOWEST POSITION. WILL CONTINUE TO MONITOR UNTIL DAY SHIFT NURSE ASSUMES CARE.
--- NOTE | 2023-07-21 13:41 | NUR ---
SAT WITH REP FROM AGING & PEOPLE WITH DISABILITIES IN PT'S ROOM TO ASSIST WITH EVAL OF PT. PT DID NOT PARTICIPATE, PT REMAINED LYING IN BED WITH EYES CLOSED RESP EVEN & UNLABORED. ASKED QUESTIONS DIRECTLY TO PT HOWEVER PT DID NOT RESPOND OR OPEN EYES.
--- NOTE | 2023-07-21 18:20 | NUR ---
SHIFT SUMMARY HAS APPEARED TO SLEEP THROUGHOUT SHIFT, EYES CLOSED, RESP EVEN & UNLABORED. DID NOT EAT, REFUSED ALL MEDS. PT RECEIVED HYGIENE & PERICARE ALTHOUGH WAS QUITE RESISTANT. WAS WET WITH URINE. ONCE TASK WAS DONE, PT RESTED QUIETLY, ASKED FOR WARM BLANKETS AND WENT BACK TO SLEEP. R FOOT DRESSING C/D/I. NO IV ACCESS PER MD ORDER. CALL LIGHT WITHIN REACH, BED IN LOW POSITION.
--- NOTE | 2023-07-22 05:13 | NUR ---
END OF SHIFT SUMMARY PT ON COMFORT CARE. PT REFUSED 2100 MEDICATIONS. PT UNRESPONSIVE, SELECTIVELY ANSWERING A FEW OF THE NURSING ASSESSMENT QUESTIONS, ONLY WITH ONE WORD ANSWERS. FLUIDS AND SNACKS OFFERED THROUGHOUT THE SHIFT. R FOOT DRESSING C/D/I. UNSURE WHEN THE LAST DRESSING CHANGE WAS. PLACED CALL LIGHT WITHIN REACH, SO PT COULD EASILY GET AHOLD OF CARE STAFF NEEDED FOR ASSISTANCE. PT DID CALL x1 REQUESTING A WARM BLANKET. COTTON STOMPER WAS ABLE TO CHECK TO MAKE SURE BRIEF WAS NOT SOILED. WCTM.
--- NOTE | 2023-07-22 08:00 | NUR ---
pt was asked if he would like pain meds or any needs, would not answer, turned himself in bed, resp even and unlabored, call light in reach.
--- NOTE | 2023-07-22 09:20 | NUR ---
Supportive Visit Pt lying supine with his eyes closed. Pt is known to this freelance writer. He is acting like a opossum. Not responding to questions then out of the blue he says, "just leave". Asked about pain/discomfort and offered medical intervention. Pt declined stating, "it doesn't help". Offered warm blanket which he accepted.
--- NOTE | 2023-07-22 12:37 | NUR ---
pt continues to not acknowlege staff in room. offered pain meds several times, wont answer, or eat, call light in reach.
--- NOTE | 2023-07-22 16:57 | NUR ---
PT CONTINUES TO BE IRRITABLE AND REFUSING MOST CARE. OFFERED WATER, LEMONAIDE, ANYTHING HE MIGHT WANT, HE REFUSES. ASKED ME TO LEAVE HIS ROOM. PRESENTLY CLEAN AND DRY. BED IN LOW POSITION, CALL LITE IN REACH, BED ALARM ON FOR SAFETY.
--- NOTE | 2023-07-23 03:25 | NUR ---
END OF SHIFT SUMMARY PT ON COMFORT CARE. PT CONTINUES TO REFUSES ALL CARE. PT ABRUPT AND UNPLEASANT OVERNIGHT. PT TOLD CARE STAFF TO "GO TO HELL" AND TO "GIVE THOSE FUCKING MEDS TO SOMEONE ELSE." AT BEGINNING OF SHIFT PT IGNORED MOST OF ASSESSMENT QUESTIONS. WILL LEAVE PT ALONE FOR THE REST OF THE SHIFT. WILL ATTEMPT TO HELP PT CHANGE BRIEF BEFORE MORNING SHIFT NURSES AND CNAS ARE ASSIGNED PT. CALL LIGHT WITHIN REACH, WCTM.
--- NOTE | 2023-07-23 17:50 | NUR ---
DAYSHIFT SUMMARY Patient resting in bed all day, declined medications and RN to assess. Poor PO intake, refused all meals, but did request juice and sandwhiches this afternoon. Allowed cares to be done by ACOUSTICS TEACHER, large BM and voided this shift. Will continue plan of care, awaiting discharge planning.
--- NOTE | 2023-07-24 04:12 | NUR ---
SHIFT SUMMARY PT ALERT, LYING IN BED. REFUSED MEDICATIONS AND DID NOT ALLOW THIS RN TO COMPLETE ASSESSMENT. DID ALLOW GEOTHERMAL SYSTEM INSTALLER TO PERFORM VITALS. REQUESTED JUICE, CRACKERS, AND CHEESE. PT HAD AN EPISODE OF BOWEL INCONTINENCE IN HIS BED. BED CHANGED COMPLETED AND PT CLEANED UP. PT REFUSING ANY PAIN MEDICATIONS. DENIES AN NEEDS THAT I COULD HELP HIM WITH. RIGHT FOOT BANDAGE C/D/I. BED KEPT IN LOWEST POSITION WITH CALL LIGHT WITHIN REACH. BED ALARM SET.
--- NOTE | 2023-07-24 12:03 | NUR ---
SPOKE WITH DR. BREWER REGARDING ROUTINE SCHEDULED MEDICATION ON PATIENT'S EMAR. GIVEN THE PATIENT'S HISTORY OF REFUSING CARE AND MEDICATION AND ASKED DR. BREWER IF HE FELT IT WAS APPROPRIATE TO D/C THOSE MEDICATIONS (NYSTATIN, KENALOG TOPICAL, COLACE, SENKOT, AND PROBIOTIC). DR. BREWER AGREED AND REQUESTED THAT I CALLED THE RESIDENT TO TALK TO THEM AND HAVE THEM D/C MEDICATIONS. CALL WAS MADE TO DR. BURNETT AND HE STATED THAT HE WOULD D/C THOSE MEDICATIONS.
--- NOTE | 2023-07-24 16:41 | NUR ---
SHIFT SUMMARY: PT IS A 62 YEAR OLD MALE HERE ON COMFORT CARE OF 07/16/23. THE PLAN IS TO HAVE HIM DICHARGE TO A USP CARE FACILITY ON HOSPICE, BUT IS STILL AWAITING PLACEMENT. HE CONTINUES TO REFUSE CARE AND BE MEDICATED FOR HIS PAIN, EVEN THOUGH HE REPORTS PAIN. EDUCATION PROVIDED TO PATIENT ON COMFORT CARE AND THE ABILITY TO MANAGE PAIN. PATIENT WASN'T AGGRESSIVE OR RUDE TOWARDS STAFF DURING THE SHIFT; SLEPT MOST OF IT. HE IS IN BED SLEEPING, RESPIRATIONS EQUAL AND UNLABORED, NO SIGNS OR SYMPTOMS OF DISTRESS. HE HASN'T USED HIS CALL LIGHT. CHECKED ON HIM THROUGHTOUT THE SHIFT AND NO NEEDS REQUESTED/PROVIDED DURING THOSE TIMES. PLAN OF CARE ONGOING.
--- NOTE | 2023-07-25 05:31 | NUR ---
SHIFT SUMMARY. PATIENT ADMITTED FOR DIABETIC FOOT ULCER AND HYPERGLYCEMIA. PATIENT IS CURRENTLY ON COMFORT AWAITING FOR PLACEMENT W/ RAILROAD CAR CLEANING SUPERVISOR CARE FACILTY. PATIENT HAS REFUSED TO BE TREATED FOR REPORTED PAIN. WHEN EDUCATING THE PATIENT ON PAIN AND COMFORT CARE, PATIENT TOLD THIS RN TO "GET OUT OF HERE". PROVIDED PATIENT WITH GRAHM CRACKERS, CHEESE, AND ICE WATER INCASE HE NEEDED A SNACK- PATIENT ATE THE SNACK. PATIENT IS BEDREST. PATIENT HAS NO IV PER ORDER.PATIENT HAS VERY LITTLE URINE OUTPUT THIS SHIFT-URINE IS DARK AND DONNY IN COLOR. BED IS LOCKED IN THE LOWEST POSITION WITH CALL LIGHT IN REACH-PATIENT DOES NOT CALL. BED EXIT ALARM ENGAGED FOR PATIENT SAFETY.
--- NOTE | 2023-07-25 17:48 | NUR ---
SHIFT SUMMARY: PT ORIENTED TO SELF. COMFORT CARE PT. PT REFUSING MOST CARE THIS SHIFT. PT ALLOWED THIS RN TO LOOK AT WOUND AND LISTEN TO LUNGS WITH ASSESSMENT BUT REFUSED ALL OTHER CARE. PLAN FOR PENITENTIARY CARE FACILITY. WHEN PT REPORTED PAIN IN LOWER EXTREMITY WOUND, PT DENIED PAIN MEDICATION AND REPOSITIONING. VERY LITTLE OUTPUT THIS SHIFT. NO IV ACCESS ORDER. CALL LIGHT IN REACH. BED IN LOWEST POSITION. CURRENTLY RESTING COMFORTABLY IN BED.
--- NOTE | 2023-07-26 04:08 | NUR ---
SHIFT SUMMARY PT ALERT AND ORIENTED TO SELF. TRIED TO ASSESS PT WOUND AND LUNGS AND PT REFUSED. PT WILL NOT ANSWER ANY QUESTIONS FOR ME AND IGNORES ME WHEN I TRY TO COMMUNICATE WITH HIM. NO FOOD INTAKE THIS SHIFT AND VERY LITTLE FLUID INTAKE. BANDAGE TO RIGHT FOOT WOUND APPEARS C/D/I. PAIN MEDICATION OFFERED BUT PT DECLINED. BED KEPT IN LOWEST POSITION WITH CALL LIGHT WITHIN REACH. WILL CONTINUE TO MONITOR UNTIL END OF SHIFT.
--- NOTE | 2023-07-26 17:23 | NUR ---
SHIFT SUMMARY- PT SLEPT FOR A MAJORITY OF THIS SHIFT. REFUSED MEDICATION THIS SHIFT. REFUSED WOUND CARE. HE HAD A BM THIS SHIFT. HIS APPETITE IS POOR BUT HE DID EAT THIS SHIFT. HIS BED IS IN THE LOW POSITON AND CALL LIGHT IS WITIN REACH.
--- NOTE | 2023-07-27 02:35 | NUR ---
ASSUMED CARE PT APPEARS TO BE SLEEPING AT THIS TIME, RESP UNLABORED, CALL LIGHT IN REACH
--- NOTE | 2023-07-27 12:00 | NUR ---
PT REPRTED THART HE WAS COLD THIS AM. A WARM BLANKET WAS PRIVIDED. ON RETURN ROUNDING WHEN AKED IF HE WAS STILL COLD THE PATIENT WOULD NOT ANSWER
--- NOTE | 2023-07-27 17:04 | NUR ---
PT IS RESTING IN BED APPEARS TO BE COMFORTABLE. PETERSON IN COLOR. PT DENIED ANY PAIN OR ANY NEED FOR PAIN MEDICATION TODAY. THE PT DECLINED TO HAVE HIS WOUND DRESSING CHANGED. PT HAS A POOR APPETITE, HOWEVER, DOES ASK FOR SNACKS T/O THE DAY. CALL LIGHT IN REACH. BED IN THE LOW POSITION
--- NOTE | 2023-07-28 04:50 | NUR ---
SHIFT SUMMARY MUNIR WAS SLEEPING WHEN I ATTEMPTED TO ASSESS HIM, PT REFUSED TO COOPERATE WITH ASSESSMENT, REFUSED WOUND CARE, AND DECLINED ANY MEDICATIONS TONIGHT. COMFORT CARE PT AWAITING PLACEMENT. HE HAD NO ACUTE EVENTS TONIGHT, AND NO OBVIOUS CHANGES TO CONDITION. PT SLEEPING IN BED AT A LOW POSITION WITH THE CALL LIGHT IN REACH. WILL CONTINUE TO ATTEMPT TO PROVIDE CARE PT TOLERATES.
--- NOTE | 2023-07-28 16:45 | NUR ---
PT IS ALERT, CONTINUES TO REFUSE DINNER TRAY, WOWEVER IS EATING SEVERAL SNACK FOODS T/O THE DAY. WHEN ASKED THE PT IF HE WOULD LIKE TO TAKE ANY PAIN MEDICATION HE DECLINED FROM THIS RNYUSUFR HE DID TAKE TYLENOL FROM VIN[facility] STANLEY. PT HAD A BM TODAY. CALL LIGHT IN REACH
--- NOTE | 2023-07-29 06:23 | NUR ---
PATIENT IS ALERT TO SELF. PATIENT REFUSING CARE. PATIENT ASKED FOR SNACKS AND WARM BLANKETS TODAY. DRESSING TO RIGHT LOWER EXTREMITY APPEARS C/D/I-PATIENT REFUSED THIS RN TO ASSESS. BED IS LOCKED IN LOWEST POSITION W/CALL LIGHT IN REACH.
--- NOTE | 2023-07-29 19:32 | NUR ---
SHIFT SUMMARY PATIENT CONTINUES ON COMFORT CARE. PATIENT INCONSISTANT ABOUT INTERACTING WITH CARE. PATIENT REFUSING PAIN MEDS BUT COMPLAINS OF SEVERE PAIN. PATIENT VERBALIZING THAT HE WAS REFUSING CARE BUT WOULD ALLOW STAFF TO PROVIDE PERSONAL CARE WHEN INCONTINENT. PATIENT REFUSING MEALS BUT EATING SNACKS AND DRINKING FLUIDS.
--- NOTE | 2023-07-30 04:32 | NUR ---
SHIFT SUMMARY. PATIENT IS A 62 YEAR OLD MALE IN WITH A DIABETIC FOOT ULCER TO THE RIGHT FOOT. PATIENT REFUSING ALL CARE. PATIENT C/O PAIN-REFUSES PAIN MEDICATION, REPOSITIONING, MUSIC. PATIENT ASKED FOR ORANGE JUICE AND A WARM BLANKET. PATIENT REFUSED FOR THIS RN TO CHANGE HIS RIGHT FOOT BANDAGE-BANDAGE APPEARS C/D/I. PATIENT IS CURRENTLY WAITING FOR USP PLACEMENT. BED IS LOCKED IN THE LOWEST POSITION W/CALL LIGHT IN REACH.
--- NOTE | 2023-07-30 18:39 | NUR ---
SHIFT SUMMARY PATIENT MORE INTERACTIVE TODAY. PATIENT USING CALL LIGHT FOR NEEDS. PATIENT INCONTINENT WITH STOOL TODAY AND CALLED TO BE CLEANED. PATIENT CONTINUES TO HAVE PAIN BUT REFUSES ANY PAIN MEDICATIONS. PATIENT CONTINUES TO SAY HE WISHED HE HAD A GUN AND COULD JUST GET THIS OVERWITH. PATIENT EATING AND DRINKING SMALL AMOUNTS OF FOOD.
--- NOTE | 2023-07-31 07:36 | NUR ---
ASSUMED CARE: PT RESTING AT THIS TIME. NO ACUTE NEEDS OR CONCERNS.
--- NOTE | 2023-07-31 11:30 | NUR ---
DR BENEDICT CAME TO SEE PT AND IS AWARE THAT PT HAS BEEN SLEEPING T/O DAY AND PARTICULAR ABOUT WHAT CARE HE WILL RECIEVE. NO ACUTE NEEDS AT THIS TIME. LOSS PREVENTION CONSULTANT HAS BEEN CHECKING ON HIM PERIODICALLY WELL
--- NOTE | 2023-07-31 16:25 | NUR ---
VANDANA AND THIS RN ENTERED ROOM TO PERFORM ATTENDS CHANGE. PT WAS VERY RESISTANT TO CARE BUT HAD BM THAT NEEDED TO BE CLEANED. ADAMANTLY TOLD STAFF NOT TO TOUCH WOUNDED RIGHT FOOT AND DECLINED PAIN MEDS. DID ALLOW ANTIFUNGAL POWDER APPLICATION TO RAW SCROTUM. ASKED FOR ORANGE JUICE, SADI CRACKERS AND CHEESE WHICH HAS BEEN PROVIDED
--- NOTE | 2023-07-31 18:23 | NUR ---
SHIFT SUMMARY: PT HAS BEEN RESTING ALL SHIFT AND DECLINING CARE. ALLOWED ONE ATTENDS CHANGE AND WOULD NOT ALLOW STAFF TO TOUCH LEG IN ORDER TO ATTEMPT DRESSING CHANGE. AWAITING PLACEMENT. DECLINED PAIN MEDS. NO FURTHER NEEDS AT THIS TIME.
--- NOTE | 2023-08-01 05:29 | NUR ---
END OF SHIFT SUMMARY PT REFUSED ALL CARE THIS SHIFT. FREQUENT SAFETY CHECKS COMPLETED OVERNIGHT. PT APPEARED TO BE SLEEPING WELL. PT NOT RESPONSIVE TO ASSESSMENT QUESTIONS. CARE STAFF LEFT PT ALONE TO GET SOME REST. PT ABLE TO CALL FOR WARM BLANKETS OR WATER WHEN HE NEEDS IT. CALL LIGHT WITHIN REACH, WCTM.
--- NOTE | 2023-08-01 18:40 | NUR ---
SHIFT SUMMARY: ON COMFORT CARE. REFUSED TO PARTICIPATE IN CARE. REFUSED OFFERED PAIN MEDICATIONS. WAS AWAKE THIS AFTERNOON, DID NOT EAT ANY FOOD OFF MEAL TRAYS BUT REQUESTED SNACKS AND PO FLUIDS. INCONTINENT OF BOWEL, IS SOMETIMES ABLE TO USE URINAL. REFUSED ASSESSMENT/DRESSING CHANGE ON L FOOT.
--- NOTE | 2023-08-02 05:00 | NUR ---
END OF THE SHIFT SUMMARY PT APPEARED TO BE SLEEPING COMFORTABLY DURING EACH SAFETY CHECK PERFORMED OVERNIGHT. PT DENIED PAIN. PT IGNORING ALL ASSESSMENT QUESTIONS. CAREGIVERS ASKED TO CHANGE BRIEF, PT STATED IT WASN'T SOILED. WILL TRY AGAIN IN AN HOUR BEFORE SHIFT CHANGE. CALL LIGHT WITHIN REACH, WCTM.
--- NOTE | 2023-08-02 18:29 | NUR ---
SHIFT SUMMARY- PT IS SLEEPING, HE HAS HAD NO ACUTE CHANGE T/O THE DAY. HE PREFERS TO BE LEFT ALONE. HE WILL ACKNOWLEDGED THAT HE HAS PAIN (AT TIMES) BUT EVEN THEN HE DECLINES ANY PAIN MEDICATION. PT DOES NOT WANT STAFF TO PERFORM ANY ADLS HE REPOSITIONS HIMSELF IN THE BED. STAFF ENSURES ATTENDS AND LINNENS ARE CLEAN AND DRY T/O THE SHIFT. PT REFUSES BATHING ASSISTANCE. BED ALARM FOR SAFETY. PT DID USE THE CALL LIGHT ONCE TODAY TO REQUEST FOOD. THE PT RARELY EATS THIS WAS A SPECIAL OCCASION. HE ATE A LITTLE AND WENT BACK TO SLEEP. PT IS CURRENTLY IN BED, CALL LIGHT IN REACH NO S&S OF DISTRESS NOTED.
[2023-08-03] MEDS ORDERED: MICONAZOLE NIT130 GM TOP (13:45)
--- NOTE | 2023-08-03 20:11 | NUR ---
SHIFT SUMMARY- PT ALERT TO SELF, HAS HAD NO ACUTE CHANGE T/O THE SHIFT. HE HAS WOKE AND REQUESTED SNACKS AND AT ONE POINT HE CALLED AND ASKED THE FACILITY SECURITY OFFICER TO ASSIST HIM IN CHANGING HIS ATTENDS. THEN HE ALLOWED HER TO CHANGE HIM. PT IN BED, CALL LIGHT IN REACH NO S&S OF DISTRESS NOTED.
--- NOTE | 2023-08-04 20:34 | NUR ---
SHIFT [place]- PT HAS HAD NO ACUTE CHANGE T/O THE DAY. TODAY HE DECIDED HE DIDN'T WANT ANY SNACKS, HE REFUSED CARE WHEN OFFERED.
--- NOTE | 2023-08-05 04:06 | NUR ---
SHIFT SUMMARY MUNIR WAS SLEEPING AT START OF SHIFT. ORIENTATION NOT ASSESSABLE D/T LACK OF PT PARTICIPATION. PT MADE IT VERY CLEAR THAT HE WAS REFUSING CARE TONIGHT. PT IS WITHDRAWN AND EASILY IRRITATED. PROPER ASSESSMENT NOT POSSIBLE. NO ACUTE EVENTS TONIGHT, NO PT COMPLAINTS, NO APPARANT CHANGES TO PT CONDITION. PT RESTING IN BED AT A LOW POSITION WITH THE CALL LIGHT IN REACH.
--- NOTE | 2023-08-05 16:51 | NUR ---
COMFORT CARE SUMMARY PATIENT IS ALERT AND ORIENTED. PATIENT HAS HAD NO ACUTE EVENTS THIS SHIFT. PATIENT HAS DENIED ANY ATTEMPTS AT PATIENT CARE. PATIENT HAS REQUESTED SNACKS AND OFF AND ON.
--- NOTE | 2023-08-06 01:28 | NUR ---
08/05/23 2300 TOOK OVER CARE OF PT FROM COSTA JONES RN. PT LYING IN BED, EYES CLOSED, APPEARS TO BE RESTING. BREATHING IS EVEN, UNLABORED. NO APPARENT SIGNS OF DISTRESS. CALL LIGHT IS IN REACH.
--- NOTE | 2023-08-06 01:29 | NUR ---
PT LYING IN BED, EYES CLOSED, APPEARS TO BE RESTING. BREATHING IS EVEN, UNLABORE. NO APPARENT SIGNS OF DISTRESS. CALL LIGHT IS IN REACH.
--- NOTE | 2023-08-06 02:18 | NUR ---
REPORT GIVEN TO CASSANDRA HANNA RN WHO IS NOW TAKING OVER CARE OF PT.
--- NOTE | 2023-08-06 05:43 | NUR ---
SHIFT SUMMARY PT REFUSES TO ANSWER ALL QUESTIONS BUT IS ORIENTED TO SELF AND PLACE. PT IS RESISTANT TO CARE AND DENIES ASSISTANCE OFFERED. WHILE CHANGING PT AND ASKING IF HE REQUIRED MORE ASSISTANCE HE STATED "YOU CAN GET ME A GUN." THIS NURSE ANSWERED 'I CANNOT DO THAT THIS IS A HOSPITAL." AND GAVE PT EDUCATION ON SAFETY. ASSESSED RISK FOR SELF HARM AND FOUND NO PHYSICAL RISKS TO PT, PT REFUSES TO GIVE MORE INFORMATION REGARDING MENTAL STATE WHEN ASKED FURTHER QUESTIONS CONCERNING THOUGHTS OF SELF HARM. PT LEFT IN A POSITION OF SAFETY WITH APPROPRIATE FALL PRECAUTIONS IN PLACE AND CALL LIGHT IN REACH.
--- NOTE | 2023-08-06 18:36 | NUR ---
SHIFT SUMMARY PT ON COMFORT CARE. MEDIICATED FOR PAIN PER EMAR WITH TYLENOL. ALLOWED BED BATH THIS SHIFT. STATED HE JUST WANTED TO BE LEFT ALONE OTHERWISE. ATE CRACKERS AND ORANGE JUICE BUT REFUSED MEALS. BED IN LOW POSITION, CALL LIGHT WITHIN REACH.
--- NOTE | 2023-08-07 05:12 | NUR ---
1900: ASSUMED CARE OF PT, BEDSIDE REPORT RECEIVED FROM JADEN BRAXTON. PT IS LAYING IN BED ON HIS BACK AT START OF SHIFT. BREATHING IS EVEN AND UNLABORED, NOT ANSWERING STAFF QUESTIONS AT THIS TIME. DURING THE NIGHT PT REPORTED THAT HE HAD NO NEEDS AND DECLINED ANY PAIN MEDICATION, WOULD NOT RATE HIS PAIN. REPORTEDLY PT CURSED AT THE CRM COORDINATOR WHEN SHE ATTEMPTED TO CHECKS HIS ATTENDS. PT DID SHOW THAT HE WAS CLEAN AND DRY. NEEDS ADDRESSED THROUGH THE NIGHT.
--- NOTE | 2023-08-07 11:48 | NUR ---
MET WITH PATIENT. ANISHA WAS SLEEPING AND DID NOT WANT TO AWAKEN FOR ME. HE SAID HE WAS FINE WHEN I ASKED ABOUT HIS PAIN. DISCUSSED THE PATIENT WITH THE RN AND CO FOUNDER AND DIRECTOR. CO FOUNDER AND DIRECTOR REPORTED THAT HE HAD A GOOD CONVERSATION WITH THE RN YESTERDAY AND SMILED A BIT. SHE SAID THAT HIS APPETITE IS POOR STILL AND HE IS STILL SLEEPING MUCH OF THE DAY.
--- NOTE | 2023-08-07 16:31 | NUR ---
SHIFT SUMMARY NO ACUTE CHANGES TO PRESENT THIS SHIFT. PT C/O BEING HUNGRY, BUT THEN DECLINES HIS MEALS. C/O BEING IN PAIN AND THAT HIS "KNEE IS KILLING HIM", BUT ABSOLUTELY REFUSES TO TAKE ANYTHING FOR PAIN. PT OFFERED EVERYTHING ON THE EMAR AND DECLINED EVERYTHING. XTRA PILLOW GIVEN TO ELEVATE LE'S; PT GRATEFUL FOR THAT. DENIED FURTHER NEEDS. CALL LT IN REACH.
--- NOTE | 2023-08-08 04:04 | NUR ---
PT SLEPT THROUGH THE NIGHT, REPOSITIONED SELF FREQUENTLY IN BED. PT VERBALLY EXPRESSED ANNOYANCE IF OFFERED ANY FOOD/DRINK/MEDS. PT WAS VERBALLY YELLING AND REFUSING TO HAVE HIS SOILED ATTENDS CHANGED. PT TOOK COAXING INTO ALLOWING US TO CHANGE HIM. PT STATING "I DON'T CARE IF IM LAYING IN MY OWN SHIT" UPON CHANGING IT WAS NOTED THAT SKIN ON SCROTUM IS RED AND STARTING TO BREAK DOWN. PT REFUSED TO ALLOW US TO PLACE PROTECTIVE OINTMNET OR POWDER TO SITE TO PROVIDE SOME PROTECTION/RELIEF. PT DID SHOW S/S OF PAIN WHEN CHANGING HIS BRIEF BUT REFUSED ANY PAIN MEDICATION. PT DID NOT EAT OR DRINK THIS SHIFT. 08/08/22 DAYA JOHNSON RN
--- NOTE | 2023-08-08 15:33 | NUR ---
brief visit, today was good he spoke to me a little and did not swear. He is more frail. Denies pain or needs.
--- NOTE | 2023-08-08 17:42 | NUR ---
PT HAS REFUSED TURNING AND CARE SEVERAL TIMES FROM ME TODAY. DID REQUIRE HIM TO BE CHANGED THIS AFTERNOON AFTER A B/M. STATES FOOT IS PAINFUL TO TOUCH. ESPECIALLY DURING TURNING OR ROLLING. REQUEST I LEAVE ROOM SEVERAL TIMES. NO OTHER CONCERNS NOTED. BED IN LOW POSITION, CALL LITE IN REACH BED ALARM ON FOR SAFETY
--- NOTE | 2023-08-09 05:52 | NUR ---
1900: ASSUMED CARE OF PT, BEDSIDE REPORT RECEIVED FROM JADEN MEJIA. PT IS ALERT, BREATHING IS EVEN AND UNLABORED. DENIES NEEDS THROUGH THE NIGHT. REPORTS HE DOES HAVE PAIN IN BLE, DECLINES ANY INTERVENTION. REQUEST ONLY FOR WATER. SAFETY MEASURES TAKEN, ALL NEEDS ADDRESSED.
--- NOTE | 2023-08-09 12:19 | NUR ---
PATIENT REFUSING TO BE ASSESSED. BM SMEAR PRESENT IN PATIENT'S ATTENDS. PATIENT HESITANTLY LET ME CLEAN HIS BACKSIDE AND LAY A NEW ATTENDS UNDERNEATH HIM. SCROTUM AND SURROUNDING SKIN IS RED AND EXCORIATED. REFUSED BARRIER CREAM OR POWDER EVEN AFTER EDUCATION. HE STATES "ALL THAT STUFF DOES IS HURT." PATIENT CUSSED ABOUT THIS NURSE AND FLASK HANDLER IN HIS ROOM. EXPLAINED TO PATIENT WE ARE JUST TRYING TO HELP HIM GET CLEAN AND COMFORTABLE.
--- NOTE | 2023-08-09 16:39 | NUR ---
SHIFT SUMMARY TOOK OVER CARE AT 1500. REPORT FROM SUYAPA FLAHERTY. PATIENT REPORTS PAIN, BUT DENIED MEDICATION OR ALTERNATE INTERVENTION. PATIENT DENIES NAUSEA AND SHORTNESS OF BREATH. PATIENT DENIED ASSESSMENT AT 1600. PATIENT ASKED THIS RN TO LEAVE ROOM WHEN ATTEMPTING TO DO ASSESSMENT. PATIENT EATS SNACKS BUT HAS LITTLE MEAL INTAKE. PATIENT SLEPT ON AND ON FOR REST OF SHIFT. CALL LIGHT IN REACH.
--- NOTE | 2023-08-10 03:06 | NUR ---
REPAIRER HELPER SUMMARY RESMAINS ON COMFORT CARE. PT CONTINUES TO REFUSE CARE, IGNORES STAFF INTERACTIONS. REMAINS ON ISOLATION PRECAUTIONS. CALL LIGHT IN REACH. RESPS EVEN, NO S/S ACUTE DISTRESS. ENCOURAGED TO COMMUNICATE NEEDS WITH STAFF. RAILS UP X 2 FOR SAFETY. WILL CONTINUE TO MONITOR
--- NOTE | 2023-08-10 11:33 | NUR ---
SPOKE WITH BEDSIDE RN. HE IS PENDING PLACEMENT ON THE [facility]. AT THIS TIME ANISHA IS UP EATING HIS BREAKFAST. HE DID NOT ENGAGE IN MUCH CONVERSATION
--- NOTE | 2023-08-10 15:54 | NUR ---
SHIFT SUMMARY A&OX2. UNCOOPERATIVE WITH CARE. REFUSED ALL ASSESSMENTS THIS SHIFT. LETHARGIC T/O SHIFT. APPETITE LESS THAN ADEQUATE, REFUSED PROTEIN SHAKE REPLACEMENT DRINKS. NO ACUTE CHANGES. PT IS CURRENTLY SLEEPING WITH THE BED IN LOWEST POSITION. CALL LIGHT WITHIN REACH. PLAN FOR DISCHARGE TO [facility] ON Jul.
--- NOTE | 2023-08-11 06:46 | NUR ---
SHIFT SUMMARY NOC PT A/O X 4. REFUSED ALL ASSESSMENT, BUT ALLOWED FOR PERSONAL/CHARLI CARE TO BE PERFORMED AFTER INC BM. PT HAS SIGNIFICANT EXCORIATION IN CHARLI AREA, DUAL BARRIER CREAM APPLIED, PT REPORTED RELIEF FROM BURNING. PT ALSO REQUESTED SNACKS AND HAD A FULL SANDWICH AND SOME ORANGE JUICE. PT AWAITING DISCHARGE TO [facility] IN [place], [place] 08/16/23. PT IS CURRENTLY RESTING WITH BED IN LOWEST POSITION, AND CALL LIGHT WITHIN REACH.
--- NOTE | 2023-08-11 19:26 | NUR ---
PT IS ALERT. TODAY WHEN ASKING THE PT ANY QUESTIONS HE WOULD NOT ANSWER. THE PT WAS GIVEN A BED BATH EVEN THOUGH HE DECLINED AND WAS UNHAPPY DURING THE PROCEDURE HE DID ACTUALLY COOPERATE SOME. THE PT WHEN OFFERED PAIN MEDICATION OR TYLENOL HE DECLINED FROM THIS RN. CALL LIGHT IN REACH
--- NOTE | 2023-08-12 05:13 | NUR ---
SHIFT SUMMARY PT NOT ANSWERING MANY QUESTIONS. WOULD NOT TALK TO ME AT ALL AT BEGINNING OF SHIFT. WAS ABLE TO GET PT TO RESPOND TO SOME VERBAL CUES AND ACKNOWLEDGE MY PRESENCE. PT DECLINED ANY PAIN MEDS BUT DID ASK FOR WATER, OJ, AND WARM BLANKETS. BED IN LOWEST POSITION WITH CALL LIGHT IN REACH. PT IS AWAITING LTC. HAS LUIS DANIEL. INFO IN CHART.
--- NOTE | 2023-08-12 18:02 | NUR ---
SHIFT SUMMARY PATIENT IS ALERT AND ORIENTED. PATIENT HAS HAD NO ACUTE EVENTS THIS SHIFT. PATIENT REFUSED MOST CARE. PATIENT REQUESTED PAIN MEDS ONCE FOR BAUER. PATIENT HAS REQUESTED STAFF LEAVE PT ALONE.
--- NOTE | 2023-08-13 00:49 | NUR ---
PT A&OX4 PT ON COMFORT CARE PT STATES HE IS ANGRY WITH PROVIDERS AND STAFF DISCUSSED STAGES OF GRIEF AT BEDSIDE. PT STATED HE IS IN PAIN PRN MEDICATION WAS OFFERED AND ACCEPTED AT THIS TIME PT REPORTS NAUSEA BUT DECLINED MEDICATION ACCEPTED MILK AND ROOTBEER. THIS HOME HEALTH CLINICIAN DISCUSSED CARE AND HYIGENE, PT BED WAS WET FROM SPILLED URINAL PT INITALLY REFUSED CARE,BUT ALLOWED STAFF TO PLACE EGG CRATE UNDERNEATH REPOSITION AND PROVIDE PERICARE. PT WAS PAINFUL C/O RLE PAIN HIP AND BACK. PT STATED THEY WERE HOT FAN WAS PLACED AT BEDSIDE. PT LYING ON RIGHT SIDE REFUSING FURTHER CARE. RECOMMEND PALLITIVE FOLLOWUP WITH PATIENT IN AM TO DISCUSS MEDICATIONS FOR COMFORT CARE. WILL CONTINUE TO MONITOR.
--- NOTE | 2023-08-13 05:37 | NUR ---
Rn summary: No changes from earlier note by GISELA. Patients only request is for urinal to be emptied, declines any further needs at this time. Resting with eyes closed. Respirations even and unlabored. No outward signs of discomfort at this time. Call light in reach. Drsg to Rt leg intact.
--- NOTE | 2023-08-13 14:37 | NUR ---
SHIFT SUMMARY PT SLEEPING AT START OF SHIFT. PT REMAINS ON COMFORT CARE. PT REFUSING MOST CARE OFFERED. PT REFUSING MEALS, BUT DID EAT SOME CHEESE AND CRACKERS. PT REFUSING SHOWER OR BED BATH AT THIS TIME. DECLINES PAIN MEDICATION. PT CONTINUES TO SLEEP THRU OUT THE DAY, WAKING ONLY BREIFLY TO USE URINAL. CALL LT IN REACH.
--- NOTE | 2023-08-14 04:28 | NUR ---
SHIFT SUMMARY 62 YR M ADMITTED ON 06/01/23. COMFORT CARE. NO CHANGES THIS SHIFT. PT MOSTLY WANTS TO BE LEFT ALONE BUT DID ASK FOR A SMALL SNACK AND SOME JUICE. HE HAS SLEPT FOR MOST OF THIS SHIFT.
--- NOTE | 2023-08-14 17:19 | NUR ---
SHIFT SUMMARY DECLINING MOST EVERYTHING ON MEAL TRAYS. DECLINED PAIN MEDICATION. DECLINED TO SPEAK TO STAFF MOST OF SHIFT BESIDED TO ASK FOR WARM BLANKETS. . VOIDING USING URINAL. ABLE TO REPOSITION INDEPENDENTLY WITH MEANINGFUL MOVEMENTS. CARES ONGOING.
--- NOTE | 2023-08-15 15:48 | NUR ---
SHIFT SUMMARY PATIENT DECLINING HYGIENE THIS SHIFT, DECLINING MOST MEALS BUT ACCEPTS SNACKS. ABLE TO REPOSITION INDEPENDENTLY IN BED, ABLE TO USE URINAL INDEPENDENTLY. CARES ONGOING
--- NOTE | 2023-08-16 05:27 | NUR ---
SHIFT SUMMARY NOC PT A/O X 3-4. ON COMFORT CARE. PLEASANT BUT REFUSING ALL PERSONAL CARE/ASSESSMENTS. PT HAS ONLY REQUESTED FOOD/DRINK AND FOR BATTERY REPLACEMENT IN FAN. PT URINAL EMPTIED WHEN ROUNDING DONE. PT HAS DRESSING ON RLE IN PLACE AND REFUSING DRESSING CHANGE. PT HAS BEEN ACCEPTED AT [facility] IN [place], [place], WITH TENTATIVE MOVE IN DATE OF 08/26/23, BUT IS STILL WAITING ON MEDICAID APPROVAL TO MOVE FORWARD. PT IS CURRENTLY RESTING WITH BED IN LOWEST POSITION, AND CALL LIGHT WITHIN REACH.
--- NOTE | 2023-08-16 11:39 | NUR ---
PT RESPONDING TO VERBAL STIMULI THIS AM, DENIES PAIN OR NEED FOR ANYTHING AT THIS TIME. REQUESTED TO CHANGE DRESSING ON LEFT FOOT, PT DECLINED TO LET ME CHANGE IT STATING "NO NOW, MAYBE LATER." PT EDUCATED ON IMPORTANCE OF KEEPING WOUND CDI. PT CONTINUED TO DECLINE.
--- NOTE | 2023-08-16 18:06 | NUR ---
SHIFT SUMMARY: PT A/O X 4, STANDBY ASSIST. PT HAS BEEN PLEASANT WITH CARE. HAS DENIED NEED FOR A DRESSING CHANGE TO HIS L FOOT. BANDAGE APPEARS SOILED AND IS NOT INTACT AT END OF DAY AND IS REFUSING DRESSING CHANGE. PT EDUCATED ON IMPORTANCE OF DRESSING CHANGES TO PREVENT FURTHER INFECTION, AND CONTINUES TO DECLINE. PT DECLINED LINEN CHANGE ALSO. PT HAS HAD NO COMPLAINTS OF PAIN TO LEFT FOOT, DENIES NEED FOR ANY MEDICATIONS. PT HAS BEEN SELF POSITIONING HIMSELF THROUGHOUT THE DAY. REFUSES ASSISTANCE WITH REPOSITIONING.
--- NOTE | 2023-08-17 06:30 | NUR ---
SHIFT SUMMARY: PT IS ADMITTED FOR DIABETIC FOOT ULCER AND IS A DNR. IS ALERT AND ABLE TO MAKE NEEDS KNOWN. DENIED ANY CARE BY THIS NURSE. IS ON COMFORT CARE.
--- NOTE | 2023-08-17 16:35 | NUR ---
SHIFT SUMMARY: PT A/O X 4, BEDREST AT THIS TIME. PT PLEASANT BUT VERBALLY REFUSES ANY ADL CARE ACCEPT FOOD. PT DID ALLOW US TO CHANGE BEDDING AND GIVE A BEDBATH AND CHANGE HIS DRESSING TO R FOOT. LARGE ESCHAR PRESENT WITH NO DRAINAGE, FOUL ODOR PRESENT. PT DID REPORT PAIN TO FOOT ONLY WHEN TOUCHED. PT DECLINED PAIN MEDICATIONS OFFERED. WHEN ASKED WHY HE REFUSES PT STATED "I HAVE NO MOM, NO DAD AND NO SISTER, I ONLY GOT 2 BROTHERS AND I DON'T HAVE NOTHING TO DO WITH THEM." LISTENED TO PT EMPATHETICALLY, PROVIDED ENCOURAGEMENT TO ALLOW US TO HELP HIM MANAGE SYMPTOMS, PT CONTINUED TO DECLINE. PT DID HAVE BM TODAY. NO OTHER SKIN CONCERNS NOTED WITH BEDBATH.
--- NOTE | 2023-08-18 17:36 | NUR ---
PT WITHDRAWN TODAY. ASKED IF HAS ANY NEEDS TODAY MULTIPLE TIMES. STATES HAS NONE EXCEPT TO BE LEFT ALONE. REFUSED ANY MEDICINES TODAY. IS STILL ON COMFORT CARE. FOOT IS STILL WRAPPED. NO SEEPAGE NOTED THROHGH WRAP. CDI. BED IN LOW POSITION, CALL LITE IN REACH, CALLS APPROP
--- NOTE | 2023-08-19 06:22 | NUR ---
ATTEMPTED TO STRAIGHTEN OUT PATIENTS BEDDING THIS MORNING BUT HE BECAME IRRITABLE WITH MYSLEF AND AID, CUSSING AT US TO LEAVE HIS ROOM. NO EVENTS OVERNIGHT, SHIFT OTHERWISE UNREMARKABLE. URINATED TWICE VIA URINAL
--- NOTE | 2023-08-19 08:00 | NUR ---
PT SLEEPING, AWAKENS TO TOUCH. IRRITABLE. REQUEST LEAVE HIM ALONE. DENIES NEED FOR PAIN MEDS.
--- NOTE | 2023-08-19 18:30 | NUR ---
PT IRRITABLE WHEN HE IS AWAKENED BY THIS RM. OFFERED PAIN MEDS IF DESIRED. HE REFUSED. STATES TO LEAVE ALONE. PT MOVES ABOUT BED REGULARLY, USES URINAL SOMETIMES. EXPECTING BED AT FACILITY NEXT WEEK SOMETIME. NO NEW CONCERNS NOTED. BED IN LOW POSITION, CALL LITE IN REACH, BED ALARM ON FOR SFAETY
--- NOTE | 2023-08-20 05:17 | NUR ---
SHIFT SUMMARY MUNIR WAS SLEEPING, DIFFICULT TO ROUSE, AND UNABLE TO ASSESS ORIENTATION D/T COMPLIANCE WITH ASSESSMENT. PT REFUSED CARE THIS SHIFT. WE DID MANAGE TO CHANGE HIM AND ALL OF HIS BEDDING THIS SHIFT. NO CHANGES TO CONDITION, NO ACUTE EVENTS. PT RESTING IN BED AT LOW POSITION W/ CALL LIGHT IN REACH AND BED ALARM PLACED
--- NOTE | 2023-08-20 17:18 | NUR ---
SHIFT SUMMARY PT HAS REFUSED ALL CARE THIS SHIFT. THIS NURSE WOULD OFTEN GO INTO THE ROOM, SAYING THE PT'S NAME, AND IT APPEARED HE WOULD IGNORE OR REFUSE TO CONVERSE. THIS AFTERNOON, THIS NURSE WAS ABLE TO PROVIDE HIM A WARM BLANKET AND A SNACK. HE IS USING THE URINAL INDEPENDENTLY. HE STATED HE WAS IN PAIN BUT REFUSED TO TAKE ANY PAIN MEDICATIONS. CALL LIGHT WITHIN REACH, BED IN THE LOWEST POSITION. WILL REPORT TO ONCOMING NURSE.
--- NOTE | 2023-08-21 03:15 | NUR ---
SHIFT SUMMARY PT REFUSING MOST ASSESSMENT QUESTIONS AND DENIES NEEDING ANYTHING FOR PAIN. PT IS ON COMFORT CARE. USING URINAL INDEPENDENTLY. PT DID ASK FOR WARM BLANKET, SNACKS, AND DRINKS. PROVIDED TO PT. RIGHT FOOT BANDAGE WITH CECILLE BANDAGE APPEARS CLEAN AND DRY. PT HAS GUARDIAN AND IS AWAITING PLACEMENT. BED KEPT IN LOWEST POSITION WITH CALL LIGHT WITHIN REACH. PT ABLE TO MAKE NEEDS KNOWN.
--- NOTE | 2023-08-22 04:54 | NUR ---
SHIFT SUMMARY PT IS ALERT, COMFORT CARE PT. REFUSING CARE THIS SHIFT AND MEDICATIONS. PT DID ASK APPROPRAITELY FOR DRINKS AND WARM BLANKETS. WOULD NOT LET THIS NURSE TOUCH RIGHT FOOT. BANDAGE APPERARS CLEAN, DRY, AND INTACT. PT USING URINAL INDEPENDENTLY. ATTENDS CHANGED PRN WITH COMPLAINTS FROM PT. EXPLAINED IT IS IMPORTANT FOR THE PT TO KEEP SKIN CLEAN AND DRY TO PREVENT FURTHER BREAKDOWN. BED IN LOWEST POSITION WITH CALL LIGHT IN REACH.
--- NOTE | 2023-08-22 14:31 | NUR ---
pt resting plan is to discharge to facilty.
--- NOTE | 2023-08-22 18:45 | NUR ---
NO CHANGES, RELUCTANT BUT ALLOWED LUNG ASSESSMENT, SNACKS PROVIDED, DENIES NEEDS FOR PAIN MEDICATIONS
--- NOTE | 2023-08-23 04:35 | NUR ---
SHIFT SUMMARY PT REFUSING ALL INTERVENTIONS AND MEDICATIONS. CALLS FOR NEEDS APPROPRAITELY. ASKED FOR SANDWICH AND DRINKS, PROVIDED UPON REQUEST. COMFORT CARE ONLY. PT IS AWAITING PLACEMENT. [employer] INFO IN CHART. RIGHT FOOT DRESSING APPEARS CLEAN, DRY, AND INTACT. PT WOULD NOT LET ME ASSESS. BED KEPT IN LOWEST POSIITON WITH CALL LIGHT IN REACH.
[2023-08-23] MEDS ORDERED: Acetaminophen650 M1 PO (13:47)
--- NOTE | 2023-08-23 16:41 | NUR ---
SHIFT SUMMARY: PT IS A 62 YEAR OLD MALE HERE ON COMFORT CARE; AWAITING PLACEMENT AT [facility]. PLAN IS TO HAVE HIM DISCHARGE THERE ON 08/26/23. DISCHARGE DUE TO FACILITY REQUEST HAS ALREADY BEEN ENTERED. PATIENT HAS BEEN COOPERATIVE WITH MOST CARE TODAY AND PLEASANT WITH STAFF. HE IS IN BED RESTING, RESPIRATIONS EVEN AND UNLABORED, CALL LIGHT WITHIN REACH, NO SIGNS OR SYMPTOMS OF DISTRESS. EATING, DRINKING, AND VOIDING. PLAN OF CARE ONGOING.
--- NOTE | 2023-08-24 07:26 | NUR ---
SHIFT SUMMARY NO CHANGES WITH THIS PT. HE CONTINUES TO REFUSE CARE. SLEPT THROUGH NIGHT.
--- NOTE | 2023-08-24 12:37 | NUR ---
OFFER TO REPOSITION PATIENT Q2 HOURS MET WITH RESISTANCE. PATIENT IS ABLE TO MOVE AND TURN HIMSELF IF HE WANTS. HE SPEAKS ONE WORD ANSWERS. MOSTLY TO REFUSE CARE.
--- NOTE | 2023-08-24 16:29 | NUR ---
PATIENT REFUSES TURNING STILL. HE IS ABLE TO MOVE HIMSELF IN HIS BED. HE REQUESTS SANDWICHES AND CRACKERS. HE IS ALSO REQUESTING JUICES TO DRINK BUT STILL REFUSES PAIN MEDICATIONS. HE IS ALERT AND ORIENTED. ABLE TO USE HIS CALL LIGHT. PLAN IS FOR PAITENT [place] HOSPICE [place] 08/[address] [place] [facility] [place] REMAIN AVAILABLE FOR THIS PAITENT FOR ANY WANTS OR NEEDS UNTIL REPORT TO NOC SHIFT RN.
--- NOTE | 2023-08-25 06:10 | NUR ---
SHIFT SUMMARY PT SLEPT THROUGH NIGHT. CALLED FOR WARM BLANKETS APPROX. 0600. STATED HE WAS "FREEZING". PT STILL REFUSING ANY TREATMENT OR ASSESSMENTS.
--- NOTE | 2023-08-25 16:25 | NUR ---
NOTE PT AWAKE AND ALERT. WALKING IN THE ROOM. MEDCIATED WITH REGLAN X1 FOR MID STOMACH CRAMPING. FULL LIQUID DIET. PT WANTSTO ADVNCE DIET BUT SHE CONTINUES TO HAVE DISCOMFORT. DENIED BLOATING. NO BM. PASSING FLATUS. IV STILL PATENT. ANTIBIOTICS INFUSING. CARE ONGOING.
--- NOTE | 2023-08-26 04:30 | NUR ---
1900: ASSUMED CARE OF PT, BEDSIDE REPORT RECEIVED DAY SHIFT RN. PT IS LAYING IN BED WITH HOB ELEVATED. BREATHING IS EVEN AND UNLABORED, NO ACUTE DISTRESS NOTED. CALLED TO HAVE URINAL EMPTIED. FRESH BEVERAGES AND WARM BLANKETS PROVIDED. PT CALLED FOR BLANKETS, FOUND TO BE SOILED OF STOOL, BRIEF CHANGED, LINENS CHANGED, WARM BLANKETS PROVIDED. PT DENIES FURTHER NEEDS. BREATHING REMAINS EVEN AND UNLABORED. PT DECLINES FURTHER INTERVENTION. SAFETY MEASURES TAKEN AND ALL NEEDS ADDRESSED THROUGH THE SHIFT.
--- NOTE | 2023-08-26 09:23 | NUR ---
DISCHARGE PT WOUND CARE TO RIGHT FOOT DONE WITH PT ASSIST. HE IS AGREEABLE TO LEAVING. HE AGREED TO GET DRESSED WITH RED T SHIRT, BLACK SWEAT PANTS. REFUSED THE ZIP UP JACKET. ALL BELONGINGS PACKED INCLUDING LOCKED BOX. OFFERED PAIN MEDICATIONS FOR THE RIDE. HE REFUSED AND STATED, " ONLY THING TO HELP ME IS A BULLET." TRANSPORT SET FOR 1000. CARE ONGOING.
--- NOTE | 2023-08-26 10:25 | NUR ---
[facility] PT TRANSPORTED VIA [facility] TO AWAIT TRANSFER TO ANOTHER S CREW. CALLED [facility] LET THEM KNOW ETA AND TRANSPORT PLAN. PHONE NUMBER LEFT IF THEY HAVE ANY QUESTIONS...
== END 2023-08-26 10:09 | disposition home or self-care (01) ==
LOC: ER 02:23 → SURS 02:24 → MEDS 02:24 → ENPENDDIS 06-02 18:16 → MEDS 08-26 10:09
PROVIDERS: Emergency Medicine; Family Medicine; ADMIT Internal Medicine
DX: E11.621 Type 2 diabetes mellitus with foot ulcer (principal); L97.513 Non-pressure chronic ulcer of other part of right foot with necrosis of muscle; L03.115 Cellulitis of right lower limb; B37.2 Candidiasis of skin and nail; R07.9 Chest pain, unspecified; F32.2 Major depressive disorder, single episode, severe without psychotic features; Z53.29 Procedure and treatment not carried out because of patient's decision for other reasons; I10 Essential (primary) hypertension; E78.5 Hyperlipidemia, unspecified; F17.290 Nicotine dependence, other tobacco product, uncomplicated; Z66 Do not resuscitate; Z51.5 Encounter for palliative care; Z91.148 Patient's other noncompliance with medication regimen for other reason; E66.9 Obesity, unspecified; Z79.4 Long term (current) use of insulin; Z79.899 Other long term (current) drug therapy
CPT/HCPCS: 36415; 73630; 73701; 80053; 82947; 83605; 85025; 85651; 86140; 86141; 87040; 92523; 96365; 96366; 96375; 96376; 99285-25; A9270; G0378; J0295; J1815; J7030; Q9967